=== PATIENT | male | born 1960 | race Caucasian/White ===

== ENCOUNTER 2018-05-08 07:54 | Inpatient (IN) ==
[2018-05-08] MEDS ORDERED: Ondansetron 4 MG/2 ML VIAL IVP ONE (08:06)
[2018-05-08] MEDS ORDERED: Ketorolac 30 MG/ML VIAL IVP ONE (08:06)
[2018-05-08] MEDS ORDERED: Pantoprazole 40 MG VIAL IVP ONE (08:17)
[2018-05-08 08:31] LABS: Basophils % 0.4 %; Eosinophils # 0.1 K/mcL (0.0-0.6); Eosinophils % 1.2 %; Hematocrit 45.4 % (37.5-50.1); Hemoglobin 15.7 g/dL (12.9-16.9); Lymphocytes # 1.2 K/mcL (0.6-4.6); Lymphocytes % 11.1 %; Mean Corpuscular HGB Conc 34.6 g/dL (31.6-35.5); Mean Corpuscular Hemoglobin 33.6 pg (28.0-33.3); Mean Corpuscular Volume 97.2 fL (83.0-100.0); Mean Platelet Volume 8.7 fL (9.4-12.4); Monocytes # 0.5 K/mcL (0.0-1.3); Monocytes % 4.5 %; Neutrophils # 8.9 K/mcL (1.6-8.9); Platelet Count 325 K/mcL (140-400); Red Blood Count 4.67 M/mcL (4.19-5.50); Red Cell Distribution Width 11.9 % (11.5-14.5); Segmented Neutrophils % 81.8 %
--- NOTE | 2018-05-08 08:39 | Emergency Department Note ---
Disposition Clinical Impression: Small bowel obstruction Disposition: Admitted As Inpatient Abdominal Pain HPI - General Chief Complaint: ED Abdominal Pain Stated Complaint: abd pain Time Seen by Provider: 05/08/18 08:02 Source: patient, EMS Mode of arrival: ambulatory Limitations: no limitations Nursing Notes Reviewed: Yes Vital Signs Reviewed: Yes - History of Present Illness HPI Narrative: 57 year old male presents with acute abdominal pain. Pt stated it was constant sharp pain in upper abdomen and periumbilic area since 9 oclock last night (12 hours ago). Associate with nausea no vomiting. No diarrhea. No constipation. Pt stated his last time bowel movement was yesterday. Pt Subjective Complaint: abdominal pain Onset (ago): hour(s) (12) Consistency: constant Location: diffuse Pain Scale: 10 Quality: sharp - Related Data Home Medications Medication Instructions Recorded Confirmed Albuterol Sulfate [Ventolin Hfa] 2 puff IH Q6H PRN 05/08/18 05/08/18 Fenofibrate Nanocrystallized 160 mg PO DAILY 05/08/18 05/08/18 [Triglide] Fluticasone Propionate Nasal 50 mcg NS DAILY PRN 05/08/18 05/08/18 [Flonase] Metformin HCl [Metformin HCl ER] 500 mg PO DAILY 05/08/18 05/08/18 Metoprolol Succinate [Toprol Xl] 25 mg PO DAILY 05/08/18 05/08/18 Oxycodone HCl [Roxybond] 15 mg PO Q6H 05/08/18 05/08/18 Pregabalin [Lyrica] 200 mg PO TID 05/08/18 05/08/18 RX: Fluticasone/Vilanterol [Breo 1 puff IH DAILY 05/08/18 05/08/18 Ellipta 200-25 Mcg INH] RX: Furosemide [Lasix] 40 mg PO DAILY 05/08/18 05/08/18 RX: Losartan Potassium [Cozaar] 100 mg PO DAILY 05/08/18 05/08/18 Testosterone [Androgel] 4 appl TD DAILY 05/08/18 05/08/18 Allergies Allergy/AdvReac Type Severity Reaction Status Date / Time lorazepam [From Ativan] AdvReac Hallucinati Verified 05/08/18 12:06 ng Constitutional: Denies: fever Eyes: Denies: eye pain ENT ED: Denies: ear pain Respiratory: Denies: cough Gastrointestinal: Reports: abdominal pain, nausea Genitourinary: Denies: urgency Musculoskeletal: Denies: back pain Integumentary: Denies: rash Neurological: Denies: headache Psychiatric: Denies: anxiety Endocrine: Denies: fatigue Hematological/Lymphatic: Denies: easy bleeding Allergic/Immunologic: Denies: facial swelling Abdominal Pain PMH - Past Medical History Medical history: Reports: diabetes, hypertension, other Male Surgical History: Reports: other Psychiatric history: Reports: no psych history - Social History Smoking status: Current every day smoker Alcohol use: Reports: none Physical Exam - General Limitations: no limitations General appearance: alert - Head Head exam: atraumatic - Eye Eye exam: Present: normal appearance. Absent: scleral icterus - ENT ENT exam: normal exam - Neck Neck exam: Present: normal inspection - Chest Chest inspection: Present: normal inspection, symmetric chest wall rise - Respiratory Respiratory exam: Present: normal lung sounds bilaterally. Absent: respiratory distress, wheezes - Cardiovascular Cardiovascular exam: Present: regular rate, normal rhythm - Abdominal Exam Abdominal exam: Present: soft, tenderness (diffused tender in upper and periumbilic area) - Extremities Exam Extremities exam: Present: normal inspection - Back Exam Back exam: Present: normal inspection - Neurological Exam Neurological exam: Present: alert, oriented X3 - Psychiatric Psychiatric exam: Present: normal affect - Skin Skin exam: Present: warm, intact Course Vital Signs Temperature 97.6 F 05/08/18 08:02 Pulse Rate 57 05/08/18 08:02 Respiratory Rate 26 05/08/18 08:02 Blood Pressure 184/106 05/08/18 08:02 O2 Sat by Pulse Oximetry 96 05/08/18 08:02 Temperature 97.6 F 05/08/18 08:02 Pulse Rate 61 05/08/18 11:56 Respiratory Rate 18 05/08/18 11:56 Blood Pressure 178/101 05/08/18 11:56 O2 Sat by Pulse Oximetry 97 05/08/18 11:56 Oxygen Delivery Oxygen Delivery Nasal Cannula Abdominal Pain - MDM Narrative Medical decision making narrative: 57 year old male presents with acute abdominal pain for 12 hours. Nausea. No vomiting. Last bowel movement was yesterday. pt reported similar symptoms before. He was referred to specialty and supposed to have some test done. Pt is afebrile. bowel sounds normal, abdomen soft, krystle-umbilica and LUQ tender to palpation. Pt is given one dose of pain medication and nausea medication. Pt reported no pain relief. Adeel Rincon saw the patient and agrees to order abdomen CT. 10:45am spoke with radiology, concerning of small bowel obstruction, possible ca used by internal hernia. a 2cm mass in right kidney. Pt started vomiting stomach content. NG tube ordered 10:50am paged general surgeon. 11:10am Spoke with Dr. Palmer' nurse, dr. Palmer agrees to admit patient in medical floor. He will see the patient in the floor. 11:[address] Davenport, pt is accepted in hospital. - Lab Data Lab results reviewed: Yes I reviewed the patient's lab results. Result diagrams: 05/08/18 08:11 05/08/18 08:11 Lab Results 05/08/18 05/08/18 05/08/18 Range/Units 08:11 08:11 10:46 WBC 10.9 (4.3-11.1) K/mcL RBC 4.67 (4.19-5.50) M/mcL Hgb 15.7 (12.9-16.9) g/dL Hct 45.4 (37.5-50.1) % MCV 97.2 (83.0-100.0) fL MCH 33.6 H (28.0-33.3) pg MCHC 34.6 (31.6-35.5) g/dL RDW 11.9 (11.5-14.5) % Plt Count 325 (140-400) K/mcL MPV 8.7 L (9.4-12.4) fL Immature Gran % 1.0 (0-4) % Seg Neutrophils % 81.8 % Lymphocytes % 11.1 % Monocytes % 4.5 % Eosinophils % 1.2 % Basophils % 0.4 % Neutrophils # 8.9 (1.6-8.9) K/mcL Lymphocytes # 1.2 (0.6-4.6) K/mcL Monocytes # 0.5 (0.0-1.3) K/mcL Eosinophils # 0.1 (0.0-0.6) K/mcL Basophils # 0.0 (0.0-0.2) K/mcL Sodium 137 (136-145) mEq/L Potassium 4.1 (3.5-5.1) mEq/L Chloride 103 (98-107) mEq/L Carbon Dioxide 28 (23-29) mEq/L BUN 14 (6-20) mg/dL Creatinine 0.76 (0.70-1.30) mg/dL Est GFR ( Amer) > 60 (> 60) Est GFR (Non-Af Amer) > 60 (> 60) BUN/Creatinine Ratio 18 (6-26) Glucose 153 H (70-105) mg/dL Calculated Osmolality 288 (280-300) Lactic Acid (0.5-2.2) mmol/L Calcium 9.3 (8.6-10.3) mg/dL Total Bilirubin 0.5 (0.3-1.0) mg/dL AST 15 (13-39) Units/L ALT 13 (7-52) Units/L Alkaline Phosphatase 53 (34-104) Units/L Serum Total Protein 7.5 (6.4-8.9) g/dL Albumin 3.7 (3.5-5.7) g/dL Globulin 3.8 H (2.4-3.5) g/dL Albumin/Globulin Ratio 1.0 L (1.1-2.2) Lipase 10 L (11-82) Units/L Urine Color Yellow (Yellow) Urine Clarity Clear (Clear) Urine pH 8.5 H (5.0-8.0) pH Units Ur Specific [place] 1.012 (1.010-1.025) Urine Protein 30 H (Neg-Trace) mg/dL Urine Glucose (UA) Normal (Normal) mg/dL Urine Ketones Negative (Negative) mg/dL Urine Blood Negative (Negative) Urine Nitrite Negative (Negative) Urine Bilirubin Negative (Negative) Urine Urobilinogen Normal (Normal) mg/dL Ur Leukocyte Esterase Moderate H (Negative) Urine Microscopic RBC 0-3 (0-3) per hpf Urine Microscopic WBC 15-30 H (0-3) per hpf Ur Squamous Epith Cells None Seen (None-Few) per lpf Urine Bacteria Few (None-Few) per hpf Hyaline Casts None Seen (None-Few) per lpf Ur Culture Indicated? YES A (NO) 05/08/18 Range/Units 11:08 WBC (4.3-11.1) K/mcL RBC (4.19-5.50) M/mcL Hgb (12.9-16.9) g/dL Hct (37.5-50.1) % MCV (83.0-100.0) fL MCH (28.0-33.3) pg MCHC (31.6-35.5) g/dL RDW (11.5-14.5) % Plt Count (140-400) K/mcL MPV (9.4-12.4) fL Immature Gran % (0-4) % Seg Neutrophils % % Lymphocytes % % Monocytes % % Eosinophils % % Basophils % % Neutrophils # (1.6-8.9) K/mcL Lymphocytes # (0.6-4.6) K/mcL Monocytes # (0.0-1.3) K/mcL Eosinophils # (0.0-0.6) K/mcL Basophils # (0.0-0.2) K/mcL Sodium (136-145) mEq/L Potassium (3.5-5.1) mEq/L Chloride (98-107) mEq/L Carbon Dioxide (23-29) mEq/L BUN (6-20) mg/dL Creatinine (0.70-1.30) mg/dL Est GFR ( Amer) (> 60) Est GFR (Non-Af Amer) (> 60) BUN/Creatinine Ratio (6-26) Glucose (70-105) mg/dL Calculated Osmolality (280-300) Lactic Acid 1.6 (0.5-2.2) mmol/L Calcium (8.6-10.3) mg/dL Total Bilirubin (0.3-1.0) mg/dL AST (13-39) Units/L ALT (7-52) Units/L Alkaline Phosphatase (34-104) Units/L Serum Total Protein (6.4-8.9) g/dL Albumin (3.5-5.7) g/dL Globulin (2.4-3.5) g/dL Albumin/Globulin Ratio (1.1-2.2) Lipase (11-82) Units/L Urine Color (Yellow) Urine Clarity (Clear) Urine pH (5.0-8.0) pH Units Ur Specific [place] (1.010-1.025) Urine Protein (Neg-Trace) mg/dL Urine Glucose (UA) (Normal) mg/dL Urine Ketones (Negative) mg/dL Urine Blood (Negative) Urine Nitrite (Negative) Urine Bilirubin (Negative) Urine Urobilinogen (Normal) mg/dL Ur Leukocyte Esterase (Negative) Urine Microscopic RBC (0-3) per hpf Urine Microscopic WBC (0-3) per hpf Ur Squamous Epith Cells (None-Few) per lpf Urine Bacteria (None-Few) per hpf Hyaline Casts (None-Few) per lpf Ur Culture Indicated? (NO) - Radiology Data Radiology results reviewed: Yes I reviewed the patient's radiology results. Acute 1-day history of abdominal pain involving the right and left lower quadrant. History of hernia repair. FINDINGS: Lower Chest: There are calcified granulomas in the right lower lobe. Bibasilar atelectasis. Organs: Small volume of ascites around the liver. No focal hepatic lesion. Gallbladder, pancreas, adrenal glands are unremarkable. Spleen is enlarged, 17.1 cm in the craniocaudal dimension. Hypodensity in the spleen, approximately 7 mm in size, is statistically favored to be benign. Differential includes [place] body. Mild right perinephric stranding. Kidneys enhance symmetrically. There is a 1 mm nonobstructing left renal stone. Indistinct hypodensity in the right lower renal pole, approximately 2.1 x 1.7 cm in size. 8 mm right adrenal nodule, probably an adenoma. GI/Bowel: Multiple fluid-filled dilated small bowel in the left midabdomen with relative decompression of the distal colon. There is gas and stool in the proximal colon. Colonic diverticula. No evidence of diverticulitis. There is stranding of the mesentery with edema of the mesentery in the left midabdomen. Questionable tethering point in the left midabdomen raises possibility of an internal hernia. Pelvis: Bladder is decompressed. Ifnat-cd-gpyqbdtc free fluid in the pelvis. Evaluation of the left hemipelvis is limited by beam hardening artifact from left hip arthroplasty. Peritoneum/Retroperitoneum: Abdominal aorta caliber is normal. No retroperitoneal adenopathy. Bones/Soft Tissues: Fat containing anterior abdominal wall hernia with no associated inflammation or bowel herniation. No aggressive lytic or blastic bony lesion. Moderate degenerative disc disease in the lumbar spine with straightening of the lumbar lordosis. CT/CT abd pelvis w iv no oral IMPRESSION: 1. Small bowel obstruction with fluid-filled loops of small bowel in the left midabdomen. There is questionable tethering of the mesentery in the left midabdomen with relative decompression of the distal small bowel. This raises the possibility of an internal hernia versus closed loop obstruction in the left midabdomen. 2. Indistinct 2.1 x 1.7 cm hypodensity in the right lower renal pole. Recommend CT or MR per renal mass protocol on a nonemergent basis for further evaluation. 3. Nonobstructing left nephrolithiasis. 4. Splenomegaly. 5. Jxyvk-kh-vucvnjlx amount of free fluid in the right upper quadrant of the abdomen and in the pelvis. 6. Fat containing anterior abdominal wall hernia. Findings were discussed with Eber Khan at 10:40 am on 05/08/2018. D/ / 05/08/2018 10:51:22 Erlin Bautista MD / [email or web address] Interpreting Provider: Erlin Bautista MD
[2018-05-08] MEDS ORDERED: GI Cocktail 40 ML EACH PO ONE (08:47)
[2018-05-08 08:51] LABS: Alanine Aminotransferase 13 Units/L (7-52); Albumin 3.7 g/dL (3.5-5.7); Alkaline Phosphatase 53 Units/L (34-104); Aspartate Amino Transferase 15 Units/L (13-39); BUN/Creatinine Ratio 18 (6-26); Bilirubin,Total 0.5 mg/dL (0.3-1.0); Blood Urea Nitrogen 14 mg/dL (6-20); Calcium 9.3 mg/dL (8.6-10.3); Carbon Dioxide 28 mEq/L (23-29); Chloride 103 mEq/L (98-107); Globulin 3.8 g/dL (2.4-3.5); Glucose 153 mg/dL (70-105); Lipase 10 Units/L (11-82); Osmolality,Calculated 288 (280-300); Potassium 4.1 mEq/L (3.5-5.1); Sodium 137 mEq/L (136-145); Total Protein 7.5 g/dL (6.4-8.9); eGFR For Non-African Americans > 60 (> 60)
[2018-05-08] MEDS ORDERED: Isovue-370 500 ML INFUS..BTL IV ONE (09:44)
[2018-05-08] MEDS ORDERED: *HR* FentaNYL (PF) 100 MCG/2 ML VIAL IVP ONE ×2 (10:48→11:42)
[2018-05-08] MEDS ORDERED: 0.9 % Sodium Chloride 1,000 ML IVC ONE ×2 (10:49→21:33)
--- NOTE | 2018-05-08 10:52 | Emergency Department Note ---
Disposition Clinical Impression: Small bowel obstruction Disposition: Admitted As Inpatient Referrals: Keith Spann MD [Primary Care Provider] - Forms: ED Satisfaction Letter, Work/School Release General Adult HPI - General Chief complaint: ED Abdominal Pain Stated complaint: abd pain Time Seen by Provider: 05/08/18 08:02 Source: patient, EMS Mode of arrival: ambulatory Limitations: no limitations - History of Present Illness Pain Scale: 10 - Related Data Home Medications Medication Instructions Recorded Confirmed Androgel 12/30/16 Breo Ellipta 200-25 Mcg INH 12/30/16 Celecoxib [Celebrex] 200 mg PO DAILY 12/30/16 12/30/16 Fenofibrate Nanocrystallized 160 mg PO 12/30/16 [Triglide] Flovent Hfa 12/30/16 Furosemide [Lasix] 40 mg PO DAILY 12/30/16 12/30/16 Ipratropium/Albuterol Neb [Duoneb] 12/30/16 Ketoconazole 2% CRM 12/30/16 Losartan Potassium [Cozaar] 100 mg PO DAILY 12/30/16 12/30/16 Metformin HCl [Metformin HCl ER] 500 mg PO 12/30/16 Metoprolol Succinate 25 mg PO 12/30/16 Oxycodone HCl [Oxycodone HCl ER] 15 mg PO 12/30/16 Pregabalin [Lyrica] 100 mg PO 12/30/16 Sildenafil Citrate [Viagra] 12/30/16 12/30/16 SitaGLIPtin [Januvia] 100 mg PO DAILY 12/30/16 12/30/16 Triamcinolone Acet 12/30/16 Previous Rx's Medication Instructions Recorded Mupirocin [Bactroban Oint] 1 appl TP BID 7 Days tube 12/30/16 Sulfamethoxazole/Trimeth DS 1 each PO BID #14 tablet 12/30/16 [Bactrim DS] Benzonatate [Tessalon] 200 mg PO TID PRN #30 capsule 08/22/17 GuaiFENesin ER [Mucinex] 1,200 mg PO BID #20 tbbp.12hr 08/22/17 cephALEXin [Keflex] 500 mg PO QID #40 capsule 08/22/17 methylPREDNISolone [Medrol] 4 mg PO TAPER #21 tablet 08/22/17 Allergies Allergy/AdvReac Type Severity Reaction Status Date / Time lorazepam [From Ativan] Allergy Hallucinati Verified 05/08/18 08:02 ng Past Medical History - Past Medical History Medical history: Reports: diabetes, hypertension, other Psychiatric history: Reports: no psych history - Social History Smoking Status: Current every day smoker Smokeless Tobacco Status: No Alcohol use: Reports: none Physical Exam - General Limitations: no limitations General appearance: alert Course Vital Signs Temperature 97.6 F 05/08/18 08:02 Pulse Rate 57 05/08/18 08:02 Respiratory Rate 26 05/08/18 08:02 Blood Pressure 184/106 05/08/18 08:02 O2 Sat by Pulse Oximetry 96 05/08/18 08:02 Temperature 97.6 F 05/08/18 08:02 Pulse Rate 69 05/08/18 09:51 Respiratory Rate 20 05/08/18 09:51 Blood Pressure 156/93 05/08/18 09:51 O2 Sat by Pulse Oximetry 98 05/08/18 09:51 Oxygen Delivery Oxygen Delivery Nasal Cannula Medical Decision Making - Lab Data Result diagrams: 05/08/18 08:11 05/08/18 08:11 Lab Results 05/08/18 05/08/18 Range/Units 08:11 08:11 WBC 10.9 (4.3-11.1) K/mcL RBC 4.67 (4.19-5.50) M/mcL Hgb 15.7 (12.9-16.9) g/dL Hct 45.4 (37.5-50.1) % MCV 97.2 (83.0-100.0) fL MCH 33.6 H (28.0-33.3) pg MCHC 34.6 (31.6-35.5) g/dL RDW 11.9 (11.5-14.5) % Plt Count 325 (140-400) K/mcL MPV 8.7 L (9.4-12.4) fL Immature Gran % 1.0 (0-4) % Seg Neutrophils % 81.8 % Lymphocytes % 11.1 % Monocytes % 4.5 % Eosinophils % 1.2 % Basophils % 0.4 % Neutrophils # 8.9 (1.6-8.9) K/mcL Lymphocytes # 1.2 (0.6-4.6) K/mcL Monocytes # 0.5 (0.0-1.3) K/mcL Eosinophils # 0.1 (0.0-0.6) K/mcL Basophils # 0.0 (0.0-0.2) K/mcL Sodium 137 (136-145) mEq/L Potassium 4.1 (3.5-5.1) mEq/L Chloride 103 (98-107) mEq/L Carbon Dioxide 28 (23-29) mEq/L BUN 14 (6-20) mg/dL Creatinine 0.76 (0.70-1.30) mg/dL Est GFR ( Amer) > 60 (> 60) Est GFR (Non-Af Amer) > 60 (> 60) BUN/Creatinine Ratio 18 (6-26) Glucose 153 H (70-105) mg/dL Calculated Osmolality 288 (280-300) Calcium 9.3 (8.6-10.3) mg/dL Total Bilirubin 0.5 (0.3-1.0) mg/dL AST 15 (13-39) Units/L ALT 13 (7-52) Units/L Alkaline Phosphatase 53 (34-104) Units/L Serum Total Protein 7.5 (6.4-8.9) g/dL Albumin 3.7 (3.5-5.7) g/dL Globulin 3.8 H (2.4-3.5) g/dL Albumin/Globulin Ratio 1.0 L (1.1-2.2) Lipase 10 L (11-82) Units/L Attestation Statement - Attestation Attestation: 57 year old male presents to the ED with complaints of abdominal pain. Itappears on CT he has a small bowel obstruction and renal mass. We will consult with surgery and then admit For this encounter, I have reviewed the CHILD CARE EDUCATION COORDINATOR or PA documentation, treatment plan, and medical decision making; and I have had face to face time with this patient.
[2018-05-08 10:59] LABS: Bacteria,Urine Few per hpf (None-Few); Bilirubin,Urine Negative (Negative); Blood,Urine Negative (Negative); Clarity,Urine Clear (Clear); Color,Urine Yellow (Yellow); Hyaline Casts,Urine None Seen per lpf (None-Few); Ketones,Urine Negative (Negative); Leukocyte Esterase,Urine Moderate (Negative); Nitrite,Urine Negative (Negative); PH,Urine 8.5 pH Units (5.0-8.0); Protein,Urine 30 mg/dL (Neg-Trace); RBC,Urine 0-3 per hpf (0-3); Specific Gravity,Urine 1.012 (1.010-1.025); Squamous Epithelial Cell,Urine None Seen per lpf (None-Few); Urobilinogen,Urine Normal (Normal); WBC,Urine 15-30 per hpf (0-3)
[2018-05-08] MEDS ORDERED: Ondansetron 4 MG/2 ML VIAL IM ONE (11:00)
[2018-05-08 11:01] LABS: Glucose,Urine (UA) Normal (Normal)
[2018-05-08] MEDS ORDERED: Naloxone 0.4 MG/ML INJ IVP PRN ×2 (12:20→21:33)
[2018-05-08] MEDS ORDERED: Fluticasone Propionate Nasal 50 MCG/SPRAY BOTTLE NS PRN ×2 (12:29→21:33)
[2018-05-08] MEDS ORDERED: 0.9 % Sodium Chloride 1,000 ML IVC SCH ×2 (12:30→21:33)
[2018-05-08] MEDS ORDERED: *HR* OxyCODONE Immed Rel 15 MG TABLET PO SCH (12:30)
[2018-05-08] MEDS ORDERED: Ketorolac 30 MG/ML VIAL IVP PRN (12:34)
--- NOTE | 2018-05-08 12:52 | Internal Med History&Physical ---
Date of Encounter: 05/08/18 Time of Encounter: 11:00 Internal Medicine - H&P: HPI Chief complaint: Abdominal pain Admitted From: Home Plans for Post Hospital Care: Home History of present illness: Patient is a 57-year-old male with past medical history significant for diabetes and hypertension who presents to the ER on 05/08/18 due to abdominal pain. Patient reports a long-standing history of intermittent abdominal pain for last couple years and was supposed to have been seen by GI as an outpatient for workup. Patient reports however for the last 24 hours of sharp periumbilical abdominal pain which is constant without any provoking or relieving factors. Patient reports associated symptoms of nausea. Patient was brought to the ER for further evaluation. In the ER, CT of the abdomen showed small bowel obstruction with fluid-filled loops of small bowel in the left mid abdomen with questionable tethering of the mesentery in the left mid abdomen with relative decompression of the distal small bowel with concerns for internal hernia versus closed loop obstruction. Surgery was consulted from the ER and will be admitted for management for small bowel obstruction. Past Med Surg Social Fam HX - Past Medical History Medical history: diabetes, hypertension, other Additional medical history: unspecified lung problems Psychiatric history: no psych history - Past Surgical History Additional surgical history: abd surgery - Social History Smoking Status: Current every day smoker Smokeless Tobacco Status: No Alcohol use: none - Additional Family History Additional family history: Family history reviewed and noncontributory Internal Medicine - H&P: Meds Albuterol Sulfate [Ventolin Hfa] 2 puff IH Q6H PRN 05/08/18 [History] Fenofibrate Nanocrystallized [Triglide] 160 mg PO DAILY 05/08/18 [History] Fluticasone Propionate Nasal [Flonase] 50 mcg NS DAILY PRN 05/08/18 [History] Fluticasone/Vilanterol [Breo Ellipta 200-25 Mcg INH] 1 puff IH DAILY 05/08/18 [History] Furosemide [Lasix] 40 mg PO DAILY 05/08/18 [History] Losartan Potassium [Cozaar] 100 mg PO DAILY 05/08/18 [History] Metformin HCl [Metformin HCl ER] 500 mg PO DAILY 05/08/18 [History] Metoprolol Succinate [Toprol Xl] 25 mg PO DAILY 05/08/18 [History] Oxycodone HCl [Roxybond] 15 mg PO Q6H 05/08/18 [History] Pregabalin [Lyrica] 200 mg PO TID 05/08/18 [History] Testosterone [Androgel] 4 appl TD DAILY 05/08/18 [History] Allergy/AdvReac Type Severity Reaction Status Date / Time lorazepam [From Ativan] AdvReac Hallucinati Verified 05/08/18 12:06 ng All Systems PM: A 10-system review of systems was performed and is negative for pertinent findings except as documented above in the HPI. - Constitutional Vitals: Temp Pulse Resp BP Pulse Ox 97.6 F 61 18 178/101 97 05/08/18 08:02 05/08/18 11:56 05/08/18 11:56 05/08/18 11:56 05/08/18 11:56 General appearance: Present: A&O X 3, no acute distress Exam: As above - Head Head exam: Present: normocephalic - Eye Eye exam: Present: normal appearance - ENT ENT exam: Present: mucous membranes moist - Respiratory Respiratory exam: Present: CTAB. Absent: accessory muscle use, rales, rhonchi, wheezes - Cardiovascular Cardiovascular exam: Present: RRR, +S1, +S2. Absent: diastolic murmur, gallop, rubs, systolic murmur - GI/Abdominal GI/Abdominal exam: Present: soft, tenderness (Her last tetanus to palpation). Absent: distended, no peritoneal signs - Extremities Exam Extremities exam: Absent: pedal edema - Neurological Exam Neurological exam: Present: oriented X3 - Psychiatric Psychiatric exam: Present: normal mood - Skin Skin exam: Present: normal color Internal Med - H&P Results - Labs CBC & Chem 7: 05/08/18 08:11 05/08/18 08:11 Labs: Short CBC 05/08/18 Range/Units 08:11 WBC 10.9 (4.3-11.1) K/mcL Hgb 15.7 (12.9-16.9) g/dL Hct 45.4 (37.5-50.1) % Plt Count 325 (140-400) K/mcL Neutrophils # 8.9 (1.6-8.9) K/mcL BMP 05/08/18 08:11 Sodium 137 Potassium 4.1 Chloride 103 Carbon Dioxide 28 BUN 14 Creatinine 0.76 Glucose 153 H Calcium 9.3 Liver Function 05/08/18 Range/Units 08:11 Total Bilirubin 0.5 (0.3-1.0) mg/dL AST 15 (13-39) Units/L ALT 13 (7-52) Units/L Alkaline Phosphatase 53 (34-104) Units/L Albumin 3.7 (3.5-5.7) g/dL Urine 05/08/18 Range/Units 10:46 Urine Color Yellow (Yellow) Urine Clarity Clear (Clear) Urine pH 8.5 H (5.0-8.0) pH Units Ur Specific [place] 1.012 (1.010-1.025) Urine Protein 30 H (Neg-Trace) mg/dL Urine Glucose (UA) Normal (Normal) mg/dL - Impressions ITS Impressions Abdomen/Pelvis CT 05/08/18 09:44 IMPRESSION: 1. Small bowel obstruction with fluid-filled loops of small bowel in the left midabdomen. There is questionable tethering of the mesentery in the left midabdomen with relative decompression of the distal small bowel. This raises the possibility of an internal hernia versus closed loop obstruction in the left midabdomen. 2. Indistinct 2.1 x 1.7 cm hypodensity in the right lower renal pole. Recommend CT or MR per renal mass protocol on a nonemergent basis for further evaluation. 3. Nonobstructing left nephrolithiasis. 4. Splenomegaly. 5. Myoio-ck-lcufvmek amount of free fluid in the right upper quadrant of the abdomen and in the pelvis. 6. Fat containing anterior abdominal wall hernia. Findings were discussed with Eber Khan at 10:40 am on 05/08/2018. D/ / 05/08/2018 10:51:22 Erlin Bautista MD / [email or web address] Interpreting Provider: Erlin Bautista MD KUB X-Ray 05/08/18 11:40 IMPRESSION: Intestinal tube terminates in the stomach. Diffuse mild prominence of the intestinal tract is noted with ileus or obstruction possible. No free air is noted. D/ / Alla Armenta MD / Alla Armenta MD Interpreting Provider: Alla Armenta MD - Assessment and plan (1) Small bowel obstruction Current Visit: Yes Status: Acute Assessment and plan: Patient reports however for the last 24 hours of sharp periumbilical abdominal pain which is constant without any provoking or relieving factors. In the ER, CT of the abdomen showed small bowel obstruction with fluid-filled loops of small bowel in the left mid abdomen with questionable tethering of the mesentery in the left mid abdomen with relative decompression of the distal small bowel with concerns for internal hernia versus closed loop obstruction. Will maintain NG tube placed in the ER. General surgery was consulted and appreciate recommendations. (2) HTN (hypertension), benign Current Visit: Yes Status: Acute Assessment and plan: Will continue patient's home blood pressure medications (3) Diabetes Current Visit: Yes Status: Acute Assessment and plan: Will hold patient's metformin while nothing by mouth and monitor blood sugars. Qualifiers: Chronic kidney disease stage: unspecified stage Qualified Code(s): E08.22 - Diabetes mellitus due to underlying condition with diabetic chronic kidney disease; Z79.4 - half-way (current) use of insulin (4) DVT prophylaxis Current Visit: Yes Status: Acute Assessment and plan: Subcutaneous heparin - Time Spent With Patient Total time spent is greater than 50% in coordination of care (as documented) at patient's floor/unit and/or counseling patient:
[2018-05-08] MEDS ORDERED: OXYCODONE Oral CONC 10 MG/0.5 ML ORAL.SYG SL PRN (14:20)
--- NOTE | 2018-05-08 14:52 | General Surgery Consult Note ---
Date of Encounter: 05/08/18 Time of Encounter: 14:44 Assessment and Plan (1) Small bowel obstruction Current Visit: Yes Status: Acute 57M multiple comorbidities, significant weight loss, with small bowel obstruction concerning for an internal hernia; non peritoneal; NPO IVF NG tube pain control discussed with patient concerning operative intervention; patient is agreeable History of Present Illness Consult date: 05/08/18 Reason for consult: abdominal pain History of present illness: 57M h/o obesity, current smoker, HTN, borderline DM with a long standing history (4-6 months) of intermittend abdominal pain that suddenly got worse overnight. The pain is localized to the left periumbilical region, non radiating, with no alleviating or exacerbating factors. the pain is sharp in nature. The patient states that although it has been an ongoing issue, he states that now the pain is constant and progressively getting worse. no reports of systemic symptoms, such as fevers, chills, vomiting (he does report nausea), chest pain, shortness of breath, nor lightheadedness Of note, the patient has lost a tremendous amount of weight. Per his daughter he has lost about 200lbs over the last 3 months. He has not had gastric bypass surgery. No prior colonoscopies. A CT scan was ordered, which was reviewed and interpreted by me, which demonstrated a small bowel obstruction, possible mesenteric whirling, which is concerning for an internal hernia. Surgery was consulted for management recommendations. Past Med Surg Social Fam HX - Past Medical History Medical history: COPD, diabetes, hypertension, other Additional medical history: unspecified lung problems Psychiatric history: no psych history - Past Surgical History Surgical History: other (open hernia repair, prior ex lap for sbo) Additional surgical history: abd surgery- hernia repair - Social History Smoking Status: Current every day smoker Packs per day: 1 pack per day of cigars (5 cigars) Smokeless Tobacco Status: No Alcohol use: none Medications and Allergies Albuterol Sulfate [Ventolin Hfa] 2 puff IH Q6H PRN 05/08/18 [History] Fenofibrate Nanocrystallized [Triglide] 160 mg PO DAILY 05/08/18 [History] Fluticasone Propionate Nasal [Flonase] 50 mcg NS DAILY PRN 05/08/18 [History] Fluticasone/Vilanterol [Breo Ellipta 200-25 Mcg INH] 1 puff IH DAILY 05/08/18 [History] Furosemide [Lasix] 40 mg PO DAILY 05/08/18 [History] Losartan Potassium [Cozaar] 100 mg PO DAILY 05/08/18 [History] Metformin HCl [Metformin HCl ER] 500 mg PO DAILY 05/08/18 [History] Metoprolol Succinate [Toprol Xl] 25 mg PO DAILY 05/08/18 [History] Oxycodone HCl [Roxybond] 15 mg PO Q6H 05/08/18 [History] Pregabalin [Lyrica] 200 mg PO TID 05/08/18 [History] Testosterone [Androgel] 4 appl TD DAILY 05/08/18 [History] Allergy/AdvReac Type Severity Reaction Status Date / Time lorazepam [From Ativan] AdvReac Hallucinati Verified 05/08/18 12:06 ng Review of Systems All systems PM: 12 point ROS negative besides HPI findings General Surgery Exam Initial Vital Signs Temp Pulse Resp BP Pulse Ox 97.6 F 57 26 184/106 96 05/08/18 08:02 05/08/18 08:02 05/08/18 08:02 05/08/18 08:02 05/08/18 08:02 - General physical appearance no distress, moderate pain - Eyes normal ocular movement - ENT normocephalic - Neck no lymphadectomy - Respiratory normal expansion, normal respiratory effort - Cardiovascular Cardiovascular exam: Present: RRR - Abdomen Abdomen general surgery: Present: soft, tender (non peritoneal on exam), surgical scars Hernia: Present: none (no external hernias on exam) - Integumentary Integumentary general surgery: Present: warm and dry, no abnormal pigmentation - Neurologic Present: CN 2-12 grossly intact - Musculoskeletal Present: normal posture - Psychiatric Psychiatric general surgery: Present: A&Ox3 Exam Initial Vital Signs Temp Pulse Resp BP Pulse Ox 97.6 F 57 26 184/106 96 05/08/18 08:02 05/08/18 08:02 05/08/18 08:02 05/08/18 08:02 05/08/18 08:02 Results - Labs 05/08/18 08:11 05/08/18 08:11 Abnormal lab results MCH 33.6 pg (28.0-33.3) H 05/08/18 08:11 MPV 8.7 fL (9.4-12.4) L 05/08/18 08:11 Glucose 153 mg/dL (70-105) H 05/08/18 08:11 Globulin 3.8 g/dL (2.4-3.5) H 05/08/18 08:11 Albumin/Globulin Ratio 1.0 (1.1-2.2) L 05/08/18 08:11 Lipase 10 Units/L (11-82) L 05/08/18 08:11 Urine pH 8.5 pH Units (5.0-8.0) H 05/08/18 10:46 Urine Protein 30 mg/dL (Neg-Trace) H 05/08/18 10:46 Ur Leukocyte Esterase Moderate (Negative) H 05/08/18 10:46 Urine Microscopic WBC 15-30 per hpf (0-3) H 05/08/18 10:46 Ur Culture Indicated? YES (NO) A 05/08/18 10:46 Diabetes panel 05/08/18 Range/Units 08:11 Sodium 137 (136-145) mEq/L Potassium 4.1 (3.5-5.1) mEq/L Chloride 103 (98-107) mEq/L Carbon Dioxide 28 (23-29) mEq/L BUN 14 (6-20) mg/dL Creatinine 0.76 (0.70-1.30) mg/dL Glucose 153 H (70-105) mg/dL Calcium 9.3 (8.6-10.3) mg/dL AST 15 (13-39) Units/L ALT 13 (7-52) Units/L Alkaline Phosphatase 53 (34-104) Units/L Albumin 3.7 (3.5-5.7) g/dL Calcium panel 05/08/18 Range/Units 08:11 Calcium 9.3 (8.6-10.3) mg/dL Albumin 3.7 (3.5-5.7) g/dL Pituitary panel 05/08/18 Range/Units 08:11 Sodium 137 (136-145) mEq/L Potassium 4.1 (3.5-5.1) mEq/L Chloride 103 (98-107) mEq/L Carbon Dioxide 28 (23-29) mEq/L BUN 14 (6-20) mg/dL Creatinine 0.76 (0.70-1.30) mg/dL Glucose 153 H (70-105) mg/dL Calcium 9.3 (8.6-10.3) mg/dL Adrenal panel 05/08/18 Range/Units 08:11 Sodium 137 (136-145) mEq/L Potassium 4.1 (3.5-5.1) mEq/L Chloride 103 (98-107) mEq/L Carbon Dioxide 28 (23-29) mEq/L BUN 14 (6-20) mg/dL Creatinine 0.76 (0.70-1.30) mg/dL Glucose 153 H (70-105) mg/dL Calcium 9.3 (8.6-10.3) mg/dL Total Bilirubin 0.5 (0.3-1.0) mg/dL AST 15 (13-39) Units/L ALT 13 (7-52) Units/L Alkaline Phosphatase 53 (34-104) Units/L Albumin 3.7 (3.5-5.7) g/dL All other labs normal. - Imaging CT scan - abdomen: report reviewed, image reviewed CT scan - pelvis: report reviewed, image reviewed Consult Discharge Plan - Plan Referrals: Keith Spann MD [Primary Care Provider] -
--- NOTE | 2018-05-08 14:56 | Anesthesia Evaluation PreOp ---
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: Other (spinal stenosis) Other Medical History: Hepatic (Hep C), Renal (stones), Diabetes Type II (oral medications only, well controlled), Other (small bowel obstuction, abd wall hernia, obesity) Anesthesia History: No Prior Anesthetic Complications, Past Anesthesia (hernia repair, ex lap) Alcohol Use: none Medications and Allergies Albuterol Sulfate [Ventolin Hfa] 2 puff IH Q6H PRN 05/08/18 [History] Fenofibrate Nanocrystallized [Triglide] 160 mg PO DAILY 05/08/18 [History] Fluticasone Propionate Nasal [Flonase] 50 mcg NS DAILY PRN 05/08/18 [History] Fluticasone/Vilanterol [Breo Ellipta 200-25 Mcg INH] 1 puff IH DAILY 05/08/18 [History] Furosemide [Lasix] 40 mg PO DAILY 05/08/18 [History] Losartan Potassium [Cozaar] 100 mg PO DAILY 05/08/18 [History] Metformin HCl [Metformin HCl ER] 500 mg PO DAILY 05/08/18 [History] Metoprolol Succinate [Toprol Xl] 25 mg PO DAILY 05/08/18 [History] Oxycodone HCl [Roxybond] 15 mg PO Q6H 05/08/18 [History] Pregabalin [Lyrica] 200 mg PO TID 05/08/18 [History] Testosterone [Androgel] 4 appl TD DAILY 05/08/18 [History] Allergy/AdvReac Type Severity Reaction Status Date / Time lorazepam [From Ativan] AdvReac Hallucinati Verified 05/08/18 12:06 ng - Meds/Allergy Pre-op Review Medications Reviewed: Yes Allergies Reviewed: Yes Beta Blockers on Current Med List: Yes (metoprolol) If Beta Blockers taken, Date/Time (Last Dose taken): not administered today Anesthesia Results - Labs 05/08/18 08:11 05/08/18 08:11 - Imaging Additional studies: 05-08-18 CT abd/pelvis with IV (no oral) contrast: IMPRESSION: 1. Small bowel obstruction with fluid-filled loops of small bowel in the left midabdomen. There is questionable tethering of the mesentery in the left midabdomen with relative decompression of the distal small bowel. This raises the possibility of an internal hernia versus closed loop obstruction in the left midabdomen. 2. Indistinct 2.1 x 1.7 cm hypodensity in the right lower renal pole. Recommend CT or MR per renal mass protocol on a nonemergent basis for further evaluation. 3. Nonobstructing left nephrolithiasis. 4. Splenomegaly. 5. [id number] amount of free fluid in the right upper quadrant of the abdomen and in the pelvis. 6. Fat containing anterior abdominal wall hernia. Findings were discussed with Eber Khna at 10:40 am on 05/08/2018. Anesthesia Exam Last Vital Signs Temp 98.1 F 05/08/18 13:15 Pulse 68 05/08/18 13:15 Resp 16 05/08/18 13:15 BP 196/68 05/08/18 13:15 Pulse Ox 98 05/08/18 13:15 - HEENT Pupil (Motor): Pupils equal, EOMI Mallampati: III Teeth: Edentulous (facial hair) Oral Opening: Greater than 3 - KOSHER DIETARY SERVICE MANAGER LOC: Oriented - Cardiac Rhythm: Regular Murmur: None - Pulmonary Breath Sounds: bilateral Clear Respiratory Effort: Symmetrical Anesthesia Assess/Plan ASA Score: 4 (HTN/HLD, smoker, SHANE, COPD requiring 3-4L oxygen all the time, DM II, Hep C, obesity, spinal stenosis) Level of consciousness: Agitated (patient is in pain) Anesthetic Plan: General Monitoring Plan: Standard Monitors Recovery Plan: PACU
[2018-05-08] MEDS ORDERED: *HR* Promethazine 25 MG/ML VIAL IVP PRN ×2 (15:37→21:33)
[2018-05-08] MEDS ORDERED: Piperacillin/Tazobactam 3.375 GM in 0.9 % Sodium Chloride Mini Bag 100 ML IVPB SCH (16:00)
[2018-05-08] MEDS: Pregabalin 50 MG CAPSULE PO SCH ×2 (16:12→22:43)
[2018-05-08] MEDS ORDERED: *HR* Succinylcholine 200 MG/10 ML VIAL IVP ONE (17:07)
[2018-05-08] MEDS ORDERED: *HR* Midazolam HCl 2 MG/2 ML VIAL ONE (17:07)
[2018-05-08] MEDS ORDERED: Lidocaine -MPF 2% 2 ML VIAL ONE (17:07)
[2018-05-08] MEDS ORDERED: *HR* Propofol 200 MG/20 ML VIAL IVP ONE ×3 (17:07→20:35)
[2018-05-08] MEDS ORDERED: *HR* FentaNYL (PF) 100 MCG/2 ML VIAL ONE ×2 (17:07→18:24)
[2018-05-08] MEDS ORDERED: Acetaminophen IV 1,000 MG/100 ML INFUS..BTL ONE (17:59)
[2018-05-08] MEDS ORDERED: *HR* Metoprolol 5 MG/5 ML VIAL IVP ONE ×2 (18:04→20:12)
[2018-05-08] MEDS ORDERED: *HR* Rocuronium Bromide 50 MG/5 ML VIAL ONE ×2 (18:26→19:52)
[2018-05-08] MEDS ORDERED: Dexamethasone 4 MG/ML VIAL ONE (18:32)
[2018-05-08] MEDS ORDERED: Ondansetron 4 MG/2 ML VIAL ONE ×2 (18:32→20:12)
[2018-05-08] MEDS ORDERED: *HR* OxyCODONE Immed Rel 5 MG TABLET PO PRN (19:28)
[2018-05-08] MEDS ORDERED: *HR* HYDROmorphone (PF) 1 MG/ML SYRINGE IVP PRN (19:28)
[2018-05-08] MEDS ORDERED: *HR* Morphine 10 MG/ML VIAL ONE ×2 (19:30→20:05)
[2018-05-08] MEDS ORDERED: Lidocaine -MPF 4% 5 ML AMPUL ONE (20:22)
[2018-05-08] MEDS ORDERED: Ketorolac 30 MG/ML VIAL ONE (20:39)
--- NOTE | 2018-05-08 21:16 | Operative Note ---
Date of procedure: 05/08/18 Pre-op diagnosis: small bowel obstruction 2/2 internal hernia Post-op diagnosis: same Procedure: exploratory laparotomy lysis of adhesions x 60min reduction of internal hernia small bowel resection with stapled anastamosis Implants: none Complications: none Anesthesia: GETA Local Anesthetics: 0.5% Sensorcaine HCL SubQ (cc) Surgeon: Giles Palmer Was there an evaluation assistant present: No Clinical Audiologist Other: Marciajackie Love Estimated blood loss (cc): 25 Specimen: ischemic bowel - jejunum Condition: stable Disposition: PACU Procedure in Detail: patient was brought into the operating room suite. Placed in supine position. Mechanical DVT prophylaxis was placed. Underwent smooth induction of anesthesia. Preoperative antibiotics were given. Rogers catheter placed. Prepped and draped in the usual fashion. A timeout was held identifying correct patient, pathology, procedure, and physician. I created a midline incision. I created an incision to encompass the prior surgical scar and excised it. I dissected through the tissues using electocautery (controlling for hemostasis along the way), until i entered the abdomen. I took down all adhesions along the midline and lateral abdominal wall using blunt dissection, electrocautery, and the ligasure device. It was mainly omentum that was adhered to the anterior abdominal wall. upon entering the bowel, the was dilated bowel up to the ligament of treitz. I took down several intraloops in the jejunum using blunt dissecion and sharp dissection with the metzenbaum scissors. I then continued to run the bowel until I encountered a segment of bowel that was trapped within a small mesenteric defect near the base of the mesentery. There was about a 30cm segment of compromised bowel (ischemic). I placed a maninder distal to the ischemic segment and continued running the bowel. There were multiple segments of interloop adhesions. Again, I was able to appreciate a small space for an internal hernia. I continued to lyse adhesions until they were all taken down. I followed the bowel all the way to the cecum and palpated the large intestine for masses or abnormalities. It was full of soft stool. I then went back and focused my attention the segment of ischemic bowel. I created a mesenteric window both proximal and distal to the ischemic segment. Used the GIOVANNI linear stapler for the bowel to staple across the bowel. I used the ligasure to ligate the mesentery then remove the segment. I then cut off the corner of the stapled end using benites scissors, dilated both proximal and distal segments and inserted the linear stapler. I fired two loads and then closed the opening with at TA stapler. I used two silk sutures at the 'crotch' of the staple line to reduce tension. Satisfied with my repair, I started the closing procedure. I removed my top glove and replaced with a clean one. I then closed the fascia using the looped PDS suture in a running fashion. I then reapproximated the dermal layer using 3-0 vicryl in an interrupted fashion. I then stapled the skin closed. I applied the PATRICIA dressing to the incision. I then used local anesthetic as a nerve block. I then concluded the procedure. The patient tolerated it well and was escorted to PACu in stable condition
[2018-05-08] MEDS ORDERED: *HR* Metoprolol 5 MG/5 ML VIAL IVP PRN (21:33)
[2018-05-08] MEDS ORDERED: *HR* HYDROmorphone 20 MG/20 ML PCA IVC PRN (21:33)
--- NOTE | 2018-05-08 21:35 | Anesthesia Evaluation Post Op ---
Date of Encounter: 05/08/18 Time of Encounter: 21:34 - Discharge PostOp Status: Transfer Patient to floor (PATIENT'S VITAL SIGNS HAVE BEEN REVIEWED. PATIENT IS STABLE POSTOPERATIVELY AND HAS ADEQUATELY RECOVERED FROM ANESTHESIA. PATIENT IS DETERMINED TO HAVE STABLE AIRWAY PATENCY AND RESPIRATORY FUNCTION INCLUDING RESPIRATORY RATE AND OXYGEN SATURATION. PATIENT HAS A STABLE HEART RATE, BLOOD PRESSURE AND ADEQUATE HYDRATION. PATIENTS MENTAL STATUS IS ACCEPTABLE. PATIENTS TEMPERATURE IS APPROPRIATE. PAIN AND NAUSEA ARE ADEQUATELY CONTROLLED.)
[2018-05-08 22:53] LABS: Basophils % 0.2 %; Hematocrit 41.3 % (37.5-50.1); Hemoglobin 14.6 g/dL (12.9-16.9); Immature Granulocytes % 0.3 % (0-4); Lymphocytes # 0.5 K/mcL (0.6-4.6); Lymphocytes % 3.7 %; Mean Corpuscular HGB Conc 35.4 g/dL (31.6-35.5); Mean Corpuscular Hemoglobin 34.4 pg (28.0-33.3); Mean Corpuscular Volume 97.2 fL (83.0-100.0); Mean Platelet Volume 8.8 fL (9.4-12.4); Monocytes # 0.8 K/mcL (0.0-1.3); Monocytes % 6.6 %; Platelet Count 284 K/mcL (140-400); Red Blood Count 4.25 M/mcL (4.19-5.50); Red Cell Distribution Width 11.9 % (11.5-14.5); Segmented Neutrophils % 89.2 %
[2018-05-08 23:09] LABS: BUN/Creatinine Ratio 19 (6-26); Blood Urea Nitrogen 16 mg/dL (6-20); Calcium 8.4 mg/dL (8.6-10.3); Carbon Dioxide 27 mEq/L (23-29); Chloride 106 mEq/L (98-107); Glucose 195 mg/dL (70-105); Magnesium 1.7 mg/dL (1.6-2.6); Osmolality,Calculated 293 (280-300); Phosphorous 3.7 mg/dL (2.7-4.5); Sodium 138 mEq/L (136-145); eGFR For Non-African Americans > 60 (> 60)
[2018-05-08] MEDS: Piperacillin/Tazobactam 3.375 GM in 0.9 % Sodium Chloride Mini Bag 100 ML IVPB SCH (23:51)
[2018-05-09 04:58] LABS: Basophils % 0.2 %; Hematocrit 43.8 % (37.5-50.1); Hemoglobin 14.8 g/dL (12.9-16.9); Immature Granulocytes % 0.2 % (0-4); Lymphocytes # 0.8 K/mcL (0.6-4.6); Lymphocytes % 4.6 %; Mean Corpuscular HGB Conc 33.8 g/dL (31.6-35.5); Mean Corpuscular Hemoglobin 33.8 pg (28.0-33.3); Monocytes % 6.2 %; Neutrophils # 14.7 K/mcL (1.6-8.9); Platelet Count 277 K/mcL (140-400); Red Blood Count 4.38 M/mcL (4.19-5.50); Red Cell Distribution Width 12.1 % (11.5-14.5); Segmented Neutrophils % 88.8 %
[2018-05-09] MEDS: *HR* Heparin 5,000 UNIT/ML VIAL SQ SCH ×2 (06:22→19:18)
[2018-05-09] MEDS ORDERED: D5% in Water 1,000 ML IVC PRN (07:55)
[2018-05-09] MEDS ORDERED: *HR* Dextrose 50 % in Water (Syg) 50 ML SYRINGE IVP PRN (07:55)
[2018-05-09] MEDS ORDERED: Dextrose Gel 15 GM/37.5 ML TUBE PO PRN ×2 (07:55)
[2018-05-09] MEDS ORDERED: Fenofibrate 54 MG TABLET PO SCH (09:00)
[2018-05-09] MEDS ORDERED: Metoprolol XL (24 HR) Succ 25 MG TAB.ER.24H PO SCH (09:00)
[2018-05-09] MEDS ORDERED: TESTOSTERONE APPL TP SCH (09:00)
[2018-05-09] MEDS ORDERED: Furosemide 40 MG TABLET PO SCH (09:00)
[2018-05-09] MEDS: Piperacillin/Tazobactam 3.375 GM in 0.9 % Sodium Chloride Mini Bag 100 ML IVPB SCH ×2 (09:34→16:02)
[2018-05-09] MEDS: Pantoprazole 40 MG VIAL IVP SCH (09:34)
[2018-05-09] MEDS ORDERED: (Fluticasone/Vilanterol [Breo Ellipta 200-25 Mcg Inh]) IH SCH (10:00)
[2018-05-09] MEDS: 0.9 % Sodium Chloride 1,000 ML IVC SCH ×2 (11:41→19:18)
--- NOTE | 2018-05-09 12:06 | Internal Med Progress Note ---
Hospitalist Progress Note - Encounter Date of Encounter: 05/09/18 Time of Encounter: 12:03 - Subjective Interval History: Postop day 1. Lying comfortably on bed. Family at bedside. Complained of abdominal pain but better. Not passing flatus. Complained of nausea but denies vomiting. He also denies fever chills chest pain shortness of breath. Review the lab with trending up white count. Urine culture pending - Exam Vitals: Temp Pulse Resp BP Pulse Ox 98.5 F 81 18 133/69 93 05/09/18 10:59 05/09/18 10:59 05/09/18 10:59 05/09/18 10:59 05/09/18 10:59 Exam: General appearance: Mild distress due to pain, A&O X 3. Family at bedside, morbidly obese Head exam: Atraumatic Eye exam: EOMI, PERRLA ENT exam: Moist oral mucosa Neck nontender, supple Respiratory exam: Clear to auscultation bilaterally Cardiovascular exam: Regular rate and rhythm, no systolic murmur Abdominal exam: Diffuse tenderness but especially along the incision, slight, no bowel sounds Extremities exam: No calf tenderness Skin-no rash, warm, dry, intact Neurological exam: CN II-XII intact, no focal deficits. No facial droop. Normal speech. - Assessment and Plan (1) Small bowel obstruction Current Visit: Yes Status: Acute Assessment and Plan: Status post small bowel resection, reduction of internal hernia, adhesinolysis on 1123 2017. Postop day 1. Keep patient nothing by mouth, IV fluid, pain management continue antibiotic, strict I&O's in incentive spirometry. General surgeon on board. Continue DVT and GI prophylaxis. Tending of white count even on antibiotic-could be reactionary secondary to a stress as he had surgery. Continue to monitor. CT of the abdomen showed small bowel obstruction with fluid-filled loops of small bowel in the left mid abdomen with questionable tethering of the mesentery in the left mid abdomen with relative decompression of the distal small bowel with concerns for internal hernia versus closed loop obstruction. (2) Diabetes Current Visit: Yes Status: Acute Assessment and Plan: Hold OHA. Accu-Chek, sliding scale insulin. (3) HTN (hypertension), benign Current Visit: Yes Status: Acute Assessment and Plan: Well controlled. Close monitoring. Continue antihypertensive medicine. (4) DVT prophylaxis Current Visit: Yes Status: Acute Assessment and Plan: Subcutaneous heparin - Time Spent with Patient Total time spent is greater than 50% in coordination of care (as documented) at patient's floor/unit and/or counseling patient: 25 - 35 minutes (Discuss plan of care with patient, family, nursing staff) Plan of Care Discussed with: data communications software consultant Internal Medicine: Result - Labs CBC & Chem 7: 05/09/18 04:34 05/08/18 22:41 Labs: Short CBC 05/08/18 05/09/18 Range/Units 22:41 04:34 WBC 12.4 H 16.6 H (4.3-11.1) K/mcL Hgb 14.6 14.8 (12.9-16.9) g/dL Hct 41.3 43.8 (37.5-50.1) % Plt Count 284 277 (140-400) K/mcL Neutrophils # 11.0 H 14.7 H (1.6-8.9) K/mcL BMP 05/08/18 22:41 Sodium 138 Potassium 4.0 Chloride 106 Carbon Dioxide 27 BUN 16 Creatinine 0.84 Glucose 195 H Calcium 8.4 L - Impressions Impressions KUB X-Ray 05/08/18 11:40 IMPRESSION: Intestinal tube terminates in the stomach. Diffuse mild prominence of the intestinal tract is noted with ileus or obstruction possible. No free air is noted. D/ / Alla Armenta MD / Alla Armenta MD Interpreting Provider: Alla Armenta MD Consult Discharge Plan - Plan Referrals: Keith Spann MD [Primary Care Provider] - (2) Diabetes Qualifiers: Chronic kidney disease stage: unspecified stage Qualified Code(s): E08.22 - Diabetes mellitus due to underlying condition with diabetic chronic kidney disease; Z79.4 - care home (current) use of insulin
[2018-05-09] MEDS: Insulin LISPRO 300 UNITS/3 ML VIAL SQ SCH ×2 (12:40→19:45)
--- NOTE | 2018-05-09 13:56 | General Surgery Progress Note ---
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: will add basal due to persistent pain pulm toileting NPO, IVF; will consider TPN if no bowel function in the next 48hrs OOBTC cont with PATRICIA dressing chemical dvt prophylaxis cont with abx f/u labs, replace lytes Subjective Patient reports: feels better, still having pain, pain is less, no flatus, afebrile Objective Vital Signs - Last 8 Hours Temp Pulse Resp BP Pulse Ox 05/09/18 10:59 98.5 F 81 18 133/69 93 05/09/18 07:35 98.8 F 82 16 121/66 92 05/09/18 06:32 98.4 F 83 16 118/63 91 Intake and Output 05/08/18 05/09/18 05/09/18 23:59 07:59 15:59 Intake Total 100 / 100 100 / 100 1000 / 1000 Output Total 1065 / 1065 450 / 450 Balance -965 / -965 -350 / -350 1000 / 1000 Intake: IV Fluids 100 / 100 100 / 100 1000 / 1000 0.9 % Sodium Chloride 1,000 ML 1000 / 1000 @ 125 mls/hr IVC .Q8H ESTRELLA Rx#: [id number] Zosyn 3.375 GM In 0.9 % Sodium 100 / 100 100 / 100 Chloride (Mini-Bag +) 100 ML @ 25 mls/hr IVPB Q8H ESTRELLA Rx#: [id number] Oral 0 / 0 0 / 0 Output: Urine 300 / 300 Gastric Tube Lavage Amount 600 / 600 Right Nare 600 / 600 Estimated Blood Loss 25 / 25 Urine Amount (Catheter) 140 / 140 Catheter 450 / 450 Other: Weight 157 kg Blood Glucose* 164 Patient Weight 05/09/18 23:59 Weight 157 kg - General physical appearance no distress - Respiratory normal expansion, normal respiratory effort - Cardiovascular Cardiovascular exam: Present: RRR - Abdomen Abdomen: Present: soft, tender (appropriately tender) - Incision Incision: Present: clean and dry, intact - Neurologic CN 2-12 grossly intact - Musculoskeletal normal posture - Psychiatric oriented to time, oriented to person, oriented to place - Labs 05/09/18 04:34 05/08/18 22:41 Diabetes panel 05/08/18 Range/Units 22:41 Sodium 138 (136-145) mEq/L Potassium 4.0 (3.5-5.1) mEq/L Chloride 106 (98-107) mEq/L Carbon Dioxide 27 (23-29) mEq/L BUN 16 (6-20) mg/dL Creatinine 0.84 (0.70-1.30) mg/dL Glucose 195 H (70-105) mg/dL Calcium 8.4 L (8.6-10.3) mg/dL Calcium panel 05/08/18 Range/Units 22:41 Calcium 8.4 L (8.6-10.3) mg/dL Phosphorus 3.7 (2.7-4.5) mg/dL Pituitary panel 05/08/18 Range/Units 22:41 Sodium 138 (136-145) mEq/L Potassium 4.0 (3.5-5.1) mEq/L Chloride 106 (98-107) mEq/L Carbon Dioxide 27 (23-29) mEq/L BUN 16 (6-20) mg/dL Creatinine 0.84 (0.70-1.30) mg/dL Glucose 195 H (70-105) mg/dL Calcium 8.4 L (8.6-10.3) mg/dL Adrenal panel 05/08/18 Range/Units 22:41 Sodium 138 (136-145) mEq/L Potassium 4.0 (3.5-5.1) mEq/L Chloride 106 (98-107) mEq/L Carbon Dioxide 27 (23-29) mEq/L BUN 16 (6-20) mg/dL Creatinine 0.84 (0.70-1.30) mg/dL Glucose 195 H (70-105) mg/dL Calcium 8.4 L (8.6-10.3) mg/dL Consult Discharge Plan - Plan Referrals: Keith Spann MD [Primary Care Provider] -
[2018-05-09 15:04] LABS: BUN/Creatinine Ratio 19 (6-26); Blood Urea Nitrogen 15 mg/dL (6-20); Calcium 7.8 mg/dL (8.6-10.3); Carbon Dioxide 28 mEq/L (23-29); Chloride 106 mEq/L (98-107); Glucose 131 mg/dL (70-105); Osmolality,Calculated 291 (280-300); Sodium 139 mEq/L (136-145); eGFR For Non-African Americans > 60 (> 60)
[2018-05-09] MEDS: *HR* HYDROmorphone 20 MG/20 ML PCA IVC PRN (19:20)
[2018-05-10] MEDS: Piperacillin/Tazobactam 3.375 GM in 0.9 % Sodium Chloride Mini Bag 100 ML IVPB SCH ×4 (00:21→23:30)
[2018-05-10] MEDS: Insulin LISPRO 300 UNITS/3 ML VIAL SQ SCH ×5 (00:35→23:32)
[2018-05-10] MEDS: 0.9 % Sodium Chloride 1,000 ML IVC SCH ×3 (03:32→20:14)
[2018-05-10] MEDS: *HR* Heparin 5,000 UNIT/ML VIAL SQ SCH ×2 (05:23→18:27)
[2018-05-10 08:48] LABS: Basophils % 0.2 %; Eosinophils # 0.1 K/mcL (0.0-0.6); Eosinophils % 0.7 %; Hematocrit 38.1 % (37.5-50.1); Immature Granulocytes % 0.5 % (0-4); Lymphocytes # 1.6 K/mcL (0.6-4.6); Lymphocytes % 10.9 %; Mean Corpuscular HGB Conc 34.4 g/dL (31.6-35.5); Mean Corpuscular Hemoglobin 34.1 pg (28.0-33.3); Mean Corpuscular Volume 99.2 fL (83.0-100.0); Mean Platelet Volume 8.5 fL (9.4-12.4); Monocytes % 6.6 %; Neutrophils # 11.6 K/mcL (1.6-8.9); Platelet Count 218 K/mcL (140-400); Red Blood Count 3.84 M/mcL (4.19-5.50); Red Cell Distribution Width 12.4 % (11.5-14.5); Segmented Neutrophils % 81.1 %
[2018-05-10] MEDS: Pantoprazole 40 MG VIAL IVP SCH (08:48)
[2018-05-10 08:51] LABS: Hemoglobin 13.1 g/dL (12.9-16.9)
[2018-05-10 09:08] LABS: BUN/Creatinine Ratio 18 (6-26); Blood Urea Nitrogen 12 mg/dL (6-20); Calcium 8.1 mg/dL (8.6-10.3); Carbon Dioxide 27 mEq/L (23-29); Chloride 106 mEq/L (98-107); Glucose 99 mg/dL (70-105); Magnesium 1.8 mg/dL (1.6-2.6); Osmolality,Calculated 286 (280-300); Potassium 3.7 mEq/L (3.5-5.1); Sodium 138 mEq/L (136-145); eGFR For Non-African Americans > 60 (> 60)
[2018-05-10] MEDS: *HR* HYDROmorphone 20 MG/20 ML PCA IVC PRN (09:39)
--- NOTE | 2018-05-10 10:50 | General Surgery Progress Note ---
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 improved pulm toileting NPO, IVF; will consider TPN if no bowel function in the next 24hrs OOBTC cont with PATRICIA dressing chemical dvt prophylaxis cont with abx f/u labs, replace lytes Subjective Patient reports: no new complaints, feels better, still having pain, pain is less, no flatus, no bowel movement, afebrile Objective Vital Signs - Last 8 Hours Temp Pulse Resp BP Pulse Ox 05/10/18 10:06 98.5 F 78 18 127/71 93 05/10/18 06:44 98.8 F 83 18 146/74 92 05/10/18 03:57 99.5 F 77 16 132/69 94 Intake and Output 05/09/18 05/10/18 05/10/18 23:59 07:59 15:59 Intake Total 1100 / 1100 1100 / 1100 Output Total 500 / 500 1850 / 1850 700 / 700 Balance 600 / 600 -750 / -750 -700 / -700 Intake: IV Fluids 1100 / 1100 1100 / 1100 0.9 % Sodium Chloride 1,000 ML 1000 / 1000 1000 / 1000 @ 125 mls/hr IVC .Q8H ESTRELLA Rx#: [id number] Zosyn 3.375 GM In 0.9 % Sodium 100 / 100 100 / 100 Chloride (Mini-Bag +) 100 ML @ 25 mls/hr IVPB Q8H ESTRELLA Rx#: [id number] Oral 0 / 0 0 / 0 Output: Catheter 500 / 500 1350 / 1350 650 / 650 Gastric Drainage 500 / 500 50 / 50 Other: Meal NPO BREAKFAST Weight 159 kg Blood Glucose* 114 95 Patient Weight 05/10/18 23:59 Weight 159 kg - General physical appearance no distress - Respiratory normal expansion, normal respiratory effort - Cardiovascular Cardiovascular exam: Present: RRR - Abdomen Abdomen: Present: soft, tender (appropriately tender) - Incision Incision: Present: clean and dry, intact - Neurologic CN 2-12 grossly intact - Psychiatric oriented to time, oriented to person, oriented to place - Labs 05/10/18 08:28 05/10/18 08:28 Diabetes panel 05/09/18 05/10/18 Range/Units 14:22 08:28 Sodium 139 138 (136-145) mEq/L Potassium 4.0 3.7 (3.5-5.1) mEq/L Chloride 106 106 (98-107) mEq/L Carbon Dioxide 28 27 (23-29) mEq/L BUN 15 12 (6-20) mg/dL Creatinine 0.79 0.66 L (0.70-1.30) mg/dL Glucose 131 H 99 (70-105) mg/dL Calcium 7.8 L 8.1 L (8.6-10.3) mg/dL Calcium panel 05/09/18 05/10/18 Range/Units 14:22 08:28 Calcium 7.8 L 8.1 L (8.6-10.3) mg/dL Pituitary panel 05/09/18 05/10/18 Range/Units 14:22 08:28 Sodium 139 138 (136-145) mEq/L Potassium 4.0 3.7 (3.5-5.1) mEq/L Chloride 106 106 (98-107) mEq/L Carbon Dioxide 28 27 (23-29) mEq/L BUN 15 12 (6-20) mg/dL Creatinine 0.79 0.66 L (0.70-1.30) mg/dL Glucose 131 H 99 (70-105) mg/dL Calcium 7.8 L 8.1 L (8.6-10.3) mg/dL Adrenal panel 05/09/18 05/10/18 Range/Units 14:22 08:28 Sodium 139 138 (136-145) mEq/L Potassium 4.0 3.7 (3.5-5.1) mEq/L Chloride 106 106 (98-107) mEq/L Carbon Dioxide 28 27 (23-29) mEq/L BUN 15 12 (6-20) mg/dL Creatinine 0.79 0.66 L (0.70-1.30) mg/dL Glucose 131 H 99 (70-105) mg/dL Calcium 7.8 L 8.1 L (8.6-10.3) mg/dL Consult Discharge Plan - Plan Referrals: Keith Spann MD [Primary Care Provider] -
--- NOTE | 2018-05-10 17:05 | Internal Med Progress Note ---
Hospitalist Progress Note - Encounter Date of Encounter: 05/10/18 Time of Encounter: 17:02 - Subjective Interval History: Postop day 2. Lying comfortably on bed. Family at bedside. Complained of abdominal pain but better. Not passing flatus yet. Denies nausea vomiting He also denies fever chills chest pain shortness of breath. Urine culture with E scherichia coli sensitive to Zosyn. - Exam Vitals: Temp Pulse Resp BP Pulse Ox 98.6 F 88 16 166/90 91 05/10/18 14:29 05/10/18 14:29 05/10/18 14:29 05/10/18 14:29 05/10/18 14:29 Exam: General appearance: Mild distress due to pain, A&O X 3. Family at bedside, morbidly obese Head exam: Atraumatic Eye exam: EOMI, PERRLA ENT exam: Moist oral mucosa Neck nontender, supple Respiratory exam: Clear to auscultation bilaterally Cardiovascular exam: Regular rate and rhythm, no systolic murmur Abdominal exam: Diffuse tenderness but especially along the incision, slight, no bowel sounds Extremities exam: No calf tenderness Skin-no rash, warm, dry, intact Neurological exam: CN II-XII intact, no focal deficits. No facial droop. Normal speech. - Assessment and Plan (1) Small bowel obstruction Current Visit: Yes Status: Acute Assessment and Plan: Status post small bowel resection, reduction of internal hernia, adhesinolysis on 1123 2017. Postop day 2. Keep patient nothing by mouth, IV fluid, pain management continue antibiotic, strict I&O's , incentive spirometry. General surgeon on board. Continue DVT and GI prophylaxis. CT of the abdomen showed small bowel obstruction with fluid-filled loops of small bowel in the left mid abdomen with questionable tethering of the mesentery in the left mid abdomen with relative decompression of the distal small bowel with concerns for internal hernia versus closed loop obstruction. (2) UTI (urinary tract infection), bacterial Current Visit: Yes Status: Acute Assessment and Plan: Urine culture with Escherichia coli sensitive to Zosyn. Will continue Zosyn for now but will de-escalate eventually once patient improves clinically. Trending down white count but is still elevated (3) Diabetes Current Visit: Yes Status: Acute Assessment and Plan: Hold OHA. Accu-Chek, sliding scale insulin. Watch for hypoglycemia as patient is nothing by mouth (4) HTN (hypertension), benign Current Visit: Yes Status: Acute Assessment and Plan: Close monitoring. Continue antihypertensive medicine. (5) DVT prophylaxis Current Visit: Yes Status: Acute Assessment and Plan: Subcutaneous heparin - Time Spent with Patient Total time spent is greater than 50% in coordination of care (as documented) at patient's floor/unit and/or counseling patient: 25 - 35 minutes Plan of Care Discussed with: patient (Discuss plan of care with family, nursing staff and platform consultant) Internal Medicine: Result - Labs CBC & Chem 7: 05/10/18 08:28 05/10/18 08:28 Labs: Short CBC 05/10/18 Range/Units 08:28 WBC 14.3 H (4.3-11.1) K/mcL Hgb 13.1 D (12.9-16.9) g/dL Hct 38.1 (37.5-50.1) % Plt Count 218 (140-400) K/mcL Neutrophils # 11.6 H (1.6-8.9) K/mcL BMP 05/10/18 08:28 Sodium 138 Potassium 3.7 Chloride 106 Carbon Dioxide 27 BUN 12 Creatinine 0.66 L Glucose 99 Calcium 8.1 L - Impressions Impressions Abdomen/Pelvis CT 05/08/18 09:44 IMPRESSION: 1. Small bowel obstruction with fluid-filled loops of small bowel in the left midabdomen. There is questionable tethering of the mesentery in the left midabdomen with relative decompression of the distal small bowel. This raises the possibility of an internal hernia versus closed loop obstruction in the left midabdomen. 2. Indistinct 2.1 x 1.7 cm hypodensity in the right lower renal pole. Recommend CT or MR per renal mass protocol on a nonemergent basis for further evaluation. 3. Nonobstructing left nephrolithiasis. 4. Splenomegaly. 5. [id number] amount of free fluid in the right upper quadrant of the abdomen and in the pelvis. 6. Fat containing anterior abdominal wall hernia. Findings were discussed with Eber Khan at 10:40 am on 05/08/2018. D/ / 05/08/2018 10:51:22 Erlin Bautista MD / [email or web address] Interpreting Provider: Erlin Bautista MD Consult Discharge Plan - Plan Referrals: Keith Spann MD [Primary Care Provider] - _ (3) Diabetes Qualifiers: Chronic kidney disease stage: unspecified stage Qualified Code(s): E08.22 - Diabetes mellitus due to underlying condition with diabetic chronic kidney disease; Z79.4 - superintendent terminal (current) use of insulin
[2018-05-10] MEDS: Budesonide/Formoterol 160/4.5 1 PUFF INH IH SCH (20:38)
[2018-05-11] MEDS: *HR* HYDROmorphone 20 MG/20 ML PCA IVC PRN ×2 (00:22→18:21)
[2018-05-11] MEDS: 0.9 % Sodium Chloride 1,000 ML IVC SCH ×3 (03:58→20:20)
[2018-05-11] MEDS: *HR* Heparin 5,000 UNIT/ML VIAL SQ SCH ×2 (05:05→18:27)
[2018-05-11] MEDS: Insulin LISPRO 300 UNITS/3 ML VIAL SQ SCH ×3 (05:58→18:20)
[2018-05-11 06:50] LABS: Basophils % 0.2 %; Eosinophils # 0.2 K/mcL (0.0-0.6); Eosinophils % 1.4 %; Hemoglobin 13.4 g/dL (12.9-16.9); Immature Granulocytes % 0.5 % (0-4); Lymphocytes # 1.3 K/mcL (0.6-4.6); Lymphocytes % 7.9 %; Mean Corpuscular HGB Conc 35.3 g/dL (31.6-35.5); Mean Corpuscular Hemoglobin 34.3 pg (28.0-33.3); Mean Corpuscular Volume 97.2 fL (83.0-100.0); Mean Platelet Volume 8.7 fL (9.4-12.4); Monocytes # 0.9 K/mcL (0.0-1.3); Monocytes % 5.6 %; Neutrophils # 14.1 K/mcL (1.6-8.9); Platelet Count 310 K/mcL (140-400); Red Blood Count 3.91 M/mcL (4.19-5.50); Red Cell Distribution Width 12.2 % (11.5-14.5); Segmented Neutrophils % 84.4 %
[2018-05-11 06:59] LABS: BUN/Creatinine Ratio 17 (6-26); Blood Urea Nitrogen 11 mg/dL (6-20); Calcium 8.3 mg/dL (8.6-10.3); Carbon Dioxide 25 mEq/L (23-29); Chloride 102 mEq/L (98-107); Glucose 95 mg/dL (70-105); Osmolality,Calculated 281 (280-300); Potassium 3.5 mEq/L (3.5-5.1); Sodium 136 mEq/L (136-145); eGFR For Non-African Americans > 60 (> 60)
[2018-05-11] MEDS: Budesonide/Formoterol 160/4.5 1 PUFF INH IH SCH ×2 (07:30→20:24)
--- NOTE | 2018-05-11 08:47 | General Surgery Progress Note ---
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 NPO, IVF; will consider TPN on 05/12 if no bowel function today decrease IV to 100 OOBTC cont with PATRICIA dressing chemical dvt prophylaxis cont with abx f/u labs, replace lytes Subjective Patient reports: no new complaints, feels better, still having pain, pain is less, voiding w/o difficulty, no flatus (does have bowel sounds), afebrile Objective Vital Signs - Last 8 Hours Temp Pulse Resp BP Pulse Ox 05/11/18 06:41 98.3 F 94 18 173/91 91 05/11/18 04:08 98.5 F 81 18 123/72 92 Intake and Output 05/10/18 05/11/18 05/11/18 23:59 07:59 15:59 Intake Total 1100 / 1100 1100 / 1100 Output Total 375 / 375 350 / 350 Balance 725 / 725 750 / 750 Intake: IV Fluids 1100 / 1100 1100 / 1100 0.9 % Sodium Chloride 1,000 ML 1000 / 1000 1000 / 1000 @ 125 mls/hr IVC .Q8H ESTRELLA Rx#: [id number] Zosyn 3.375 GM In 0.9 % Sodium 100 / 100 100 / 100 Chloride (Mini-Bag +) 100 ML @ 25 mls/hr IVPB Q8H ESTRELLA Rx#: [id number] Oral 0 / 0 Output: Urine 375 / 375 0 / 0 Gastric Drainage 350 / 350 Other: Weight 156.9 kg Blood Glucose* 98 99 Patient Weight 05/11/18 23:59 Weight 156.9 kg - General physical appearance no distress - Respiratory normal expansion, normal respiratory effort - Cardiovascular Cardiovascular exam: Present: RRR - Abdomen Abdomen: Present: soft, tender (appropriately tender) - Neurologic CN 2-12 grossly intact - Musculoskeletal normal posture - Labs 05/11/18 06:04 05/11/18 06:04 Diabetes panel 05/10/18 05/11/18 Range/Units 08:28 06:04 Sodium 138 136 (136-145) mEq/L Potassium 3.7 3.5 (3.5-5.1) mEq/L Chloride 106 102 (98-107) mEq/L Carbon Dioxide 27 25 (23-29) mEq/L BUN 12 11 (6-20) mg/dL Creatinine 0.66 L 0.63 L (0.70-1.30) mg/dL Glucose 99 95 (70-105) mg/dL Calcium 8.1 L 8.3 L (8.6-10.3) mg/dL Calcium panel 05/10/18 05/11/18 Range/Units 08:28 06:04 Calcium 8.1 L 8.3 L (8.6-10.3) mg/dL Pituitary panel 05/10/18 05/11/18 Range/Units 08:28 06:04 Sodium 138 136 (136-145) mEq/L Potassium 3.7 3.5 (3.5-5.1) mEq/L Chloride 106 102 (98-107) mEq/L Carbon Dioxide 27 25 (23-29) mEq/L BUN 12 11 (6-20) mg/dL Creatinine 0.66 L 0.63 L (0.70-1.30) mg/dL Glucose 99 95 (70-105) mg/dL Calcium 8.1 L 8.3 L (8.6-10.3) mg/dL Adrenal panel 05/10/18 05/11/18 Range/Units 08:28 06:04 Sodium 138 136 (136-145) mEq/L Potassium 3.7 3.5 (3.5-5.1) mEq/L Chloride 106 102 (98-107) mEq/L Carbon Dioxide 27 25 (23-29) mEq/L BUN 12 11 (6-20) mg/dL Creatinine 0.66 L 0.63 L (0.70-1.30) mg/dL Glucose 99 95 (70-105) mg/dL Calcium 8.1 L 8.3 L (8.6-10.3) mg/dL Consult Discharge Plan - Plan Referrals: Keith Spann MD [Primary Care Provider] -
[2018-05-11] MEDS: Pantoprazole 40 MG VIAL IVP SCH (08:49)
[2018-05-11] MEDS: Piperacillin/Tazobactam 3.375 GM in 0.9 % Sodium Chloride Mini Bag 100 ML IVPB SCH ×2 (08:49→16:10)
[2018-05-11] MEDS: Ipratropium/Albuterol Neb 3 ML IH SCH ×4 (10:58→23:51)
--- NOTE | 2018-05-11 15:32 | Internal Med Progress Note ---
Hospitalist Progress Note - Encounter Date of Encounter: 05/11/18 Time of Encounter: 15:30 - Subjective Interval History: Postop day 3. Lying comfortably on bed. Still complained of abdominal pain but better. Not passing flatus yet. Denies fever chills nausea vomiting chest pain shortness of breath. Urine culture with Escherichia coli sensitive to Zosyn. - Exam Vitals: Temp Pulse Resp BP Pulse Ox 98.1 F 76 22 130/78 93 05/11/18 10:13 05/11/18 10:13 05/11/18 10:58 05/11/18 10:13 05/11/18 10:58 Exam: General appearance: Mild distress due to pain, A&O X 3. Family at bedside, morbidly obese Head exam: Atraumatic Eye exam: EOMI, PERRLA ENT exam: Moist oral mucosa Neck nontender, supple Respiratory exam: Slight diminished breath sound at the base bilaterally-could be due to body habitus as well Cardiovascular exam: Regular rate and rhythm, no systolic murmur Abdominal exam: Diffuse tenderness but especially along the incision, slight, no bowel sounds Extremities exam: No calf tenderness Skin-no rash, warm, dry, intact Neurological exam: CN II-XII intact, no focal deficits. No facial droop. Normal speech. - Assessment and Plan (1) Small bowel obstruction Current Visit: Yes Status: Acute Assessment and Plan: Status post small bowel resection, reduction of internal hernia, adhesinolysis on 1123 2017. Keep patient nothing by mouth, IV fluid, pain management continue antibiotic, strict I&O's , incentive spirometry. General surgeon on board. Continue DVT and GI prophylaxis. Slight raise in white count but no fever-could be due to atelectasis. Nasal swab for MRSA done if is positive will add vancomycin otherwise continue to monitor. CT of the abdomen showed small bowel obstruction with fluid-filled loops of sma ll bowel in the left mid abdomen with questionable tethering of the mesentery in the left mid abdomen with relative decompression of the distal small bowel with concerns for internal hernia versus closed loop obstruction. (2) UTI (urinary tract infection), bacterial Current Visit: Yes Status: Acute Assessment and Plan: Urine culture with Escherichia coli sensitive to Zosyn. Will continue Zosyn for now but will de-escalate eventually once patient improves clinically. Sterile high white count (3) Diabetes Current Visit: Yes Status: Acute Assessment and Plan: Hold OHA. Accu-Chek, sliding scale insulin. Watch for hypoglycemia as patient is nothing by mouth (4) HTN (hypertension), benign Current Visit: Yes Status: Acute Assessment and Plan: Close monitoring. Continue antihypertensive medicine. (5) DVT prophylaxis Current Visit: Yes Status: Acute Assessment and Plan: Subcutaneous heparin - Time Spent with Patient Total time spent is greater than 50% in coordination of care (as documented) at patient's floor/unit and/or counseling patient: 25 - 35 minutes Plan of Care Discussed with: patient Internal Medicine: Result - Labs CBC & Chem 7: 05/11/18 06:04 05/11/18 06:04 Labs: Short CBC 05/11/18 Range/Units 06:04 WBC 16.8 H (4.3-11.1) K/mcL Hgb 13.4 (12.9-16.9) g/dL Hct 38.0 (37.5-50.1) % Plt Count 310 (140-400) K/mcL Neutrophils # 14.1 H (1.6-8.9) K/mcL BMP 05/11/18 06:04 Sodium 136 Potassium 3.5 Chloride 102 Carbon Dioxide 25 BUN 11 Creatinine 0.63 L Glucose 95 Calcium 8.3 L Consult Discharge Plan - Plan Referrals: Keith Spann MD [Primary Care Provider] - (3) Diabetes Qualifiers: Chronic kidney disease stage: unspecified stage Qualified Code(s): E08.22 - Diabetes mellitus due to underlying condition with diabetic chronic kidney disease; Z79.4 - alf (current) use of insulin
[2018-05-11] MEDS: *HR* Metoprolol 5 MG/5 ML VIAL IVP SCH (18:27)
[2018-05-12] MEDS: Insulin LISPRO 300 UNITS/3 ML VIAL SQ SCH ×2 (00:42→05:44)
[2018-05-12] MEDS: *HR* Metoprolol 5 MG/5 ML VIAL IVP SCH ×4 (00:53→18:36)
[2018-05-12] MEDS: Piperacillin/Tazobactam 3.375 GM in 0.9 % Sodium Chloride Mini Bag 100 ML IVPB SCH ×3 (00:53→16:07)
[2018-05-12] MEDS: Ipratropium/Albuterol Neb 3 ML IH SCH ×5 (04:14→20:28)
[2018-05-12] MEDS: 0.9 % Sodium Chloride 1,000 ML IVC SCH ×2 (04:44→13:38)
[2018-05-12] MEDS: *HR* Heparin 5,000 UNIT/ML VIAL SQ SCH ×2 (05:50→18:36)
[2018-05-12] MEDS: Budesonide/Formoterol 160/4.5 1 PUFF INH IH SCH ×2 (07:35→20:28)
[2018-05-12] MEDS: Pantoprazole 40 MG VIAL IVP SCH (08:16)
--- NOTE | 2018-05-12 09:04 | General Surgery Progress Note ---
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 toileting NPO; start TPN today KUB to assess NG tube placement decrease IV to 100 OOBTC Take down dressing today chemical dvt prophylaxis cont with abx f/u labs, replace lytes Subjective Patient reports: no new complaints, feels better, still having pain, pain is less, no flatus, afebrile Objective Vital Signs - Last 8 Hours Temp Pulse Resp BP Pulse Ox 05/12/18 07:37 18 94 05/12/18 04:14 18 93 05/12/18 03:30 99.3 F 77 16 116/61 95 Intake and Output 05/11/18 05/12/18 05/12/18 23:59 07:59 15:59 Intake Total 1160 / 1160 1100 / 1100 Output Total 600 / 600 0 / 0 Balance 560 / 560 1100 / 1100 Intake: IV Fluids 1100 / 1100 1100 / 1100 0.9 % Sodium Chloride 1,000 ML 1000 / 1000 1000 / 1000 @ 125 mls/hr IVC .Q8H ESTRELLA Rx#: [id number] Zosyn 3.375 GM In 0.9 % Sodium 100 / 100 100 / 100 Chloride (Mini-Bag +) 100 ML @ 25 mls/hr IVPB Q8H ESTRELLA Rx#: [id number] Oral 60 / 60 0 / 0 Output: Urine 600 / 600 0 / 0 Other: Meal Dinner NPO Percent of Meal Consumed 0% # Bowel Movements 0 0 Weight 157.1 kg Blood Glucose* 98 122 Patient Weight 05/12/18 23:59 Weight 157.1 kg - General physical appearance no distress - Respiratory normal expansion, normal respiratory effort - Cardiovascular Cardiovascular exam: Present: RRR - Abdomen Abdomen: Present: soft, tender (appropriately tender; non peritoneal) - Incision Incision: Present: clean and dry, intact - Neurologic CN 2-12 grossly intact - Psychiatric oriented to time, oriented to person, oriented to place - Labs 05/11/18 06:04 05/11/18 06:04 Consult Discharge Plan - Plan Referrals: Keith Spann MD [Primary Care Provider] -
[2018-05-12] MEDS ORDERED: Lidocaine -MPF 1% 5 ML AMPUL INFILT ONE (12:36)
[2018-05-12] MEDS: *HR* HYDROmorphone 20 MG/20 ML PCA IVC PRN (12:44)
[2018-05-12 13:20] LABS: Basophils % 0.2 %; Eosinophils # 0.2 K/mcL (0.0-0.6); Eosinophils % 1.9 %; Hematocrit 35.3 % (37.5-50.1); Hemoglobin 12.1 g/dL (12.9-16.9); Immature Granulocytes % 0.5 % (0-4); Lymphocytes # 1.1 K/mcL (0.6-4.6); Mean Corpuscular HGB Conc 34.3 g/dL (31.6-35.5); Mean Corpuscular Hemoglobin 34.2 pg (28.0-33.3); Mean Corpuscular Volume 99.7 fL (83.0-100.0); Mean Platelet Volume 8.9 fL (9.4-12.4); Monocytes # 0.7 K/mcL (0.0-1.3); Monocytes % 6.1 %; Platelet Count 250 K/mcL (140-400); Red Blood Count 3.54 M/mcL (4.19-5.50); Red Cell Distribution Width 12.3 % (11.5-14.5); Segmented Neutrophils % 81.3 %
[2018-05-12] MEDS ORDERED: D10% in Water 500 ML IVC PRN (13:27)
[2018-05-12 14:51] LABS: BUN/Creatinine Ratio 17 (6-26); Blood Urea Nitrogen 8 mg/dL (6-20); Carbon Dioxide 29 mEq/L (23-29); Chloride 105 mEq/L (98-107); Glucose 112 mg/dL (70-105); Osmolality,Calculated 287 (280-300); Potassium 3.8 mEq/L (3.5-5.1); Sodium 139 mEq/L (136-145); eGFR For Non-African Americans > 60 (> 60)
[2018-05-12] MEDS ORDERED: Clinimix E 5%-15% SOLUTION 2,000 ML with MVI, adult with vitamin K 10 ML IVC SCH (17:00)
--- NOTE | 2018-05-12 17:54 | Internal Med Progress Note ---
Hospitalist Progress Note - Encounter Date of Encounter: 05/12/18 Time of Encounter: 17:48 - Subjective Interval History: Postop day 4. Sitting on chair with the help of physiotherapist. complained of abdominal pain but better. Not passing flatus yet. Denies fever chills nausea vomiting chest pain shortness of breath. Review the lab with normal white count. Urine culture with Escherichia coli sensitive to Zosyn. - Exam Vitals: Temp Pulse Resp BP Pulse Ox 98.7 F 78 15 133/81 93 05/12/18 14:59 05/12/18 14:59 05/12/18 15:48 05/12/18 14:59 05/12/18 15:48 Exam: General appearance: Mild distress due to pain, A&O X 3. no Family at bedside, morbidly obese Head exam: Atraumatic Eye exam: EOMI, PERRLA ENT exam: Moist oral mucosa Neck nontender, supple Respiratory exam: Slight diminished breath sound at the base bilaterally-could be due to body habitus as well Cardiovascular exam: Regular rate and rhythm, no systolic murmur Abdominal exam: Diffuse tenderness but especially along the incision, slight, no bowel sounds Extremities exam: No calf tenderness Skin- warm, dry, intact Neurological exam: CN II-XII intact, no focal deficits. No facial droop. Normal speech. - Assessment and Plan (1) Small bowel obstruction Current Visit: Yes Status: Acute Assessment and Plan: Status post small bowel resection, reduction of internal hernia, adhesinolysis on 2017. Keep patient nothing by mouth, IV fluid total 100 mL per hour, pain management continue antibiotic Zosyn, strict I&O's , incentive spirometry. General surgeon on board and is started on TPN on 05/12. Continue DVT and GI prophylaxis. PT OT on board and recommended for inpatient rehabilitation upon discharge. Normal white count. Nasal swab for MRSA negative. CT of the abdomen showed small bowel obstruction with fluid-filled loops of small bowel in the left mid abdomen with questionable tethering of the mesentery in the left mid abdomen with relative decompression of the distal small bowel with concerns for internal hernia versus closed loop obstruction. Plan for discharge as per surgery advice (2) UTI (urinary tract infection), bacterial Current Visit: Yes Status: Acute Assessment and Plan: Urine culture with Escherichia coli sensitive to Zosyn. Will continue Zosyn for now but will de-escalate eventually once patient improves clinically. (3) Diabetes Current Visit: Yes Status: Acute Assessment and Plan: Hold OHA. Accu-Chek, sliding scale insulin. Watch for hypoglycemia . Continue TPN (4) HTN (hypertension), benign Current Visit: Yes Status: Acute Assessment and Plan: Close monitoring. Continue antihypertensive medicine. (5) DVT prophylaxis Current Visit: Yes Status: Acute Assessment and Plan: Subcutaneous heparin - Time Spent with Patient Total time spent is greater than 50% in coordination of care (as documented) at patient's floor/unit and/or counseling patient: 25 - 35 minutes Plan of Care Discussed with: patient (Discuss plan of care with nursing his staff and case management and mining consultant) Internal Medicine: Result - Labs CBC & Chem 7: 05/12/18 07:54 05/12/18 13:28 Labs: Short CBC 05/12/18 Range/Units 07:54 WBC 11.1 (4.3-11.1) K/mcL Hgb 12.1 L (12.9-16.9) g/dL Hct 35.3 L (37.5-50.1) % Plt Count 250 (140-400) K/mcL Neutrophils # 9.0 H (1.6-8.9) K/mcL BMP 05/12/18 13:28 Sodium 139 Potassium 3.8 Chloride 105 Carbon Dioxide 29 BUN 8 Creatinine 0.48 L Glucose 112 H Calcium 8.0 L - Impressions Impressions Chest X-Ray 05/12/18 09:05 IMPRESSION: Nasogastric tube terminates in the distal thoracic esophagus. Recommend advancement. Cardiomegaly with vascular congestion and left basilar atelectasis. D/ / William Best MD / William Best MD Interpreting Provider: William Best MD X-Ray 05/12/18 15:19 IMPRESSION: Gastric drain terminates in the gastric body. D/ / Deepak Jewell MD / Deepak Jewell MD Interpreting Provider: Deepak Jewell MD Consult Discharge Plan - Plan Referrals: Keith Spann MD [Primary Care Provider] - _ (3) Diabetes Qualifiers: Diabetes mellitus type: type 2 Diabetes mellitus longterm insulin use: without longterm use Chronic kidney disease stage: unspecified stage Qualified Code(s): E11.22 - Type 2 diabetes mellitus with diabetic chronic kidney disease
[2018-05-13] MEDS: Ipratropium/Albuterol Neb 3 ML IH SCH ×7 (00:06→23:37)
[2018-05-13] MEDS: Insulin LISPRO 300 UNITS/3 ML VIAL SQ SCH ×6 (00:14→20:15)
[2018-05-13] MEDS: 0.9 % Sodium Chloride 1,000 ML IVC SCH ×5 (00:16→18:14)
[2018-05-13] MEDS: *HR* Metoprolol 5 MG/5 ML VIAL IVP SCH ×4 (00:17→18:05)
[2018-05-13] MEDS: Piperacillin/Tazobactam 3.375 GM in 0.9 % Sodium Chloride Mini Bag 100 ML IVPB SCH ×3 (00:18→16:32)
[2018-05-13] MEDS: *HR* HYDROmorphone 20 MG/20 ML PCA IVC PRN (03:46)
[2018-05-13 04:36] LABS: BUN/Creatinine Ratio 14 (6-26); Blood Urea Nitrogen 7 mg/dL (6-20); Calcium 8.3 mg/dL (8.6-10.3); Carbon Dioxide 30 mEq/L (23-29); Chloride 104 mEq/L (98-107); Glucose 146 mg/dL (70-105); Magnesium 1.8 mg/dL (1.6-2.6); Osmolality,Calculated 289 (280-300); Phosphorous 2.4 mg/dL (2.7-4.5); Potassium 3.3 mEq/L (3.5-5.1); Sodium 139 mEq/L (136-145); Triglycerides 139 mg/dL (< 150); eGFR For Non-African Americans > 60 (> 60)
[2018-05-13] MEDS: *HR* Heparin 5,000 UNIT/ML VIAL SQ SCH ×2 (05:40→18:04)
[2018-05-13] MEDS: Budesonide/Formoterol 160/4.5 1 PUFF INH IH SCH ×2 (07:44→20:30)
[2018-05-13] MEDS: Pantoprazole 40 MG VIAL IVP SCH (08:08)
[2018-05-13] MEDS ORDERED: OXYCODONE Oral CONC 10 MG/0.5 ML ORAL.SYG SL PRN (09:06)
--- NOTE | 2018-05-13 09:10 | General Surgery Progress Note ---
<CelestinoAmelia Dewey - Last Filed: 05/13/18 13:30> Date of Encounter: 05/13/18 Time of Encounter: 09:00 - Assessment and Plan (1) Small bowel obstruction Current Visit: Yes Status: Acute Date of procedure: 05/08/18 Pre-op diagnosis: small bowel obstruction 2/2 internal hernia Post-op diagnosis: same Procedure: exploratory laparotomy lysis of adhesions x 60min reduction of internal hernia small bowel resection with stapled anastamosis Closure of the mesenteric defect with a running 2-0 PDS suture POD #5 as above. Pt is requiring extensive encouragement to participate in his own care. PT/Ot have been ordered. He is getting OOB but has not ambulated halls. He does attempt to dictate care often. I did review extensively with him the need for participation in care, ambulation, IS, and the benefits/risks of these. Pt states he will attempt to participate. LArge amount of NBG output and although pt was ordered small amount of ice chips only, bedside RN reports he was caught several times drinking fluids. Plan: NG to wilson bag 1/2 small cup ice chips Q8H Stop [employer] [employer] [employer] Add SL oxycodone (pt's home dose) scheduled and for breakthrough pain Add scheduled ofirmerv and alternate Toradol pt advised he MUST ambulate the halls today Replace potassium Continue GI and DVT prophylaxis Continue PT/OT Total IVF per primary team. 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 use: without residential use Diabetes mellitus complication status: with unspecified complications Qualified Code(s): E11.8 - Type 2 diabetes mellitus with unspecified complications (4) HTN (hypertension), benign Current Visit: Yes Status: Acute per primary team (5) DVT prophylaxis Current Visit: Yes Status: Acute He is without EPCDs upon my assessment.Pt states they have been on that he "just took a break." He is encouraged to use EPCDs when in bed and in chair Subjective Patient reports: no new complaints, feels better, still having pain, pain is less, voiding w/o difficulty, flatus, no bowel movement, afebrile Objective Vital Signs - Last 8 Hours Temp Pulse Resp BP Pulse Ox 05/13/18 08:50 96 05/13/18 08:00 98.8 F 69 18 124/84 96 05/13/18 04:53 98.0 F 70 18 134/54 93 05/13/18 04:18 18 95 Intake and Output 05/12/18 05/13/18 05/13/18 23:59 07:59 15:59 Intake Total 600 / 600 400 / 400 1663 / 1663 Output Total 1450 / 1450 375 / 375 0 / 0 Balance -850 / -850 25 / 25 1663 / 1663 Intake: IV Fluids 600 / 600 350 / 350 1663 / 1663 0.9 % Sodium Chloride 1,000 ML 500 / 500 630 / 630 @ 100 mls/hr IVC .Q10H [facility] Rx#: [id number] Clinimix E 5%-15% SOLUTION 2, 1033 / 1033 000 ML @ 50 mls/hr IVC .Q24H [facility] with M.v.i. Adult 10 ml Rx# :[id number] Intralipid 20% 250 ML @ 21 mls/ 250 / 250 hr IVPB DAILY@1700 [facility] Rx#: [id number] Zosyn 3.375 GM In 0.9 % Sodium 100 / 100 100 / 100 Chloride (Mini-Bag +) 100 ML @ 25 mls/hr IVPB Q8H [facility] Rx#: [id number] Oral 0 / 0 50 / 50 Output: Urine 450 / 450 375 / 375 0 / 0 Gastric Drainage 1000 / 1000 Other: Weight 157 kg Blood Glucose* 131 132 Patient Weight 05/13/18 23:59 Weight 157 kg - General physical appearance no distress, moderate pain - Eyes normal ocular movement - ENT normal nares (NG secured), atraumatic, normocephalic - Neck Neck exam: trachea midline - Respiratory other (decreased breath sounds) - Cardiovascular Cardiovascular exam: Present: distant heart sounds - Abdomen Abdomen: Present: bowel sounds present, soft, tender, wound - Incision Incision: Present: clean and dry, intact - Integumentary no abnormal pigmentation - Neurologic normal coordination, normal sensation - Musculoskeletal normal posture, other (Reluctant to participate with PT/OT) - Psychiatric oriented to time, oriented to person, oriented to place, speech is normal, memory intact - Labs 05/13/18 09:30 05/13/18 04:01 Diabetes panel 05/12/18 05/13/18 Range/Units 13:28 04:01 Sodium 139 139 (136-145) mEq/L Potassium 3.8 3.3 L (3.5-5.1) mEq/L Chloride 105 104 (98-107) mEq/L Carbon Dioxide 29 30 H (23-29) mEq/L BUN 8 7 (6-20) mg/dL Creatinine 0.48 L 0.50 L (0.70-1.30) mg/dL Glucose 112 H 146 H (70-105) mg/dL Calcium 8.0 L 8.3 L (8.6-10.3) mg/dL Triglycerides 139 (< 150) mg/dL Calcium panel 05/12/18 05/13/18 Range/Units 13:28 04:01 Calcium 8.0 L 8.3 L (8.6-10.3) mg/dL Phosphorus 2.4 L (2.7-4.5) mg/dL Pituitary panel 05/12/18 05/13/18 Range/Units 13:28 04:01 Sodium 139 139 (136-145) mEq/L Potassium 3.8 3.3 L (3.5-5.1) mEq/L Chloride 105 104 (98-107) mEq/L Carbon Dioxide 29 30 H (23-29) mEq/L BUN 8 7 (6-20) mg/dL Creatinine 0.48 L 0.50 L (0.70-1.30) mg/dL Glucose 112 H 146 H (70-105) mg/dL Calcium 8.0 L 8.3 L (8.6-10.3) mg/dL Adrenal panel 05/12/18 05/13/18 Range/Units 13:28 04:01 Sodium 139 139 (136-145) mEq/L Potassium 3.8 3.3 L (3.5-5.1) mEq/L Chloride 105 104 (98-107) mEq/L Carbon Dioxide 29 30 H (23-29) mEq/L BUN 8 7 (6-20) mg/dL Creatinine 0.48 L 0.50 L (0.70-1.30) mg/dL Glucose 112 H 146 H (70-105) mg/dL Calcium 8.0 L 8.3 L (8.6-10.3) mg/dL Consult Discharge Plan - Plan Referrals: Keith Spann MD [Primary Care Provider] - <Giles Palmer - Last Filed: 05/13/18 20:25> Date of Encounter: 05/13/18 - Assessment and Plan (1) Small bowel obstruction Current Visit: Yes Status: Acute Objective Vital Signs - Last 8 Hours Temp Pulse Resp BP Pulse Ox 05/13/18 19:07 98.3 F 61 16 145/72 90 05/13/18 17:00 98.2 F 62 18 123/75 100 05/13/18 16:02 17 100 05/13/18 13:01 98.0 F 76 18 154/85 100 Intake and Output 05/13/18 05/13/18 05/13/18 07:59 15:59 23:59 Intake Total 400 / 400 3063 / 3063 1030 / 1030 Output Total 375 / 375 1725 / 1725 25 / 25 Balance 25 / 25 1338 / 1338 1005 / 1005 Intake: IV Fluids 350 / 350 3063 / 3063 1030 / 1030 0.9 % Sodium Chloride 1,000 ML 1280 / 1280 350 / 350 @ 50 mls/hr IVC .Q20H [facility] Rx#: [id number] Clinimix E 5%-15% SOLUTION 2, 1183 / 1183 320 / 320 000 ML @ 50 mls/hr IVC .Q24H [facility] with M.v.i. Adult 10 ml Rx# :[id number] Ofirmev 1,000 mg/100 ml 1,000 100 / 100 100 / 100 mg In 100 ml @ 400 mls/hr IVPB Q6HR [facility] Rx#:[id number] Intralipid 20% 250 ML @ 21 mls/ 250 / 250 hr IVPB DAILY@1700 [facility] Rx#: [id number] Zosyn 3.375 GM In 0.9 % Sodium 100 / 100 100 / 100 Chloride (Mini-Bag +) 100 ML @ 25 mls/hr IVPB Q8H [facility] Rx#: [id number] Potassium Chloride 10 mEq/100mL 400 / 400 10 meq In 100 ml @ 100 mls/hr IVPB Q1H [facility] Rx#:[id number] Potassium Phosphate 44 MEQ In 0 260 / 260 .9 % Sodium Chloride 250 ML @ 40 mls/hr IVPB ONCE ONE Rx#: [id number] Oral 50 / 50 0 / 0 0 / 0 Output: Urine 375 / 375 400 / 400 0 / 0 Gastric Drainage 1325 / 1325 25 / Other: Meal npo Dinner NPO Percent of Meal Consumed 0% 0% # Bowel Movements 0 Weight 157 kg Blood Glucose* 132 123 Patient Weight 05/13/18 23:59 Weight 157 kg - Labs 05/13/18 09:30 05/13/18 04:01 Diabetes panel 05/13/18 Range/Units 04:01 Sodium 139 (136-145) mEq/L Potassium 3.3 L (3.5-5.1) mEq/L Chloride 104 (98-107) mEq/L Carbon Dioxide 30 H (23-29) mEq/L BUN 7 (6-20) mg/dL Creatinine 0.50 L (0.70-1.30) mg/dL Glucose 146 H (70-105) mg/dL Calcium 8.3 L (8.6-10.3) mg/dL Triglycerides 139 (< 150) mg/dL Calcium panel 05/13/18 Range/Units 04:01 Calcium 8.3 L (8.6-10.3) mg/dL Phosphorus 2.4 L (2.7-4.5) mg/dL Pituitary panel 05/13/18 Range/Units 04:01 Sodium 139 (136-145) mEq/L Potassium 3.3 L (3.5-5.1) mEq/L Chloride 104 (98-107) mEq/L Carbon Dioxide 30 H (23-29) mEq/L BUN 7 (6-20) mg/dL Creatinine 0.50 L (0.70-1.30) mg/dL Glucose 146 H (70-105) mg/dL Calcium 8.3 L (8.6-10.3) mg/dL Adrenal panel 05/13/18 Range/Units 04:01 Sodium 139 (136-145) mEq/L Potassium 3.3 L (3.5-5.1) mEq/L Chloride 104 (98-107) mEq/L Carbon Dioxide 30 H (23-29) mEq/L BUN 7 (6-20) mg/dL Creatinine 0.50 L (0.70-1.30) mg/dL Glucose 146 H (70-105) mg/dL Calcium 8.3 L (8.6-10.3) mg/dL - Attending Attestation patient seen and examined. I have reviewed all labs, imaging, and notes. I agree with the above assessment and plan and wish to add the following... still with high NG tube output; informed that patient is actively drinking water from faucet despite being NPO; inaccurate NG output, but there is no bowel function; keep NG to suction overnight clamp in AM cont to wait return of bowel function replace lytes activity as tolerated: must ambulate today
[2018-05-13 09:51] LABS: Basophils % 0.2 %; Eosinophils # 0.2 K/mcL (0.0-0.6); Eosinophils % 2.8 %; Hematocrit 33.3 % (37.5-50.1); Hemoglobin 11.1 g/dL (12.9-16.9); Immature Granulocytes % 0.6 % (0-4); Lymphocytes # 0.9 K/mcL (0.6-4.6); Lymphocytes % 10.1 %; Mean Corpuscular HGB Conc 33.3 g/dL (31.6-35.5); Mean Corpuscular Hemoglobin 33.6 pg (28.0-33.3); Mean Corpuscular Volume 100.9 fL (83.0-100.0); Mean Platelet Volume 8.8 fL (9.4-12.4); Monocytes # 0.6 K/mcL (0.0-1.3); Monocytes % 7.4 %; Neutrophils # 6.8 K/mcL (1.6-8.9); Platelet Count 194 K/mcL (140-400); Red Cell Distribution Width 12.5 % (11.5-14.5); Segmented Neutrophils % 78.9 %
--- NOTE | 2018-05-13 10:00 | Internal Med Progress Note ---
Hospitalist Progress Note - Encounter Date of Encounter: 05/13/18 Time of Encounter: 09:58 - Subjective Interval History: Seen and evaluated at the bedside with family He is still on dilaudid infusion, on TPN, antibiotics, no BM as yet, not passing flatus, pain is controlled He is complaining of fatigue from PT he also has a complicated UTI from E.coli, pansensitive, today is day 6 of Zosyn VSS, Hypokalemia on labs, will replace - Exam Vitals: Temp Pulse Resp BP Pulse Ox 98.8 F 69 18 124/84 96 05/13/18 08:00 05/13/18 08:00 05/13/18 08:00 05/13/18 08:00 05/13/18 08:50 Exam: General appearance: Not in any distress, morbidly obese Head exam: Atraumatic Eye exam: EOMI, PERRLA ENT exam: Moist oral mucosa Neck:normal inspection Respiratory exam: Slight diminished breath sound at the base bilaterally-could be due to body habitus as well Cardiovascular exam: S1, S2 only, RRR, No m/g/r Abdomen: Very mild and vague tenderness but especially along the incision, slight, no bowel sounds Extremities exam: No calf tenderness, no edema Skin- warm, dry, intact Neurological exam: AAOX3 CN II-XII intact, no focal deficits. No facial droop. Normal speech. - Assessment and Plan (1) Small bowel obstruction Current Visit: Yes Status: Acute Assessment and Plan: Status post small bowel resection, reduction of internal hernia, adhesinolysis on 2017. POD 5, Remains NPO, BS is absent Continue IV fluid total 100 mL per hour, pain management continue antibiotic Zosyn, strict I&O's , incentive spirometry. Continue TPN, has hypophosphatemia, will resume Continue DVT and GI prophylaxis. PT OT on board and recommended for inpatient rehabilitation upon discharge-per SW, patient is refusing at this time Continue PT, OOB to chair, ambulate prn Other management/wound care per surgery (2) Diabetes Current Visit: Yes Status: Chronic Assessment and Plan: Continue FS Q4-Q6 Sliding scale insulin Goal FS 140-180, currently acceptable (3) HTN (hypertension), benign Current Visit: Yes Status: Chronic Assessment and Plan: Close monitoring. Continue antihypertensive medicine. (4) DVT prophylaxis Current Visit: Yes Status: Acute Assessment and Plan: Subcutaneous heparin (5) UTI (urinary tract infection), bacterial Current Visit: Yes Status: Acute Assessment and Plan: Urine culture with Escherichia coli sensitive to Zosyn. Will continue Zosyn for now but will de-escalate eventually once patient improves clinically. DVT Prophylaxis: SQ heparin - Time Spent with Patient Total time spent is greater than 50% in coordination of care (as documented) at patient's floor/unit and/or counseling patient: Internal Medicine: Result - Labs CBC & Chem 7: 05/13/18 09:30 05/13/18 04:01 Labs: Short CBC 05/12/18 05/13/18 Range/Units 07:54 09:30 WBC 11.1 8.6 (4.3-11.1) K/mcL Hgb 12.1 L 11.1 L (12.9-16.9) g/dL Hct 35.3 L 33.3 L (37.5-50.1) % Plt Count 250 194 (140-400) K/mcL Neutrophils # 9.0 H 6.8 (1.6-8.9) K/mcL BMP 05/12/18 05/13/18 13:28 04:01 Sodium 139 139 Potassium 3.8 3.3 L Chloride 105 104 Carbon Dioxide 29 30 H BUN 8 7 Creatinine 0.48 L 0.50 L Glucose 112 H 146 H Calcium 8.0 L 8.3 L - Impressions Impressions Chest X-Ray 05/12/18 09:05 IMPRESSION: Nasogastric tube terminates in the distal thoracic esophagus. Recommend advancement. Cardiomegaly with vascular congestion and left basilar atelectasis. D/ / William Best MD / William Best MD Interpreting Provider: William Best MD X-Ray 05/12/18 15:19 IMPRESSION: Gastric drain terminates in the gastric body. D/ / Deepak Jewell MD / Deepak Jewell MD Interpreting Provider: Deepak Jewell MD X-Ray 05/13/18 08:26 IMPRESSION: The nasogastric tube side port is seen at the level of the GE junction, with the catheter tip in the proximal gastric body. Consider advancement. 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
[2018-05-13] MEDS: Ketorolac 15 MG/ML VIAL IVP SCH ×3 (10:03→18:07)
[2018-05-13] MEDS: OXYCODONE Oral CONC 10 MG/0.5 ML ORAL.SYG SL SCH ×2 (10:04→16:27)
[2018-05-13] MEDS ORDERED: Potassium Phosphate 44 MEQ in 0.9 % Sodium Chloride 250 ML IVPB ONE (10:07)
[2018-05-13] MEDS: Acetaminophen IV 1,000 MG/100 ML INFUS..BTL IVPB SCH ×2 (12:00→18:01)
[2018-05-13] MEDS ORDERED: Clinimix E 5%-15% SOLUTION 2,000 ML with MVI, adult with vitamin K 10 ML IVC SCH (17:00)
[2018-05-13] MEDS: Metoclopramide 10 MG/2 ML VIAL IVP SCH (18:06)
[2018-05-14] MEDS: OXYCODONE Oral CONC 10 MG/0.5 ML ORAL.SYG SL SCH ×3 (00:11→16:21)
[2018-05-14] MEDS: Acetaminophen IV 1,000 MG/100 ML INFUS..BTL IVPB SCH ×4 (00:13→18:09)
[2018-05-14] MEDS: Ketorolac 15 MG/ML VIAL IVP SCH ×4 (00:13→18:02)
[2018-05-14] MEDS: *HR* Metoprolol 5 MG/5 ML VIAL IVP SCH ×2 (00:13→06:11)
[2018-05-14] MEDS: Metoclopramide 10 MG/2 ML VIAL IVP SCH ×4 (00:13→18:02)
[2018-05-14] MEDS: Piperacillin/Tazobactam 3.375 GM in 0.9 % Sodium Chloride Mini Bag 100 ML IVPB SCH (00:49)
[2018-05-14] MEDS: Insulin LISPRO 300 UNITS/3 ML VIAL SQ SCH ×6 (00:49→21:28)
[2018-05-14] MEDS: Ipratropium/Albuterol Neb 3 ML IH SCH ×6 (03:51→23:16)
[2018-05-14 04:53] LABS: Basophils % 0.4 %; Eosinophils # 0.3 K/mcL (0.0-0.6); Hematocrit 36.3 % (37.5-50.1); Immature Granulocytes % 1.6 % (0-4); Lymphocytes # 1.3 K/mcL (0.6-4.6); Lymphocytes % 13.8 %; Mean Corpuscular Volume 97.3 fL (83.0-100.0); Mean Platelet Volume 9.2 fL (9.4-12.4); Monocytes # 0.6 K/mcL (0.0-1.3); Neutrophils # 6.9 K/mcL (1.6-8.9); Nucleated Red Blood Cells 0.5 /100 WBC (0); Platelet Count 213 K/mcL (140-400); Red Blood Count 3.73 M/mcL (4.19-5.50); Segmented Neutrophils % 75.2 %
[2018-05-14 05:18] LABS: Hemoglobin 12.7 g/dL (12.9-16.9)
[2018-05-14 06:19] LABS: BUN/Creatinine Ratio 17 (6-26); Blood Urea Nitrogen 9 mg/dL (6-20); Calcium 8.4 mg/dL (8.6-10.3); Carbon Dioxide 29 mEq/L (23-29); Chloride 106 mEq/L (98-107); Glucose 155 mg/dL (70-105); Magnesium 1.9 mg/dL (1.6-2.6); Osmolality,Calculated 296 (280-300); Phosphorous 3.4 mg/dL (2.7-4.5); Potassium 3.3 mEq/L (3.5-5.1); Sodium 142 mEq/L (136-145); eGFR For Non-African Americans > 60 (> 60)
[2018-05-14] MEDS: *HR* Heparin 5,000 UNIT/ML VIAL SQ SCH ×2 (06:23→19:03)
[2018-05-14] MEDS: Budesonide/Formoterol 160/4.5 1 PUFF INH IH SCH ×2 (07:59→20:27)
[2018-05-14] MEDS ORDERED: *HR* Labetalol 20 MG/4 ML SYRINGE IVP ONE (08:42)
[2018-05-14] MEDS ORDERED: *HR* Labetalol 20 MG/4 ML SYRINGE IVP PRN (08:42)
[2018-05-14] MEDS ORDERED: Potassium Chloride 40 MEQ, Lidocaine 1% 2 ML in D5% in Water 500 ML IVPB ONE (08:43)
[2018-05-14] MEDS: Pantoprazole 40 MG VIAL IVP SCH (09:47)
[2018-05-14] MEDS: cefTRIAXone 1,000 MG in Water for inj. (sterile) 20 ML 10 ML IVP SCH (09:47)
--- NOTE | 2018-05-14 10:34 | Internal Med Progress Note ---
Hospitalist Progress Note - Encounter Date of Encounter: 05/14/18 Time of Encounter: 10:34 - Subjective Interval History: Seen and evaluated at the bedside with family No new complains Yet to have BM Hemodynamically stable, surgery following - Exam Vitals: Temp Pulse Resp BP Pulse Ox 98.1 F 64 18 177/84 97 05/14/18 06:21 05/14/18 06:21 05/14/18 06:21 05/14/18 06:21 05/14/18 06:21 Exam: General appearance: Not in any distress, morbidly obese Head exam: Atraumatic Eye exam: EOMI, PERRLA ENT exam: Moist oral mucosa Neck:normal inspection Respiratory exam: Slight diminished breath sound at the base bilaterally-could be due to body habitus as well Cardiovascular exam: S1, S2 only, RRR, No m/g/r Abdomen: Very mild and vague tenderness , no rebound, no guarding, slight, no bowel sounds Extremities exam: No calf tenderness, no edema Skin- warm, dry, intact Neurological exam: AAOX3 CN II-XII intact, no focal deficits. No facial droop. Normal speech. - Assessment and Plan (1) Small bowel obstruction Current Visit: Yes Status: Acute Assessment and Plan: Status post small bowel resection, reduction of internal hernia, adhesinolysis on 2017. POD 6 Remains NPO, BS is absent Continue IV fluid total 100 mL per hour, pain management continue antibiotic Zosyn, strict I&O's , incentive spirometry. Continue TPN, had hypophosphatemia,replaced , resolved Continue DVT and GI prophylaxis. PT OT on board and recommended for inpatient rehabilitation upon discharge-per SW, patient is refusing at this time Continue PT, OOB to chair, ambulate prn Other management/wound care per surgery (2) Diabetes Current Visit: Yes Status: Chronic Assessment and Plan: Continue FS Q4-Q6 Sliding scale insulin Goal FS 140-180, currently acceptable (3) HTN (hypertension), benign Current Visit: Yes Status: Chronic Assessment and Plan: Uncontrolled Add labetalol IV q8hr prn continue to monitor (4) DVT prophylaxis Current Visit: Yes Status: Acute Assessment and Plan: Subcutaneous heparin (5) UTI (urinary tract infection), bacterial Current Visit: Yes Status: Acute Assessment and Plan: Urine culture with Escherichia coli sensitive to Zosyn. Changed to Ceftriaxone-a/b day 12/26 for complicated UTI DVT Prophylaxis: SQ heparin - Time Spent with Patient Total time spent is greater than 50% in coordination of care (as documented) at patient's floor/unit and/or counseling patient: Plan of Care Discussed with: patient Internal Medicine: Result - Labs CBC & Chem 7: 05/14/18 04:37 05/14/18 05:42 Labs: Short CBC 05/14/18 Range/Units 04:37 WBC 9.2 (4.3-11.1) K/mcL Hgb 12.7 L D (12.9-16.9) g/dL Hct 36.3 L (37.5-50.1) % Plt Count 213 (140-400) K/mcL Neutrophils # 6.9 (1.6-8.9) K/mcL BMP 05/14/18 05:42 Sodium 142 Potassium 3.3 L Chloride 106 Carbon Dioxide 29 BUN 9 Creatinine 0.54 L Glucose 155 H Calcium 8.4 L - Impressions Impressions KUB X-Ray 05/13/18 21:08 IMPRESSION: Nasogastric tube has been repositioned with tip in the midthoracic esophagus. Repositioning recommended. 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
--- NOTE | 2018-05-14 16:26 | General Surgery Progress Note ---
Addendum entered and electronically signed by Giles Palmer MD 05/14/18 19:46: Addendum: patient with bowel function; removed NG tube; started on CLD; can advance as tolerated on 05/15 Original Note: <Amelia Tirado - Last Filed: 05/14/18 16:23> Date of Encounter: 05/14/18 Time of Encounter: 16:23 - Assessment and Plan (1) Small bowel obstruction Current Visit: Yes Status: Acute Date of procedure: 05/08/18 Pre-op diagnosis: small bowel obstruction 2/2 internal hernia Post-op diagnosis: same Procedure: exploratory laparotomy lysis of adhesions x 60min reduction of internal hernia small bowel resection with stapled anastamosis Closure of the mesenteric defect with a running 2-0 PDS suture POD #6 as above. Pt continues to require extensive encouragement to participate in his own care. PT/Ot have been ordered. He is getting OOB but has not ambulated halls. He does attempt to dictate care often. I did review extensively with him the need for participation in care, ambulation, IS, and the benefits/risks of these. Further reviewed that getting out of bed to chair and ambulate in the halls would be positive for his bowel health. Pt states he will attempt to participate. Large amount of NBG output and although pt was ordered small amount of ice chips only, bedside RN reports he was caught several times drinking fluids. Plan: Stat KUB, adjust NG as indicated Not ready to advance. Prolonged postoperative ileus 1/2 small cup ice chips Q8H continue Reglan continue supportive care and discomfort management pt advised he MUST ambulate the halls today Continue GI and DVT prophylaxis Continue PT/OT Total IVF per primary team. Continue TPN until adequate po (2) Chronic pain Current Visit: Yes Status: Acute PEr review with pharmacist, last RX of oxcodone was for 90 tabs, 30 days 15 mg Q8H (3) Diabetes Current Visit: Yes Status: Chronic Per primary team (4) HTN (hypertension), benign Current Visit: Yes Status: Chronic per primary team (5) DVT prophylaxis Current Visit: Yes Status: Acute He is without EPCDs upon my assessment.Pt states they have been on that he "just took a break." He is encouraged to use EPCDs when in bed and in chair Subjective Patient reports: no new complaints, still having pain, pain is less, voiding w/o difficulty, flatus ("small fluffers"), afebrile, other (Feels full and bloated) Objective Vital Signs - Last 8 Hours Temp Pulse Resp BP Pulse Ox 05/14/18 14:57 98.7 F 68 18 183/74 96 05/14/18 11:41 18 98 05/14/18 10:44 97.9 F 64 18 164/79 99 Intake and Output 05/14/18 05/14/18 05/14/18 07:59 15:59 23:59 Intake Total 550 / 550 110 / 110 Output Total 525 / 525 975 / 975 Balance -865 / -865 Intake: IV Fluids 550 / 550 110 / 110 Rocephin 1,000 MG In Water for inj. (sterile) 10 ML @ 600 mls/ hr IVP DAILY [facility] Rx#:[id number] Ofirmev 1,000 mg/100 ml 1,000 200 / 200 100 / 100 mg In 100 ml @ 400 mls/hr IVPB Q6HR [facility] Rx#:[id number] Intralipid 20% 250 ML @ 21 mls/ 250 / 250 hr IVPB DAILY@1700 [facility] Rx#: [id number] Zosyn 3.375 GM In 0.9 % Sodium 100 / 100 Chloride (Mini-Bag +) 100 ML @ 25 mls/hr IVPB Q8H [facility] Rx#: [id number] Oral 0 / 0 0 / 0 Output: Urine 0 / 0 850 / 850 Gastric Drainage 525 / 525 125 / 125 Other: # Voids 1 # Bowel Movements 0 Weight 158.9 kg Blood Glucose* 132 118 Patient Weight 05/14/18 23:59 Weight 158.9 kg - General physical appearance well nourished, no distress - Eyes normal ocular movement - ENT normal nares (NG secured, but appears to have been pulled out part way) - Neck Neck exam: trachea midline - Respiratory normal expansion, normal respiratory effort - Cardiovascular Cardiovascular exam: Present: RRR - Abdomen Abdomen: Present: soft, tympanic, distended, tender. Absent: bowel sounds present Hernia: none - Incision Incision: Present: clean and dry, intact - Integumentary no rash - Neurologic normal sensation - Musculoskeletal normal posture - Psychiatric oriented to time, oriented to person, oriented to place, speech is normal, memory intact - Labs 05/14/18 04:37 05/14/18 05:42 Diabetes panel 05/14/18 Range/Units 05:42 Sodium 142 (136-145) mEq/L Potassium 3.3 L (3.5-5.1) mEq/L Chloride 106 (98-107) mEq/L Carbon Dioxide 29 (23-29) mEq/L BUN 9 (6-20) mg/dL Creatinine 0.54 L (0.70-1.30) mg/dL Glucose 155 H (70-105) mg/dL Calcium 8.4 L (8.6-10.3) mg/dL Calcium panel 05/14/18 Range/Units 05:42 Calcium 8.4 L (8.6-10.3) mg/dL Phosphorus 3.4 (2.7-4.5) mg/dL Pituitary panel 05/14/18 Range/Units 05:42 Sodium 142 (136-145) mEq/L Potassium 3.3 L (3.5-5.1) mEq/L Chloride 106 (98-107) mEq/L Carbon Dioxide 29 (23-29) mEq/L BUN 9 (6-20) mg/dL Creatinine 0.54 L (0.70-1.30) mg/dL Glucose 155 H (70-105) mg/dL Calcium 8.4 L (8.6-10.3) mg/dL Adrenal panel 05/14/18 Range/Units 05:42 Sodium 142 (136-145) mEq/L Potassium 3.3 L (3.5-5.1) mEq/L Chloride 106 (98-107) mEq/L Carbon Dioxide 29 (23-29) mEq/L BUN 9 (6-20) mg/dL Creatinine 0.54 L (0.70-1.30) mg/dL Glucose 155 H (70-105) mg/dL Calcium 8.4 L (8.6-10.3) mg/dL Consult Discharge Plan - Plan Referrals: Keith Spann MD [Primary Care Provider] - <Giles Palmer - Last Filed: 05/14/18 17:30> Date of Encounter: 05/14/18 - Assessment and Plan (1) Small bowel obstruction Current Visit: Yes Status: Acute Objective Vital Signs - Last 8 Hours Temp Pulse Resp BP Pulse Ox 05/14/18 16:43 18 96 05/14/18 14:57 98.7 F 68 18 183/74 96 05/14/18 11:41 18 98 05/14/18 10:44 97.9 F 64 18 164/79 99 Intake and Output 05/14/18 05/14/18 05/14/18 07:59 15:59 23:59 Intake Total 550 / 550 110 / 110 Output Total 525 / 525 975 / 975 Balance -865 / -865 Intake: IV Fluids 550 / 550 110 / 110 Rocephin 1,000 MG In Water for inj. (sterile) 10 ML @ 600 mls/ hr IVP DAILY [facility] Rx#:[id number] Ofirmev 1,000 mg/100 ml 1,000 200 / 200 100 / 100 mg In 100 ml @ 400 mls/hr IVPB Q6HR [facility] Rx#:[id number] Intralipid 20% 250 ML @ 21 mls/ 250 / 250 hr IVPB DAILY@1700 [facility] Rx#: [id number] Zosyn 3.375 GM In 0.9 % Sodium 100 / 100 Chloride (Mini-Bag +) 100 ML @ 25 mls/hr IVPB Q8H [facility] Rx#: [id number] Oral 0 / 0 0 / 0 Output: Urine 0 / 0 850 / 850 Gastric Drainage 525 / 525 125 / 125 Other: # Voids 1 # Bowel Movements 0 Weight 158.9 kg Blood Glucose* 132 118 132 Patient Weight 05/14/18 23:59 Weight 158.9 kg - Labs 05/14/18 04:37 05/14/18 05:42 Diabetes panel 05/14/18 Range/Units 05:42 Sodium 142 (136-145) mEq/L Potassium 3.3 L (3.5-5.1) mEq/L Chloride 106 (98-107) mEq/L Carbon Dioxide 29 (23-29) mEq/L BUN 9 (6-20) mg/dL Creatinine 0.54 L (0.70-1.30) mg/dL Glucose 155 H (70-105) mg/dL Calcium 8.4 L (8.6-10.3) mg/dL Calcium panel 05/14/18 Range/Units 05:42 Calcium 8.4 L (8.6-10.3) mg/dL Phosphorus 3.4 (2.7-4.5) mg/dL Pituitary panel 05/14/18 Range/Units 05:42 Sodium 142 (136-145) mEq/L Potassium 3.3 L (3.5-5.1) mEq/L Chloride 106 (98-107) mEq/L Carbon Dioxide 29 (23-29) mEq/L BUN 9 (6-20) mg/dL Creatinine 0.54 L (0.70-1.30) mg/dL Glucose 155 H (70-105) mg/dL Calcium 8.4 L (8.6-10.3) mg/dL Adrenal panel 05/14/18 Range/Units 05:42 Sodium 142 (136-145) mEq/L Potassium 3.3 L (3.5-5.1) mEq/L Chloride 106 (98-107) mEq/L Carbon Dioxide 29 (23-29) mEq/L BUN 9 (6-20) mg/dL Creatinine 0.54 L (0.70-1.30) mg/dL Glucose 155 H (70-105) mg/dL Calcium 8.4 L (8.6-10.3) mg/dL - Attending Attestation patient seen and examined. I have reviewed all labs, imaging, and notes. I agree with the above assessment and plan and wish to add the following... patient reports multiple episodes of flatus; clamp NG tube x 4hrs; if less than 301, then okay for d/c NG tube and start CLD if clears started, then can advance diet as tolerated OOBTC, PT/OT will cont to follow
[2018-05-14] MEDS ORDERED: Clinimix E 5%-15% SOLUTION 2,000 ML with MVI, adult with vitamin K 10 ML IVC SCH (17:00)
[2018-05-15] MEDS: OXYCODONE Oral CONC 10 MG/0.5 ML ORAL.SYG SL SCH ×2 (00:20→08:17)
[2018-05-15] MEDS: Ketorolac 15 MG/ML VIAL IVP SCH ×2 (00:21→06:06)
[2018-05-15] MEDS: Insulin LISPRO 300 UNITS/3 ML VIAL SQ SCH ×3 (00:21→08:10)
[2018-05-15] MEDS: Acetaminophen IV 1,000 MG/100 ML INFUS..BTL IVPB SCH ×2 (00:21→06:07)
[2018-05-15] MEDS: Metoclopramide 10 MG/2 ML VIAL IVP SCH ×4 (00:22→17:21)
[2018-05-15 04:03] LABS: Basophils % 0.4 %; Eosinophils # 0.2 K/mcL (0.0-0.6); Eosinophils % 2.9 %; Hematocrit 31.9 % (37.5-50.1); Immature Granulocytes % 0.7 % (0-4); Lymphocytes # 1.5 K/mcL (0.6-4.6); Lymphocytes % 20.1 %; Mean Corpuscular HGB Conc 34.5 g/dL (31.6-35.5); Mean Corpuscular Hemoglobin 33.8 pg (28.0-33.3); Mean Corpuscular Volume 98.2 fL (83.0-100.0); Mean Platelet Volume 9.1 fL (9.4-12.4); Monocytes # 0.5 K/mcL (0.0-1.3); Monocytes % 6.6 %; Neutrophils # 5.3 K/mcL (1.6-8.9); Platelet Count 180 K/mcL (140-400); Red Blood Count 3.25 M/mcL (4.19-5.50); Red Cell Distribution Width 12.2 % (11.5-14.5); Segmented Neutrophils % 69.3 %
[2018-05-15 04:16] LABS: BUN/Creatinine Ratio 16 (6-26); Blood Urea Nitrogen 8 mg/dL (6-20); Calcium 8.2 mg/dL (8.6-10.3); Carbon Dioxide 30 mEq/L (23-29); Chloride 106 mEq/L (98-107); Glucose 139 mg/dL (70-105); Magnesium 1.7 mg/dL (1.6-2.6); Osmolality,Calculated 295 (280-300); Phosphorous 3.8 mg/dL (2.7-4.5); Potassium 3.2 mEq/L (3.5-5.1); Sodium 142 mEq/L (136-145); eGFR For Non-African Americans > 60 (> 60)
[2018-05-15] MEDS: Ipratropium/Albuterol Neb 3 ML IH SCH ×6 (04:23→23:36)
[2018-05-15] MEDS: 0.9 % Sodium Chloride 1,000 ML IVC SCH (06:03)
[2018-05-15] MEDS: *HR* Heparin 5,000 UNIT/ML VIAL SQ SCH ×2 (06:05→17:21)
[2018-05-15] MEDS: Budesonide/Formoterol 160/4.5 1 PUFF INH IH SCH ×2 (07:50→20:16)
[2018-05-15] MEDS: cefTRIAXone 1,000 MG in Water for inj. (sterile) 20 ML 10 ML IVP SCH (08:17)
[2018-05-15] MEDS: Pantoprazole 40 MG VIAL IVP SCH (08:17)
[2018-05-15] MEDS ORDERED: Acetaminophen 325 MG TABLET PO PRN (08:24)
--- NOTE | 2018-05-15 08:56 | Internal Med Progress Note ---
Hospitalist Progress Note - Encounter Date of Encounter: 05/15/18 Time of Encounter: 09:00 - Subjective Interval History: Seen and evaluated at the bedside Now tolerating po No new complains He is noted to have new pitting pedal edema on exam-Discontinue IVF, IV acetaminophen, resume home meds Other management per surgery - Exam Vitals: Temp Pulse Resp BP Pulse Ox 98.4 F 70 18 166/83 94 05/15/18 07:19 05/15/18 07:19 05/15/18 07:51 05/15/18 07:19 05/15/18 07:51 Exam: General appearance: Not in any distress, morbidly obese Head exam: Atraumatic Eye exam: EOMI, PERRLA ENT exam: Moist oral mucosa Neck:normal inspection Respiratory exam: CTAB Cardiovascular exam: S1, S2 only, RRR, No m/g/r Abdomen: No tenderness , no rebound, no guarding, slight, no bowel sounds Extremities exam: pitting pedal edema Skin- warm, dry, intact Neurological exam: AAOX3 CN II-XII intact, no focal deficits. No facial droop. Normal speech. - Assessment and Plan (1) Small bowel obstruction Current Visit: Yes Status: Acute Assessment and Plan: Status post small bowel resection, reduction of internal hernia, adhesinolysis on 2017. POD 7 Tolerating po, advance per surgery Continue antibiotics Ambulate Continue TPN, d/c IVF Continue to monitor (2) Diabetes Current Visit: Yes Status: Chronic Assessment and Plan: Continue FS ACHS Sliding scale insulin Goal FS 140-180, currently acceptable (3) HTN (hypertension), benign Current Visit: Yes Status: Chronic Assessment and Plan: Resume home losartan, lasix, metoprolol Continue to monior (4) DVT prophylaxis Current Visit: Yes Status: Acute Assessment and Plan: Subcutaneous heparin (5) UTI (urinary tract infection), bacterial Current Visit: Yes Status: Acute Assessment and Plan: Urine culture with Escherichia coli sensitive to Zosyn., cephalosporins Changed to Ceftriaxone-a/b day Received Zosyn for 5 days, Ceftriaxone, day 2 Total 12/26 for complicated UTI DVT Prophylaxis: SQ heparin - Time Spent with Patient Total time spent is greater than 50% in coordination of care (as documented) at patient's floor/unit and/or counseling patient: Plan of Care Discussed with: patient Internal Medicine: Result - Labs CBC & Chem 7: 05/15/18 03:30 05/15/18 03:30 Labs: Short CBC 05/15/18 Range/Units 03:30 WBC 7.6 (4.3-11.1) K/mcL Hgb 11.0 L D (12.9-16.9) g/dL Hct 31.9 L (37.5-50.1) % Plt Count 180 (140-400) K/mcL Neutrophils # 5.3 (1.6-8.9) K/mcL BMP 05/15/18 03:30 Sodium 142 Potassium 3.2 L Chloride 106 Carbon Dioxide 30 H BUN 8 Creatinine 0.51 L Glucose 139 H Calcium 8.2 L - Impressions Impressions Chest X-Ray 05/14/18 16:19 IMPRESSION: Tip of the nasogastric tube projects high in the oropharynx. D/ / Vikas Mccormick / Vikas Mccormick Interpreting Provider: Vikas Mccormick X-Ray 05/14/18 17:10 IMPRESSION: Please of as nasogastric tube 5-10 cm. D/ / Vikas Mccormick / Vikas Mccormick Interpreting Provider: Vikas Mccormick Consult Discharge Plan - Plan Referrals: Keith Spann MD [Primary Care Provider] - __ (2) Diabetes Qualifiers: Diabetes mellitus type: type 2 Diabetes mellitus residential insulin use: without oysterman use Diabetes mellitus complication status: with unspecified complications Qualified Code(s): E11.8 - Type 2 diabetes mellitus with unspecified complications
[2018-05-15] MEDS: Furosemide 40 MG TABLET PO SCH (09:35)
[2018-05-15] MEDS: Pregabalin 50 MG CAPSULE PO SCH ×3 (09:35→20:30)
[2018-05-15] MEDS: Fenofibrate 54 MG TABLET PO SCH (09:35)
--- NOTE | 2018-05-15 11:34 | General Surgery Progress Note ---
<Amelia Tirado - Last Filed: 05/15/18 11:30> Date of Encounter: 05/15/18 Time of Encounter: 11:30 - Assessment and Plan (1) Small bowel obstruction Current Visit: Yes Status: Acute Date of procedure: 05/08/18 Pre-op diagnosis: small bowel obstruction 2/2 internal hernia Post-op diagnosis: same Procedure: exploratory laparotomy lysis of adhesions x 60min reduction of internal hernia small bowel resection with stapled anastamosis Closure of the mesenteric defect with a running 2-0 PDS suture POD #7 as above. Improving NG removed 05/14, FLD, ADAT, having bowel function Plan: continue supportive care and discomfort management continue full liquid diet, may advance diet as tolerated continue Colace twice daily add MiraLAX PRN if no bowel movement the day previous continue PT and OT discharge planning per primary team. Noted primary team changed patient's postoperative pain medication. Optimize and continuation per primary team. Weaving TPN to off (2) Chronic pain Current Visit: Yes Status: Acute Per primary team Qualifiers: Chronic pain type: other chronic pain Qualified Code(s): G89.29 - Other chronic pain (3) Diabetes Current Visit: Yes Status: Chronic Per primary team Qualifiers: Diabetes mellitus type: type 2 Diabetes mellitus senior care insulin use: without senior care use Diabetes mellitus complication status: with unspecified complications Qualified Code(s): E11.8 - Type 2 diabetes mellitus with unspe cified complications (4) HTN (hypertension), benign Current Visit: Yes Status: Chronic per primary team (5) DVT prophylaxis Current Visit: Yes Status: Acute per primary team Subjective Patient reports: no new complaints, feels better, still having pain, pain is less, tolerating liquids well, voiding w/o difficulty, flatus, bowel movement, afebrile Objective Vital Signs - Last 8 Hours Temp Pulse Resp BP Pulse Ox 05/15/18 11:26 18 96 05/15/18 07:51 18 94 05/15/18 07:19 98.4 F 70 166/83 97 05/15/18 04:24 16 95 05/15/18 04:22 97.9 F 64 20 150/79 98 Intake and Output 05/14/18 05/15/18 05/15/18 23:59 07:59 15:59 Intake Total 900 / 900 650 / 650 370 / 370 Output Total 300 / 300 0 / 0 275 / 275 Balance 600 / 600 650 / 650 95 / 95 Intake: IV Fluids 900 / 900 650 / 650 10 / 10 0.9 % Sodium Chloride 1,000 ML 800 / 800 200 / 200 @ 50 mls/hr IVC .Q20H [facility] Rx#: [id number] Rocephin 1,000 MG In Water for 10 10 inj. (sterile) 10 ML @ 600 mls/ hr IVP DAILY [facility] Rx#:[id number] Ofirmev 1,000 mg/100 ml 1,000 100 / 100 200 / 200 mg In 100 ml @ 400 mls/hr IVPB Q6HR [facility] Rx#:[id number] Intralipid 20% 250 ML @ 21 mls/ 250 / 250 hr IVPB DAILY@1700 [facility] Rx#: [id number] Oral 0 / 0 0 / 0 360 / 360 Output: Urine 300 / 300 0 / 0 275 / 275 Other: Weight 160 kg Blood Glucose* 139 128 Patient Weight 05/15/18 23:59 Weight 160 kg - General physical appearance no distress - Eyes normal ocular movement - ENT normal nares - Neck Neck exam: trachea midline - Respiratory normal expansion, normal respiratory effort, clear to auscultation - Cardiovascular Cardiovascular exam: Present: distant heart sounds - Abdomen Abdomen: Present: bowel sounds present, soft, tender (expected postoperative) Hernia: none - Incision Incision: Present: clean and dry, intact - Integumentary no growths - Neurologic normal sensation - Musculoskeletal normal posture - Psychiatric oriented to time, oriented to person, oriented to place, speech is normal, memory intact - Labs 05/15/18 03:30 05/15/18 03:30 Diabetes panel 05/15/18 Range/Units 03:30 Sodium 142 (136-145) mEq/L Potassium 3.2 L (3.5-5.1) mEq/L Chloride 106 (98-107) mEq/L Carbon Dioxide 30 H (23-29) mEq/L BUN 8 (6-20) mg/dL Creatinine 0.51 L (0.70-1.30) mg/dL Glucose 139 H (70-105) mg/dL Calcium 8.2 L (8.6-10.3) mg/dL Calcium panel 05/15/18 Range/Units 03:30 Calcium 8.2 L (8.6-10.3) mg/dL Phosphorus 3.8 (2.7-4.5) mg/dL Pituitary panel 05/15/18 Range/Units 03:30 Sodium 142 (136-145) mEq/L Potassium 3.2 L (3.5-5.1) mEq/L Chloride 106 (98-107) mEq/L Carbon Dioxide 30 H (23-29) mEq/L BUN 8 (6-20) mg/dL Creatinine 0.51 L (0.70-1.30) mg/dL Glucose 139 H (70-105) mg/dL Calcium 8.2 L (8.6-10.3) mg/dL Adrenal panel 05/15/18 Range/Units 03:30 Sodium 142 (136-145) mEq/L Potassium 3.2 L (3.5-5.1) mEq/L Chloride 106 (98-107) mEq/L Carbon Dioxide 30 H (23-29) mEq/L BUN 8 (6-20) mg/dL Creatinine 0.51 L (0.70-1.30) mg/dL Glucose 139 H (70-105) mg/dL Calcium 8.2 L (8.6-10.3) mg/dL Consult Discharge Plan - Plan Instructions: Bowel Resection (DC) Additional Instructions: General Surgical Discharge Instructions 1. No pushing, pulling, or lifting greater than 15 lbs for 2-4 weeks (depending upon procedure). 2. You may shower beginning today, but no tub baths, soaking, or swimming for 2 weeks. 3. You may resume driving when you are off narcotics and are safe to react in a car. 4. Continue your home pain medications 5. Take stool softeners (Colace) or a water based laxative (Miralax) while taking narcotics. You may hold for loose stools. 6. Report any fevers greater than 100.5F, increase abdominal discomfort, drainage that looks like pus, increased redness or pain at the surgical site, or any vomiting. 7. Report any pain in the calves, shortness of breath, or rapid heartbeat. 8. Follow-up in the office as directed. 9. If you were prescribed antibiotics, do not stop them without talking to your provider. Referrals: Keith Spann MD [Primary Care Provider] - Giles Palmer MD [Non-Partnered Physician] - 05/26/18 4:15 pm <Israel Cisneros - Last Filed: 05/16/18 16:16> Date of Encounter: 05/15/18 - Assessment and Plan (1) Small bowel obstruction Current Visit: Yes Status: Acute Objective Vital Signs - Last 8 Hours Temp Pulse Resp BP Pulse Ox 05/16/18 15:47 18 93 05/16/18 13:58 90 95 05/16/18 13:57 98.2 F 126/74 05/16/18 13:55 94 05/16/18 11:25 18 93 05/16/18 09:59 98.4 F 71 19 143/71 93 Intake and Output 05/16/18 05/16/18 05/16/18 07:59 15:59 23:59 Intake Total 0 / 0 1074 / 1074 Output Total 450 / 450 2525 / 2525 Balance -450 / -450 -1451 / -1451 Intake: IV Fluids 114 / 114 Rocephin 1,000 MG In Water for inj. (sterile) 10 ML @ 600 mls/ hr IVP DAILY [facility] Rx#:[id number] Magnesium Sulfate 2 GM In 0.9 % 104 / 104 Sodium Chloride 100 ML @ 104 mls/hr IVPB ONCE ONE Rx#: [id number] Oral 0 / 0 960 / 960 Output: Urine 450 / 450 2525 / 2525 Other: Meal Lunch Percent of Meal Consumed 100% # Bowel Movements 0 Weight 161.3 kg Blood Glucose* 123 141 128 Patient Weight 05/16/18 23:59 Weight 161.3 kg - Labs 05/15/18 03:30 05/16/18 05:15 Diabetes panel 05/16/18 Range/Units 05:15 Sodium 139 (136-145) mEq/L Potassium 3.5 (3.5-5.1) mEq/L Chloride 102 (98-107) mEq/L Carbon Dioxide 32 H (23-29) mEq/L BUN 10 (6-20) mg/dL Creatinine 0.53 L (0.70-1.30) mg/dL Glucose 109 H (70-105) mg/dL Calcium 8.2 L (8.6-10.3) mg/dL Calcium panel 05/16/18 Range/Units 05:15 Calcium 8.2 L (8.6-10.3) mg/dL Phosphorus 3.6 (2.7-4.5) mg/dL Pituitary panel 05/16/18 Range/Units 05:15 Sodium 139 (136-145) mEq/L Potassium 3.5 (3.5-5.1) mEq/L Chloride 102 (98-107) mEq/L Carbon Dioxide 32 H (23-29) mEq/L BUN 10 (6-20) mg/dL Creatinine 0.53 L (0.70-1.30) mg/dL Glucose 109 H (70-105) mg/dL Calcium 8.2 L (8.6-10.3) mg/dL Adrenal panel 05/16/18 Range/Units 05:15 Sodium 139 (136-145) mEq/L Potassium 3.5 (3.5-5.1) mEq/L Chloride 102 (98-107) mEq/L Carbon Dioxide 32 H (23-29) mEq/L BUN 10 (6-20) mg/dL Creatinine 0.53 L (0.70-1.30) mg/dL Glucose 109 H (70-105) mg/dL Calcium 8.2 L (8.6-10.3) mg/dL - Attending Attestation I have personally performed a face to face evaluation on this patient. I have reviewed and agree with the care plan. History and Exam by me shows: I reviewed the above assessment and evaluation and agree with the above plan.
[2018-05-15] MEDS ORDERED: Clinimix E 5%-15% SOLUTION 2,000 ML with MVI, adult with vitamin K 10 ML IVC SCH ×2 (11:40→17:00)
[2018-05-15] MEDS: *HR* OxyCODONE Immed Rel 15 MG TABLET PO PRN ×2 (12:17→18:57)
[2018-05-16] MEDS: *HR* OxyCODONE Immed Rel 15 MG TABLET PO PRN ×4 (00:17→18:15)
[2018-05-16] MEDS: Metoclopramide 10 MG/2 ML VIAL IVP SCH ×5 (00:17→23:30)
[2018-05-16] MEDS: Ipratropium/Albuterol Neb 3 ML IH SCH ×5 (04:09→19:43)
[2018-05-16] MEDS: *HR* Heparin 5,000 UNIT/ML VIAL SQ SCH ×2 (05:05→18:15)
[2018-05-16 05:49] LABS: BUN/Creatinine Ratio 19 (6-26); Blood Urea Nitrogen 10 mg/dL (6-20); Calcium 8.2 mg/dL (8.6-10.3); Carbon Dioxide 32 mEq/L (23-29); Chloride 102 mEq/L (98-107); Glucose 109 mg/dL (70-105); Magnesium 1.5 mg/dL (1.6-2.6); Osmolality,Calculated 288 (280-300); Phosphorous 3.6 mg/dL (2.7-4.5); Potassium 3.5 mEq/L (3.5-5.1); Sodium 139 mEq/L (136-145); eGFR For Non-African Americans > 60 (> 60)
[2018-05-16] MEDS: Budesonide/Formoterol 160/4.5 1 PUFF INH IH SCH ×2 (07:42→19:39)
[2018-05-16] MEDS: Fenofibrate 54 MG TABLET PO SCH (09:35)
[2018-05-16] MEDS: Pregabalin 50 MG CAPSULE PO SCH ×3 (09:35→20:13)
[2018-05-16] MEDS: Pantoprazole 40 MG VIAL IVP SCH (09:36)
[2018-05-16] MEDS: cefTRIAXone 1,000 MG in Water for inj. (sterile) 20 ML 10 ML IVP SCH (09:36)
[2018-05-16] MEDS: Furosemide 40 MG TABLET PO SCH (09:36)
--- NOTE | 2018-05-16 10:01 | General Surgery Progress Note ---
Date of Encounter: 05/16/18 Time of Encounter: 10:01 - Assessment and Plan (1) Small bowel obstruction Current Visit: Yes Status: Acute s/p SBR POD6. Doing well. Will advance diet to soft. Patient ok to be discharged home from surgery standpoint once he tolerates lunch. We will make certain our office contacts him to setup a follow up appointment in two weeks. Will sign off. Thank you. Subjective Patient reports: no new complaints, other (positive flatus. No nausea or vomiting. Tolerating diet.) Objective Vital Signs - Last 8 Hours Temp Pulse Resp BP Pulse Ox 05/16/18 09:59 98.4 F 71 19 143/71 93 05/16/18 07:44 18 94 05/16/18 06:25 99.1 F 71 18 126/72 93 05/16/18 04:11 18 96 05/16/18 02:45 98.5 F 60 16 127/72 95 Intake and Output 05/15/18 05/16/18 05/16/18 23:59 07:59 15:59 Intake Total 3010 / 3010 0 / 0 480 / 480 Output Total 300 / 300 450 / 450 875 / 875 Balance 2710 / 2710 -450 / -450 -395 / -395 Intake: IV Fluids 3010 / 3010 Clinimix E 5%-15% SOLUTION 2009 000 ML @ 83.3 mls/hr IVC .Q24H [facility] with M.v.i. Adult 10 ml Rx# :[id number] Oral 0 / 0 0 / 0 480 / 480 Output: Urine 300 / 300 450 / 450 875 / 875 Other: Meal Breakfast Percent of Meal Consumed 100% Stool Size Moderate Stool Consistency formed Stool Color Brown # Voids 1 # Bowel Movements 1 0 Weight 161.3 kg Blood Glucose* 114 123 Patient Weight 05/16/18 23:59 Weight 161.3 kg - General physical appearance well developed, well nourished, no distress - Abdomen Abdomen: Present: bowel sounds present, soft, non tender (incision CDI. No erythema. No drainage) - Labs 05/15/18 03:30 05/16/18 05:15 Diabetes panel 05/16/18 Range/Units 05:15 Sodium 139 (136-145) mEq/L Potassium 3.5 (3.5-5.1) mEq/L Chloride 102 (98-107) mEq/L Carbon Dioxide 32 H (23-29) mEq/L BUN 10 (6-20) mg/dL Creatinine 0.53 L (0.70-1.30) mg/dL Glucose 109 H (70-105) mg/dL Calcium 8.2 L (8.6-10.3) mg/dL Calcium panel 05/16/18 Range/Units 05:15 Calcium 8.2 L (8.6-10.3) mg/dL Phosphorus 3.6 (2.7-4.5) mg/dL Pituitary panel 05/16/18 Range/Units 05:15 Sodium 139 (136-145) mEq/L Potassium 3.5 (3.5-5.1) mEq/L Chloride 102 (98-107) mEq/L Carbon Dioxide 32 H (23-29) mEq/L BUN 10 (6-20) mg/dL Creatinine 0.53 L (0.70-1.30) mg/dL Glucose 109 H (70-105) mg/dL Calcium 8.2 L (8.6-10.3) mg/dL Adrenal panel 05/16/18 Range/Units 05:15 Sodium 139 (136-145) mEq/L Potassium 3.5 (3.5-5.1) mEq/L Chloride 102 (98-107) mEq/L Carbon Dioxide 32 H (23-29) mEq/L BUN 10 (6-20) mg/dL Creatinine 0.53 L (0.70-1.30) mg/dL Glucose 109 H (70-105) mg/dL Calcium 8.2 L (8.6-10.3) mg/dL Consult Discharge Plan - Plan Instructions: Bowel Resection (DC) Additional Instructions: General Surgical Discharge Instructions 1. No pushing, pulling, or lifting greater than 15 lbs for 2-4 weeks (depending upon procedure). 2. You may shower beginning today, but no tub baths, soaking, or swimming for 2 weeks. 3. You may resume driving when you are off narcotics and are safe to react in a car. 4. Continue your home pain medications 5. Take stool softeners (Colace) or a water based laxative (Miralax) while taking narcotics. You may hold for loose stools. 6. Report any fevers greater than 100.5F, increase abdominal discomfort, drainage that looks like pus, increased redness or pain at the surgical site, or any vomiting. 7. Report any pain in the calves, shortness of breath, or rapid heartbeat. 8. Follow-up in the office as directed. 9. If you were prescribed antibiotics, do not stop them without talking to your provider. Referrals: Keith Spann MD [Primary Care Provider] - Giles Palmer MD [Non-Partnered Physician] - 05/26/18 4:15 pm
--- NOTE | 2018-05-16 10:49 | Internal Med Progress Note ---
Hospitalist Progress Note - Encounter Date of Encounter: 05/16/18 Time of Encounter: 10:49 - Subjective Interval History: Seen and evaluated at the bedside Now tolerating po No new complains Will switch meds to po, requalify for home O2, patient has been O2 dependent - Exam Vitals: Temp Pulse Resp BP Pulse Ox 98.4 F 71 19 143/71 93 05/16/18 09:59 05/16/18 09:59 05/16/18 09:59 05/16/18 09:59 05/16/18 09:59 Exam: General appearance: Not in any distress, morbidly obese Head exam: Atraumatic Eye exam: EOMI, PERRLA ENT exam: Moist oral mucosa Neck:normal inspection Respiratory exam: CTAB Cardiovascular exam: S1, S2 only, RRR, No m/g/r Abdomen: No tenderness , scar, clean, no rebound, no guarding, slight, no bowel sounds Extremities exam: trace bilateral pitting pedal edema Skin- warm, dry, intact Neurological exam: AAOX3 CN II-XII intact, no focal deficits. No facial droop. Normal speech. - Assessment and Plan (1) Small bowel obstruction Current Visit: Yes Status: Acute Assessment and Plan: Status post small bowel resection, reduction of internal hernia, adhesinolysis on 2017. POD 8 Tolerating po, advance per surgery Continue antibiotics Ambulate, TPN discontinued Change antibiotics to po Continue to monitor (2) Diabetes Current Visit: Yes Status: Chronic Assessment and Plan: Continue FS ACHS Sliding scale insulin Goal FS 140-180, currently acceptable (3) HTN (hypertension), benign Current Visit: Yes Status: Chronic Assessment and Plan: Continue losartan, lasix, metoprolol Continue to monior (4) DVT prophylaxis Current Visit: Yes Status: Acute Assessment and Plan: Subcutaneous heparin (5) UTI (urinary tract infection), bacterial Current Visit: Yes Status: Acute Assessment and Plan: Urine culture with Escherichia coli sensitive to Zosyn., cephalosporins Continue antibiotics-Day 01/26 Switch to po from a.m (6) Hypoxia Current Visit: Yes Status: Acute Assessment and Plan: not on home O2 Qualify for O2, 6 mins walk test - Time Spent with Patient Total time spent is greater than 50% in coordination of care (as documented) at patient's floor/unit and/or counseling patient: Internal Medicine: Result - Labs CBC & Chem 7: 05/15/18 03:30 05/16/18 05:15 Labs: BMP 05/16/18 05:15 Sodium 139 Potassium 3.5 Chloride 102 Carbon Dioxide 32 H BUN 10 Creatinine 0.53 L Glucose 109 H Calcium 8.2 L Consult Discharge Plan - Plan Instructions: Bowel Resection (DC) Additional Instructions: General Surgical Discharge Instructions 1. No pushing, pulling, or lifting greater than 15 lbs for 2-4 weeks (depending upon procedure). 2. You may shower beginning today, but no tub baths, soaking, or swimming for 2 weeks. 3. You may resume driving when you are off narcotics and are safe to react in a car. 4. Continue your home pain medications 5. Take stool softeners (Colace) or a water based laxative (Miralax) while taking narcotics. You may hold for loose stools. 6. Report any fevers greater than 100.5F, increase abdominal discomfort, drainage that looks like pus, increased redness or pain at the surgical site, or any vomiting. 7. Report any pain in the calves, shortness of breath, or rapid heartbeat. 8. Follow-up in the office as directed. 9. If you were prescribed antibiotics, do not stop them without talking to your provider. Referrals: Keith Spann MD [Primary Care Provider] - Giles Palmer MD [Non-Partnered Physician] - 05/26/18 4:15 pm (2) Diabetes Qualifiers: Diabetes mellitus type: type 2 Diabetes mellitus nursing home insulin use: without intermediate manager use Diabetes mellitus complication status: with unspecified complications Qualified Code(s): E11.8 - Type 2 diabetes mellitus with unspecified complications
[2018-05-16] MEDS ORDERED: Clinimix E 5%-15% SOLUTION 2,000 ML with MVI, adult with vitamin K 10 ML IVC SCH (17:00)
[2018-05-17] MEDS: *HR* OxyCODONE Immed Rel 15 MG TABLET PO PRN ×3 (00:22→12:34)
[2018-05-17] MEDS: Ipratropium/Albuterol Neb 3 ML IH SCH ×4 (00:28→11:02)
[2018-05-17 03:38] LABS: BUN/Creatinine Ratio 19 (6-26); Blood Urea Nitrogen 12 mg/dL (6-20); Carbon Dioxide 32 mEq/L (23-29); Chloride 101 mEq/L (98-107); Glucose 131 mg/dL (70-105); Magnesium 1.7 mg/dL (1.6-2.6); Osmolality,Calculated 288 (280-300); Phosphorous 3.1 mg/dL (2.7-4.5); Potassium 3.6 mEq/L (3.5-5.1); Sodium 138 mEq/L (136-145); eGFR For Non-African Americans > 60 (> 60)
[2018-05-17] MEDS: *HR* Heparin 5,000 UNIT/ML VIAL SQ SCH (05:11)
[2018-05-17] MEDS: Metoclopramide 10 MG/2 ML VIAL IVP SCH ×2 (05:11→12:35)
[2018-05-17] MEDS: Budesonide/Formoterol 160/4.5 1 PUFF INH IH SCH (07:37)
[2018-05-17] MEDS: Pregabalin 50 MG CAPSULE PO SCH (08:50)
[2018-05-17] MEDS: Pantoprazole 40 MG VIAL IVP SCH (08:50)
[2018-05-17] MEDS: Fenofibrate 54 MG TABLET PO SCH (08:50)
[2018-05-17] MEDS: Furosemide 40 MG TABLET PO SCH (08:50)
[2018-05-17] MEDS ORDERED: Cefdinir 300 MG CAPSULE PO SCH (09:00)
--- NOTE | 2018-05-17 09:44 | Event Note ---
Date of Encounter: 05/17/18 Time of Encounter: 09:43 Follow up with general surgery in two weeks with me, Dr. Palmer, in my clinic. NO heavy lifting until seen by me in my clinic.
--- NOTE | 2018-05-17 11:17 | Physician Discharge Referral ---
Home Health/Hosp Referral Info Transfer to: Home Health Attending Provider: Paulina Ojeda Diagnosis (1) Small bowel obstruction Priority: Primary Status: Resolved (2) Diabetes Priority: Secondary Status: Chronic (3) HTN (hypertension), benign Priority: Secondary Status: Chronic (4) DVT prophylaxis Priority: Primary Status: Resolved (5) UTI (urinary tract infection), bacterial Priority: Primary Status: Acute (6) Hypoxia Priority: Primary Status: Acute - Respiratory Orders Oxygen / L per min Smoking Cessation: Smoking cessation has been advised. For more information, call the [place] Tobacco Quit Line at 5-072-BWQG-NOW. - Diet/Nutrition Diet/Nutrition Orders: Cardiac - Activity Activity Orders: Up ad douglas - Services Needed Following services are medically necessary services: Nursing, Home Health Aide, Physical Therapy, Occupational Therapy - Transfer Medications Prescriptions: Cefdinir [Omnicef] 300 mg PO BID #14 capsule Home Medications: Albuterol Sulfate [Ventolin Hfa] 2 puff IH Q6H PRN 05/08/18 [History] Fenofibrate Nanocrystallized [Triglide] 160 mg PO DAILY 05/08/18 [History] Fluticasone Propionate Nasal [Flonase] 50 mcg NS DAILY PRN 05/08/18 [History] Fluticasone/Vilanterol [Breo Ellipta 200-25 Mcg INH] 1 puff IH DAILY 05/08/18 [History] Furosemide [Lasix] 40 mg PO DAILY 05/08/18 [History] Losartan Potassium [Cozaar] 100 mg PO DAILY 05/08/18 [History] Metformin HCl [Metformin HCl ER] 500 mg PO DAILY 05/08/18 [History] Metoprolol Succinate [Toprol Xl] 25 mg PO DAILY 05/08/18 [History] Oxycodone HCl [Roxybond] 15 mg PO Q6H 05/08/18 [History] Pregabalin [Lyrica] 200 mg PO TID 05/08/18 [History] Testosterone [Androgel] 4 appl TD DAILY 05/08/18 [History] Cefdinir [Omnicef] 300 mg PO BID #14 capsule 05/17/18 [Rx] Allergies/Adverse Reactions: Allergy/AdvReac Type Severity Reaction Status Date / Time lorazepam [From Ativan] AdvReac Hallucinati Verified 05/08/18 12:06 ng Certification: Further, I certify that my clinical findings support that this patient is homebound (i.e. absences from home require considerable and taxing effort and are for medical reasons or protestant services or infrequently or short duration when for other reasons) because: Homebound Reason: Patient requires assistance of a person or device to safely leave home Attestation: My signature below is to certify that this patient is under my care and that I, or nurse practitioner, or a physician's household personal assistant working with me, has a [id number] encounter with this patient.
[2018-05-17 11:27] VITALS: BP 137/73
--- NOTE | 2018-05-17 11:41 | Discharge Summary ---
- NOTES TO OUTPATIENT PROVIDER Notes to Outpatient Provider: Patient was admitted for management of SBO and UTI, s/p small bowel resection, reduction of internal hernia, adhesinolysis on 2017. POD 9 , tolerating orally, home medications have been resumed. he has required O2 throughout his hospital stay and qualified for home O2 at discharge. His home meds are the same, he is prescribed oral antibiotics for 7 more days to complete a 14 day course of treatment for complicated UTI. Follow up with PCP, Surgery. Date of Encounter: 05/17/18 Time of Encounter: 11:40 - Discharge Diagnosis (1) Small bowel obstruction Priority: Primary Status: Resolved (2) Diabetes Priority: Secondary Status: Chronic Qualifiers: Diabetes mellitus type: type 2 Diabetes mellitus intermediate designer insulin use: without residential use Diabetes mellitus complication status: with unspecified complications Qualified Code(s): E11.8 - Type 2 diabetes mellitus with unspecified complications (3) HTN (hypertension), benign Priority: Secondary Status: Chronic (4) DVT prophylaxis Priority: Primary Status: Resolved (5) UTI (urinary tract infection), bacterial Priority: Primary Status: Acute (6) Hypoxia Priority: Primary Status: Acute Hospital course: Mr. Dill is a 57 year old male with PMH of SHANE, DM, HTN, Morbid Obesity, Chronic pain syndrome. Patient was admitted for management of SBO and UTI, s/p small bowel resection, reduction of internal hernia, adhesinolysis on 2017. POD 9 , tolerating orally, ambualtory, without n/v/d/abdominal pain/abdominal distension. Home medications have been resumed. he has required O2 throughout his hospital stay and qualified for home O2 at discharge His home meds are the same, he is prescribed oral antibiotics for 7 more days to complete a 14 day course of treatment for complicated UTI Follow up with PCP, Surgery. Discharge discussed with: patient, family, nurse, social work, case management, home energy consultant supervisor - Time Spent with Patient Total time spent providing and/or coordinating discharge services: Less than 30 minutes - Discharge Medications Prescriptions: Cefdinir [Omnicef] 300 mg PO BID #14 capsule Home Medications: Albuterol Sulfate [Ventolin Hfa] 2 puff IH Q6H PRN 05/08/18 [History] Fenofibrate Nanocrystallized [Triglide] 160 mg PO DAILY 05/08/18 [History] Fluticasone Propionate Nasal [Flonase] 50 mcg NS DAILY PRN 05/08/18 [History] Fluticasone/Vilanterol [Breo Ellipta 200-25 Mcg INH] 1 puff IH DAILY 05/08/18 [History] Furosemide [Lasix] 40 mg PO DAILY 05/08/18 [History] Losartan Potassium [Cozaar] 100 mg PO DAILY 05/08/18 [History] Metformin HCl [Metformin HCl ER] 500 mg PO DAILY 05/08/18 [History] Metoprolol Succinate [Toprol Xl] 25 mg PO DAILY 05/08/18 [History] Oxycodone HCl [Roxybond] 15 mg PO Q6H 05/08/18 [History] Pregabalin [Lyrica] 200 mg PO TID 05/08/18 [History] Testosterone [Androgel] 4 appl TD DAILY 05/08/18 [History] Cefdinir [Omnicef] 300 mg PO BID #14 capsule 05/17/18 [Rx] Allergies/Adverse Reactions: Allergy/AdvReac Type Severity Reaction Status Date / Time lorazepam [From Ativan] AdvReac Hallucinati Verified 05/08/18 12:06 ng Date of admission: 05/08/18 11:48 Primary care physician: Keith Spann MD Consults: 05/08/18 11:36 Consult to Surgery [CONS] Stat Consulting Provider: [facility] Reason for Consult: small bowel obstruction Call Completed: Yes 05/11/18 09:45 Consult to Occupational Therapy [CONS] Stat Comment: Evaluate, develop and implement POC Reason for Consult: Mobilization d/c planning Does patient have active BEDREST order?: No Is patient medically & hemodynamically stable?: Yes Patient assessed for mobility or mobilized this visit?: No Consult to Physical Therapy [CONS] Stat Comment: Evaluate, develop and implement POC Reason for Consult: Mobilization d/c planning Does patient have active BEDREST order?: No Is patient medically & hemodynamically stable?: Yes Patient assessed for mobility or mobilized this visit?: No Consult to Respiratory Therapy [CONS] Stat Reason for Consult: Aggressive pulm toileting Accupap Accapella Time Notified: 09:47 Call Completed: Yes 05/11/18 09:54 Consult to Division Chief [CONS] Routine Reason for SW Consult: possible placement/ d.c. planning 05/12/18 09:05 PICC Consult [Consult to Invasive Line Access Team] [CONS] Routine Reason for Consult: TPN Line Type: PICC 05/12/18 09:10 Consult to Nutrition [CONS] Routine Comment: TPN Consulting Provider: NUTRITION Reason for Dietary Consult: MST Score 05/12/18 09:55 Consult to Nutrition [CONS] Stat Comment: Total fluid rate (MIV and TPN) 100 ml/hr Consulting Provider: NUTRITION Reason for Dietary Consult: TPN Start and Manage 05/12/18 12:37 Consult to Invasive Line Access Team [CONS] Routine Reason for Consult: Picc Line Insertion Line Type: PICC Discharging clinician: Kayden Ojeda Anticipated date of discharge: 05/17/18 - Constitutional Vitals: Temp Pulse Resp BP Pulse Ox 98.1 F 69 17 137/73 90 05/17/18 11:22 05/17/18 11:22 05/17/18 11:22 05/17/18 11:22 05/17/18 11:22 General appearance: Present: A&O X 3, morbidly obese, pleasant, no acute distress Exam: General appearance: Not in any distress, morbidly obese Head exam: Atraumatic Eye exam: EOMI, PERRLA ENT exam: Moist oral mucosa Neck:normal inspection Respiratory exam: CTAB Cardiovascular exam: S1, S2 only, RRR, No m/g/r Abdomen: No tenderness , scar, clean, no rebound, no guarding, slight, no bowel sounds Extremities exam:no pedal edema Skin- warm, dry, intact Neurological exam: AAOX3 CN II-XII intact, no focal deficits. No facial droop. Normal speech. - Patient Status Disposition: Home Health Service Condition: Good Functional capacity at discharge: uses cane/walker Overall status at discharge: patient is progressing back to baseline - Discharge Instructions Instructions: Bowel Resection (DC) Follow Up With: Giles Palmer MD [Non-Partnered Physician] - 05/26/18 4:15 pm Additional Instructions: General Surgical Discharge Instructions 1. No pushing, pulling, or lifting greater than 15 lbs for 2-4 weeks (depending upon procedure). 2. You may shower beginning today, but no tub baths, soaking, or swimming for 2 weeks. 3. You may resume driving when you are off narcotics and are safe to react in a car. 4. Continue your home pain medications 5. Take stool softeners (Colace) or a water based laxative (Miralax) while taking narcotics. You may hold for loose stools. 6. Report any fevers greater than 100.5F, increase abdominal discomfort, drainage that looks like pus, increased redness or pain at the surgical site, or any vomiting. 7. Report any pain in the calves, shortness of breath, or rapid heartbeat. 8. Follow-up in the office as directed. 9. If you were prescribed antibiotics, do not stop them without talking to your provider. - Diet and Activity Activity: resume usual activities as tolerated, wear oxygen at all times Diet: low fat, low cholesterol, low salt diet
== END 2018-05-17 15:15 | disposition home health service (06) | DRG 330 ==
LOC: EMEROOARM 07:54 → 3ANU 11:48
PROVIDERS: ADMIT Hospitalist; ATTEND Hospitalist

== ENCOUNTER 2019-12-01 15:29 | Inpatient (IN) ==
[2019-12-01 15:59] LABS: Hematocrit 39.1 % (37.5-50.1); Hemoglobin 13.7 g/dL (12.9-16.9); Mean Corpuscular Hemoglobin 34.7 pg (28.0-33.3); Mean Platelet Volume 9.2 fL (9.4-12.4); Platelet Count 175 K/mcL (140-400); Red Blood Count 3.95 M/mcL (4.19-5.50); Red Cell Distribution Width 11.9 % (11.5-14.5); White Blood Count 10.2 K/mcL (4.3-11.1)
[2019-12-01 16:17] LABS: BUN/Creatinine Ratio 18 (6-26); Blood Urea Nitrogen 15 mg/dL (8-23); Calcium 9.7 mg/dL (8.6-10.3); Carbon Dioxide 35 mEq/L (23-29); Chloride 100 mEq/L (98-107); Glucose 190 mg/dL (70-105); Osmolality,Calculated 294 (280-300); Potassium 4.4 mEq/L (3.5-5.1); Sodium 139 mEq/L (136-145); eGFR For African Americans > 60 (> 60); eGFR For Non-African Americans > 60 (> 60)
[2019-12-01 16:47] LABS: Bilirubin,Urine Negative (Negative); Blood,Urine Negative (Negative); Clarity,Urine Clear (Clear); Color,Urine Yellow (Yellow); Glucose,Urine (UA) 300 mg/dL (Normal); Ketones,Urine Negative (Negative); Leukocyte Esterase,Urine Negative (Negative); Nitrite,Urine Negative (Negative); PH,Urine 5.5 pH Units (5.0-8.0); Protein,Urine Trace mg/dL (Neg-Trace); Specific Gravity,Urine 1.021 (1.010-1.025)
[2019-12-01] MEDS ORDERED: *HR* HYDROmorphone (PF) 1 MG/ML SYRINGE IVP STA (17:33)
[2019-12-01] MEDS ORDERED: 0.9 % Sodium Chloride 1,000 ML IVC ONE (17:33)
[2019-12-01] MEDS ORDERED: Ondansetron 4 MG/2 ML VIAL IVP ONE (17:33)
[2019-12-01] MEDS ORDERED: *HR* Labetalol 20 MG/4 ML SYRINGE IVP ONE (17:37)
[2019-12-01] MEDS ORDERED: Naloxone 0.4 MG/ML INJ IVP PRN (19:41)
[2019-12-01] MEDS ORDERED: Ondansetron 4 MG/2 ML VIAL IVP PRN (19:41)
[2019-12-01] MEDS ORDERED: Ringers Solution, Lactated 1,000 ML IVC SCH (19:45)
[2019-12-01] MEDS ORDERED: *HR* Dextrose 50 % in Water (Vial) 50 ML VIAL IVP PRN (19:46)
[2019-12-01] MEDS ORDERED: D5% in Water 1,000 ML IVC PRN (19:46)
[2019-12-01] MEDS ORDERED: Dextrose Gel 15 GM/37.5 ML TUBE PO PRN ×2 (19:46)
[2019-12-02] MEDS ORDERED: Insulin LISPRO 300 UNITS/3 ML VIAL SQ SCH
[2019-12-02] MEDS ORDERED: Ondansetron 4 MG/2 ML VIAL IVP ONE ×2 (01:36→04:38)
[2019-12-02] MEDS ORDERED: *HR* FentaNYL (PF) 100 MCG/2 ML VIAL ONE (01:43)
[2019-12-02] MEDS ORDERED: Lidocaine HCL 4 ML Topical Solution (Laryng-O-Jet Kit Sterile Pak) TP ONE (01:43)
[2019-12-02] MEDS ORDERED: *HR* Rocuronium Bromide 50 MG/5 ML VIAL ONE (01:43)
[2019-12-02] MEDS ORDERED: Lidocaine -MPF 2% 2 ML VIAL ONE (01:43)
[2019-12-02] MEDS ORDERED: *HR* Propofol 200 MG/20 ML VIAL IVP ONE (01:43)
[2019-12-02] MEDS ORDERED: Ondansetron 4 MG/2 ML VIAL ONE (01:43)
[2019-12-02] MEDS ORDERED: Dexamethasone 4 MG/ML VIAL ONE (01:43)
[2019-12-02] MEDS ORDERED: *HR* Succinylcholine 200 MG/10 ML VIAL IVP ONE (01:43)
[2019-12-02] MEDS ORDERED: *HR* PHENYLEPHRINE 1,000 MCG/10 ML SYRINGE IVP ONE (03:15)
[2019-12-02] MEDS: *HR* FentaNYL (PF) 100 MCG/2 ML VIAL IVP PRN ×2 (03:43→03:55)
[2019-12-02] MEDS ORDERED: D5% in Water 1,000 ML IVC PRN (04:38)
[2019-12-02] MEDS ORDERED: *HR* Dextrose 50 % in Water (Vial) 50 ML VIAL IVP PRN (04:38)
[2019-12-02] MEDS ORDERED: Ondansetron 4 MG/2 ML VIAL IVP PRN (04:38)
[2019-12-02] MEDS ORDERED: Naloxone 0.4 MG/ML INJ IVP PRN (04:38)
[2019-12-02] MEDS ORDERED: Dextrose Gel 15 GM/37.5 ML TUBE PO PRN ×2 (04:38)
[2019-12-02] MEDS ORDERED: *HR* FentaNYL (PF) 100 MCG/2 ML VIAL IVP PRN (04:38)
[2019-12-02] MEDS ORDERED: Ringers Solution, Lactated 1,000 ML IVC SCH (04:38)
[2019-12-02] MEDS: Insulin LISPRO 300 UNITS/3 ML VIAL SQ SCH ×3 (05:08→17:42)
[2019-12-02 06:07] LABS: Basophils % 0.2 %; Eosinophils % 0.5 %; Hematocrit 36.9 % (37.5-50.1); Hemoglobin 12.8 g/dL (12.9-16.9); Immature Granulocytes % 0.1 % (0-4); Lymphocytes # 0.8 K/mcL (0.6-4.6); Lymphocytes % 9.7 %; Mean Corpuscular HGB Conc 34.7 g/dL (31.6-35.5); Mean Corpuscular Hemoglobin 35.1 pg (28.0-33.3); Mean Corpuscular Volume 101.1 fL (83.0-100.0); Mean Platelet Volume 9.8 fL (9.4-12.4); Monocytes # 0.7 K/mcL (0.0-1.3); Monocytes % 7.7 %; Neutrophils # 7.1 K/mcL (1.6-8.9); Platelet Count 164 K/mcL (140-400); Red Blood Count 3.65 M/mcL (4.19-5.50); Red Cell Distribution Width 11.9 % (11.5-14.5); Segmented Neutrophils % 81.8 %; White Blood Count 8.6 K/mcL (4.3-11.1)
[2019-12-02 06:09] LABS: INR 1.2; Prothrombin Time 13.2 Seconds (9.4-12.1)
[2019-12-02 06:12] LABS: Activated Partial Thrombo Time 23.2 Seconds (26.0-36.0)
[2019-12-02 06:32] LABS: Alanine Aminotransferase 39 Units/L (7-52); Albumin 3.5 g/dL (3.5-5.7); Albumin/Globulin Ratio 1.3 (1.1-2.2); Alkaline Phosphatase 41 Units/L (34-104); Aspartate Amino Transferase 38 Units/L (13-39); BUN/Creatinine Ratio 16 (6-26); Bilirubin,Total 0.8 mg/dL (0.3-1.0); Blood Urea Nitrogen 12 mg/dL (8-23); Calcium 8.9 mg/dL (8.6-10.3); Carbon Dioxide 35 mEq/L (23-29); Chloride 100 mEq/L (98-107); Globulin 2.7 g/dL (2.4-3.5); Glucose 162 mg/dL (70-105); Osmolality,Calculated 293 (280-300); Potassium 4.1 mEq/L (3.5-5.1); Sodium 140 mEq/L (136-145); Total Protein 6.2 g/dL (6.4-8.9); eGFR For African Americans > 60 (> 60); eGFR For Non-African Americans > 60 (> 60)
[2019-12-02] MEDS ORDERED: Acetaminophen IV 1,000 MG/100 ML INFUS..BTL IVPB ONE (10:50)
[2019-12-02] MEDS ORDERED: Acetaminophen IV 1,000 MG/100 ML INFUS..BTL IVPB SCH (12:00)
[2019-12-02] MEDS ORDERED: Pregabalin 50 MG CAPSULE PO SCH (15:00)
[2019-12-02] MEDS: *HR* Enoxaparin 40 MG/0.4 ML SYRINGE SQ SCH (15:39)
[2019-12-02] MEDS: Acetaminophen IV 1,000 MG/100 ML INFUS..BTL IVPB SCH (17:51)
[2019-12-03] MEDS: Acetaminophen IV 1,000 MG/100 ML INFUS..BTL IVPB SCH ×4 (00:09→16:49)
[2019-12-03] MEDS: Insulin LISPRO 300 UNITS/3 ML VIAL SQ SCH ×4 (00:09→17:38)
[2019-12-03] MEDS: *HR* Enoxaparin 40 MG/0.4 ML SYRINGE SQ SCH (05:56)
[2019-12-03] MEDS ORDERED: *HR* HYDROcodone/Acet 5/325 mg TABLET PO PRN (08:10)
[2019-12-04] MEDS ORDERED: Melatonin 3 MG TABLET PO ONE ×2 (00:08→22:59)
[2019-12-04] MEDS: Insulin LISPRO 300 UNITS/3 ML VIAL SQ SCH ×4 (00:22→17:17)
[2019-12-04] MEDS: Acetaminophen IV 1,000 MG/100 ML INFUS..BTL IVPB SCH ×4 (00:23→17:16)
[2019-12-04 03:46] LABS: Hematocrit 34.2 % (37.5-50.1); Hemoglobin 11.9 g/dL (12.9-16.9); Mean Corpuscular HGB Conc 34.8 g/dL (31.6-35.5); Mean Corpuscular Hemoglobin 34.1 pg (28.0-33.3); Mean Platelet Volume 9.2 fL (9.4-12.4); Platelet Count 153 K/mcL (140-400); Red Blood Count 3.49 M/mcL (4.19-5.50); Red Cell Distribution Width 11.8 % (11.5-14.5); White Blood Count 8.8 K/mcL (4.3-11.1)
[2019-12-04 04:07] LABS: BUN/Creatinine Ratio 18 (6-26); Blood Urea Nitrogen 12 mg/dL (8-23); Carbon Dioxide 37 mEq/L (23-29); Chloride 98 mEq/L (98-107); Glucose 122 mg/dL (70-105); Osmolality,Calculated 291 (280-300); Potassium 3.4 mEq/L (3.5-5.1); Sodium 140 mEq/L (136-145); eGFR For African Americans > 60 (> 60); eGFR For Non-African Americans > 60 (> 60)
[2019-12-04] MEDS: *HR* Enoxaparin 40 MG/0.4 ML SYRINGE SQ SCH (06:06)
[2019-12-04] MEDS: Metoprolol XL (24 HR) Succ 25 MG TAB.ER.24H PO SCH (09:58)
[2019-12-04] MEDS: *HR* HYDROcodone/Acet 5/325 mg TABLET PO PRN (10:04)
[2019-12-05] MEDS: Acetaminophen IV 1,000 MG/100 ML INFUS..BTL IVPB SCH ×2 (00:29→06:21)
[2019-12-05] MEDS: Insulin LISPRO 300 UNITS/3 ML VIAL SQ SCH ×2 (00:30→06:12)
[2019-12-05] MEDS: *HR* Enoxaparin 40 MG/0.4 ML SYRINGE SQ SCH (06:21)
[2019-12-05] MEDS: Metoprolol XL (24 HR) Succ 25 MG TAB.ER.24H PO SCH (07:45)
[2019-12-05] MEDS: *HR* HYDROcodone/Acet 5/325 mg TABLET PO PRN (11:38)
[2019-12-05 11:44] VITALS: BP 148/77
== END 2019-12-05 12:51 | disposition home health service (06) | DRG 354 ==
LOC: EMEROOARM 15:29 → 3ANU 15:29
PROVIDERS: ADMIT Pharmacist; ATTEND Pharmacist

== ENCOUNTER 2021-11-17 19:07 | Inpatient (IN) ==
[2021-11-17] MEDS ORDERED: Furosemide 40 MG/4 ML VIAL IVP ONE (19:25)
[2021-11-17] MEDS ORDERED: Ipratropium/Albuterol Neb 3 ML IH ONE (19:25)
[2021-11-17 19:36] LABS: Basophils # 0.1 K/mcL (0.0-0.2); Basophils % 0.3 %; Eosinophils % 0.1 %; Hematocrit 36.5 % (37.5-50.1); Hemoglobin 12.5 g/dL (12.9-16.9); Immature Granulocytes % 1.3 % (0-4); Lymphocytes % 4.8 %; Mean Corpuscular HGB Conc 34.2 g/dL (31.6-35.5); Mean Corpuscular Hemoglobin 33.3 pg (28.0-33.3); Mean Corpuscular Volume 97.3 fL (83.0-100.0); Mean Platelet Volume 9.6 fL (9.4-12.4); Monocytes # 1.6 K/mcL (0.0-1.3); Monocytes % 7.5 %; Neutrophils # 18.4 K/mcL (1.6-8.9); Platelet Count 230 K/mcL (140-400); Red Blood Count 3.75 M/mcL (4.19-5.50); Red Cell Distribution Width 13.8 % (11.5-14.5); White Blood Count 21.4 K/mcL (4.3-11.1)
[2021-11-17 19:43] LABS: VBG HCO3 25 mEq/L (21-27); VBG PCO2 65 mmHg (41-51); VBG PH 7.19 pH Units (7.32-7.42); VBG PO2 61 mmHg (25-50)
[2021-11-17] MEDS ORDERED: Piperacillin/Tazobactam 3.375 GM in 0.9 % Sodium Chloride Mini Bag 100 ML IVPB ONE (19:43)
[2021-11-17 19:56] LABS: Amorphous Sediment,Urine Few per hpf (None-Few); Bacteria,Urine Few per hpf (None-Few); Bilirubin,Urine Negative (Negative); Blood,Urine Moderate (Negative); Clarity,Urine Turbid (Clear); Color,Urine Yellow (Yellow); Glucose,Urine (UA) 50 mg/dL (Normal); Hyaline Casts,Urine Few per lpf (None Seen); Ketones,Urine Negative (Negative); Leukocyte Esterase,Urine Negative (Negative); Mucus,Urine Few per lpf (None-Few); Nitrite,Urine Negative (Negative); PH,Urine 5.5 pH Units (5.0-8.0); Protein,Urine 100 mg/dL (Neg-Trace); RBC,Urine 0-3 per hpf (0-3); Renal Epithelial Cells,Urine Few per hpf (None-Few); Specific Gravity,Urine 1.024 (1.010-1.025); Squamous Epithelial Cell,Urine Few per hpf (None-Few); Transitional Epi Cells,Urine Few per hpf (None-Few)
[2021-11-17] MEDS ORDERED: Vancomycin 2,000 MG/520 ML IV.SOLN IVPB ONE (20:00)
[2021-11-17 20:01] LABS: Alanine Aminotransferase 22 Units/L (7-52); Albumin 3.6 g/dL (3.5-5.7); Albumin/Globulin Ratio 0.9 (1.1-2.2); Alkaline Phosphatase 74 Units/L (34-104); Aspartate Amino Transferase 73 Units/L (13-39); BUN/Creatinine Ratio 9 (6-26); Bilirubin,Direct 0.5 mg/dL (0.0-0.2); Bilirubin,Indirect 0.8 mg/dL (0.0-1.0); Bilirubin,Total 1.3 mg/dL (0.3-1.0); Blood Urea Nitrogen 56 mg/dL (8-23); Calcium 7.7 mg/dL (8.6-10.3); Carbon Dioxide 24 mEq/L (23-29); Chloride 93 mEq/L (98-107); Ethanol < 10 mg/dL (Less than 10); Glucose 240 mg/dL (70-105); Osmolality,Calculated 297 (280-300); Sodium 132 mEq/L (136-145); Total Protein 7.6 g/dL (6.4-8.9); Troponin I 0.18 ng/mL (< 0.04); eGFR For African Americans 11 (> 60); eGFR For Non-African Americans 9 (> 60)
[2021-11-17 20:01] LABS: Amphetamine Screen,Urine Negative ng/mL (Cutoff=1000); Barbiturate Screen,Urine Negative ng/mL (Cutoff=200); Benzodiazepines Screen,Urine Positive ng/mL (Cutoff=200); Cannabinoid Screen,Urine Negative ng/mL (Cutoff = 50); Cocaine Screen,Urine Negative ng/mL (Cutoff= 300); Opiate Screen,Urine Positive ng/mL (Cutoff=300); Phencyclidine Screen,Urine Negative ng/mL (Cutoff=25)
[2021-11-17] MEDS ORDERED: 0.9 % Sodium Chloride 500 ML IVC ONE (21:28)
[2021-11-17 23:06] LABS: ABG Base Excess -4 mEq/L (-2 to 3); ABG HCO3 25 mEq/L (21-27); ABG Oxygen Saturation 96 % (95-98); ABG PCO2 62 mmHg (35-45); ABG PH 7.21 pH Units (7.32-7.45); ABG PO2 99 mmHg (85-104); ABG TCO2 27 mEq/L (20-26)
[2021-11-18] MEDS ORDERED: 0.9 % Sodium Chloride 500 ML IVC ONE (00:34)
[2021-11-18] MEDS ORDERED: diazePAM 10 MG/2 ML SYRINGE IV STA (00:35)
[2021-11-18] MEDS ORDERED: Melatonin 3 MG TABLET PO PRN (02:44)
[2021-11-18] MEDS ORDERED: Naloxone 0.4 MG/ML INJ IVP PRN (02:44)
[2021-11-18] MEDS ORDERED: Ondansetron ODT 4 MG TAB.RAPDIS SL PRN (02:44)
[2021-11-18 03:25] LABS: Creatine Kinase 5466 Units/L (30-223)
[2021-11-18 03:34] LABS: Adenovirus Not Detected (Not Detect); Coronavirus 229E Not Detected (Not Detect); Coronavirus HKU1 Not Detected (Not Detect); Coronavirus NL63 Not Detected (Not Detect); Coronavirus OC43 Not Detected (Not Detect); Human Metapneumovirus Not Detected (Not Detect); Human Rhinovirus/Enterovirus Not Detected (Not Detect); SARS-CoV-2 Not Detected (Not Detect)
[2021-11-18 03:35] LABS: Bordetella Pertussis Not Detected (Not Detect); Chlamydophila pneumoniae Not Detected (Not Detect); Influenza A Subtype 2009 H1 Not Detected (Not Detect); Influenza B Not Detected (Not Detect); Mycoplasma pneumoniae Not Detected (Not Detect); Parainfluenza Virus 1 Not Detected (Not Detect); Parainfluenza Virus 2 Not Detected (Not Detect); Parainfluenza Virus 3 Not Detected (Not Detect); Parainfluenza Virus 4 Not Detected (Not Detect); Respiratory Syncytial Virus Not Detected (Not Detect)
[2021-11-18] MEDS ORDERED: 0.9 % Sodium Chloride 250 ML IVC ONE (04:32)
[2021-11-18] MEDS ORDERED: 0.9 % Sodium Chloride 1,000 ML ONE ×2 (04:52→15:38)
[2021-11-18 04:57] LABS: ABG Base Excess -4 mEq/L (-2 to 3); ABG HCO3 24 mEq/L (21-27); ABG Oxygen Saturation 92 % (95-98); ABG PCO2 55 mmHg (35-45); ABG PH 7.25 pH Units (7.32-7.45); ABG PO2 76 mmHg (85-104); ABG TCO2 26 mEq/L (20-26); Blood Gas VT 600 cc
[2021-11-18] MEDS ORDERED: 0.9 % Sodium Chloride 1,000 ML IVC SCH (05:00)
[2021-11-18] MEDS ORDERED: *HR* Heparin 5,000 UNIT/ML VIAL IVP PRN ×7 (05:09→18:27)
[2021-11-18] MEDS ORDERED: *HR* Heparin 5,000 UNIT/ML VIAL IVP ONE (05:09)
[2021-11-18] MEDS ORDERED: Heparin 25,000UNIT/250ML 1/2NS 25,000 UNIT/250 ML IV.SOLN IVC SCH ×2 (05:15→18:30)
[2021-11-18] MEDS: Piperacillin/Tazobactam 3.375 GM in 0.9 % Sodium Chloride Mini Bag 100 ML IVPB SCH ×2 (05:20→19:51)
[2021-11-18 05:23] LABS: Basophils # 0.1 K/mcL (0.0-0.2); Basophils % 0.2 %; Hematocrit 34.8 % (37.5-50.1); Hemoglobin 11.7 g/dL (12.9-16.9); Immature Granulocytes % 0.8 % (0-4); Lymphocytes # 1.1 K/mcL (0.6-4.6); Lymphocytes % 5.5 %; Mean Corpuscular HGB Conc 33.6 g/dL (31.6-35.5); Mean Corpuscular Hemoglobin 33.3 pg (28.0-33.3); Mean Corpuscular Volume 99.1 fL (83.0-100.0); Mean Platelet Volume 9.6 fL (9.4-12.4); Monocytes # 1.7 K/mcL (0.0-1.3); Monocytes % 8.3 %; Neutrophils # 17.3 K/mcL (1.6-8.9); Platelet Count 198 K/mcL (140-400); Red Blood Count 3.51 M/mcL (4.19-5.50); Red Cell Distribution Width 13.9 % (11.5-14.5); Segmented Neutrophils % 85.2 %; White Blood Count 20.3 K/mcL (4.3-11.1)
[2021-11-18 05:31] LABS: INR 1.4; Prothrombin Time 16.1 Seconds (9.4-12.1)
[2021-11-18 05:46] LABS: Albumin 3.5 g/dL (3.5-5.7); Albumin/Globulin Ratio 0.9 (1.1-2.2); Bilirubin,Total 1.4 mg/dL (0.3-1.0); Calcium 7.5 mg/dL (8.6-10.3); Globulin 3.8 g/dL (2.4-3.5); Heparin anti-factor XA UFH < 0.04 IU/mL (0.30-0.70); Magnesium 1.7 mg/dL (1.6-2.6); Phosphorous 9.1 mg/dL (2.7-4.5); Potassium 5.2 mEq/L (3.5-5.1); Total Protein 7.3 g/dL (6.4-8.9)
[2021-11-18 05:48] LABS: Troponin I 0.26 ng/mL (< 0.04)
[2021-11-18 05:50] LABS: D-Dimer 2007 ng/mLFEU (0-500)
[2021-11-18 05:58] LABS: Thyroid Stimulating Hormone 0.304 mcIU/mL (0.340-5.600)
[2021-11-18] MEDS ORDERED: Perflutren Lipid Microsphere 1.3 ML in 0.9 % Sodium Chloride 8.7 ML IVP PRN ×2 (06:34→15:16)
[2021-11-18] MEDS ORDERED: Calcium Gluconate 1gm/50mL 1 GM/50 ML BAG IVPB PRN (07:37)
[2021-11-18] MEDS ORDERED: Furosemide 40 MG/4 ML VIAL IVP ONE (07:38)
[2021-11-18] MEDS: 0.9 % Sodium Chloride 1,000 ML IVC SCH ×3 (08:17→12:26)
[2021-11-18] MEDS ORDERED: Pantoprazole 40 MG VIAL IVP SCH (09:00)
[2021-11-18 09:20] LABS: Calcium 7.2 mg/dL (8.6-10.3); Potassium 5.4 mEq/L (3.5-5.1)
[2021-11-18] MEDS ORDERED: Norepinephrine 4 MG/254 ML IV.SOLN IVC ONE (09:55)
[2021-11-18 09:56] LABS: Complement C3 168 mg/dL (87-200)
[2021-11-18] MEDS ORDERED: Dexmedetomidine HCl 400 MCG/100 ML MLS IVC ONE (09:59)
[2021-11-18 10:01] LABS: Sodium, Urine 22.6 mEq/L
[2021-11-18] MEDS ORDERED: Artificial Tears SOLN 15 ML BOTTLE BOTH EYES PRN (10:04)
[2021-11-18] MEDS: FentaNYL (PF) 1,000 MCG/100 ML IV.SOLN IVC SCH ×2 (10:17→15:25)
[2021-11-18] MEDS: Dexmedetomidine HCl 400 MCG/100 ML MLS IVC SCH ×2 (10:20→15:07)
[2021-11-18] MEDS ORDERED: Albumin 25% 25gram/100mL 25 GM/100 ML IV.SOLN IVPB PRN (10:29)
[2021-11-18] MEDS ORDERED: 0.9 % Sodium Chloride 250 ML IVC PRN (10:29)
[2021-11-18] MEDS ORDERED: *HR* Heparin 10,000 UNIT/10 ML VIAL IV PRN (10:29)
[2021-11-18] MEDS ORDERED: 0.9 % Sodium Chloride 2,000 ML PRIME SCH (10:30)
[2021-11-18] MEDS: Ipratropium/Albuterol Neb 3 ML IH SCH ×3 (10:56→22:45)
[2021-11-18] MEDS ORDERED: Dextrose Gel 15 GM/37.5 ML TUBE PO PRN ×2 (10:59)
[2021-11-18] MEDS ORDERED: D5% in Water 1,000 ML IVC PRN (10:59)
[2021-11-18] MEDS ORDERED: *HR* Dextrose 50 % in Water (Syg) 50 ML SYRINGE IVP PRN (10:59)
[2021-11-18] MEDS: Norepinephrine 4 MG/254 ML IV.SOLN IVC SCH ×3 (11:14→18:31)
[2021-11-18] MEDS: Artificial Tears SOLN 15 ML BOTTLE BOTH EYES SCH ×4 (11:16→23:18)
[2021-11-18] MEDS ORDERED: *HR* Midazolam HCl 2 MG/2 ML VIAL IVP ONE (11:28)
[2021-11-18] MEDS ORDERED: *HR* Etomidate 20 MG/10 ML AMPUL IVP ONE (11:28)
[2021-11-18 11:34] LABS: ABG Base Excess -5 mEq/L (-2 to 3); ABG HCO3 24 mEq/L (21-27); ABG Oxygen Saturation 99 % (95-98); ABG PCO2 65 mmHg (35-45); ABG PH 7.18 pH Units (7.32-7.45); ABG PO2 202 mmHg (85-104); ABG TCO2 26 mEq/L (20-26); Blood Gas Modality ASSIST CONTROL; Blood Gas VT 420 cc
[2021-11-18] MEDS: Insulin LISPRO 300 UNITS/3 ML VIAL SUBQ SCH ×4 (11:49→23:18)
[2021-11-18] MEDS ORDERED: Metoclopramide 10 MG/2 ML VIAL IVP ONE (12:03)
[2021-11-18] MEDS ORDERED: *HR* Alteplase (Cathflo) 2 MG VIAL IVP PRN (12:33)
[2021-11-18] MEDS: Heparin 25,000UNIT/250ML 1/2NS 25,000 UNIT/250 ML IV.SOLN IVC SCH ×2 (16:31→23:19)
[2021-11-18 16:38] LABS: ABG Base Excess -4 mEq/L (-2 to 3); ABG HCO3 25 mEq/L (21-27); ABG Oxygen Saturation 99 % (95-98); ABG PCO2 62 mmHg (35-45); ABG PH 7.21 pH Units (7.32-7.45); ABG PO2 191 mmHg (85-104); ABG TCO2 27 mEq/L (20-26); Blood Gas Modality ASSIST CONTROL; Blood Gas VT 500 cc
[2021-11-18] MEDS: PrismaSATE BGK 4/2.5 5,000 ML CRRT SCH ×4 (18:30→23:34)
[2021-11-18] MEDS: Pantoprazole 40 MG VIAL IVP SCH (18:47)
[2021-11-18] MEDS: Chlorhexidine Rinse 15 ML MOUTHWASH MM SCH (19:52)
[2021-11-18 20:17] LABS: A.calcoaceticus-baumannii cplx Not Detected (Not Detect); Bacteroides fragilis by PCR Not Detected (Not Detect); Candida albicans by PCR Not Detected (Not Detect); Candida auris by PCR Not Detected (Not Detect); Candida glabrata by PCR Not Detected (Not Detect); Candida krusei by PCR Not Detected (Not Detect); Candida parapsilosis by PCR Not Detected (Not Detect); Candida tropicalis by PCR Not Detected (Not Detect); Crypto. neoformans/gattii PCR Not Detected (Not Detect); Enterobacter cloacae Cmplx PCR Not Detected (Not Detect); Enterobacterales by PCR Not Detected (Not Detect); Enterococcus faecalis by PCR Not Detected (Not Detect); Enterococcus faecium by PCR Not Detected (Not Detect); Escherichia coli by PCR Not Detected (Not Detect); Klebs. pneumoniae group by PCR Not Detected (Not Detect); Klebsiella aerogenes by PCR Not Detected (Not Detect); Klebsiella oxytoca by PCR Not Detected (Not Detect); Proteus by PCR Not Detected (Not Detect); Pseudomonas aeruginosa by PCR Not Detected (Not Detect); Salmonella species by PCR Not Detected (Not Detect); Serratia marcescens by PCR Not Detected (Not Detect); Staph epidermidis by PCR DETECTED (Not Detect); Staph lugdunensis by PCR Not Detected (Not Detect); Staphylococcus aureus by PCR Not Detected (Not Detect); Stenotrophomonas maltophilia Not Detected (Not Detect); Streptococcus agalactiae(B)PCR Not Detected (Not Detect); Streptococcus by PCR Not Detected (Not Detect); Streptococcus pneumoniae PCR Not Detected (Not Detect); Streptococcus pyogenes (A) PCR Not Detected (Not Detect); mecA/C Methicillin-Resist Gene Not Detected (Not Detect)
[2021-11-19] MEDS: FentaNYL (PF) 1,000 MCG/100 ML IV.SOLN IVC SCH ×3 (00:34→15:30)
[2021-11-19] MEDS: PrismaSATE BGK 4/2.5 5,000 ML CRRT SCH ×5 (01:22→13:43)
[2021-11-19] MEDS: Heparin 25,000UNIT/250ML 1/2NS 25,000 UNIT/250 ML IV.SOLN IVC SCH ×3 (02:32→19:19)
[2021-11-19] MEDS: Artificial Tears SOLN 15 ML BOTTLE BOTH EYES SCH ×5 (03:13→20:19)
[2021-11-19] MEDS: Ipratropium/Albuterol Neb 3 ML IH SCH ×4 (03:30→21:06)
[2021-11-19] MEDS: Insulin LISPRO 300 UNITS/3 ML VIAL SUBQ SCH ×5 (03:30→20:19)
[2021-11-19 03:56] LABS: Basophils # 0.1 K/mcL (0.0-0.2); Basophils % 0.3 %; Eosinophils # 0.1 K/mcL (0.0-0.6); Eosinophils % 0.4 %; Hematocrit 35.7 % (37.5-50.1); Hemoglobin 11.6 g/dL (12.9-16.9); Immature Granulocytes % 0.7 % (0-4); Lymphocytes # 1.3 K/mcL (0.6-4.6); Lymphocytes % 6.8 %; Mean Corpuscular HGB Conc 32.5 g/dL (31.6-35.5); Mean Corpuscular Hemoglobin 32.6 pg (28.0-33.3); Mean Corpuscular Volume 100.3 fL (83.0-100.0); Mean Platelet Volume 9.6 fL (9.4-12.4); Monocytes # 1.6 K/mcL (0.0-1.3); Monocytes % 8.3 %; Neutrophils # 15.7 K/mcL (1.6-8.9); Platelet Count 187 K/mcL (140-400); Red Blood Count 3.56 M/mcL (4.19-5.50); Red Cell Distribution Width 13.8 % (11.5-14.5); Segmented Neutrophils % 83.5 %; White Blood Count 18.9 K/mcL (4.3-11.1)
[2021-11-19 04:00] LABS: VBG Ionized Calcium 1.08 mmol/L (1.15-1.35)
[2021-11-19 04:07] LABS: INR 1.3; Prothrombin Time 14.2 Seconds (9.4-12.1)
[2021-11-19 04:16] LABS: Troponin I 0.12 ng/mL (< 0.04)
[2021-11-19 04:17] LABS: Albumin/Globulin Ratio 0.8 (1.1-2.2); Bilirubin,Total 1.2 mg/dL (0.3-1.0); Calcium 7.9 mg/dL (8.6-10.3); Globulin 3.7 g/dL (2.4-3.5); Potassium 4.5 mEq/L (3.5-5.1); Total Protein 6.7 g/dL (6.4-8.9)
[2021-11-19 04:20] LABS: ABG Base Excess -2 mEq/L (-2 to 3); ABG HCO3 26 mEq/L (21-27); ABG Oxygen Saturation 95 % (95-98); ABG PCO2 59 mmHg (35-45); ABG PH 7.25 pH Units (7.32-7.45); ABG PO2 87 mmHg (85-104); ABG TCO2 28 mEq/L (20-26); Blood Gas Modality AF; Blood Gas VT 500 cc
[2021-11-19] MEDS: Dexmedetomidine HCl 400 MCG/100 ML MLS IVC SCH ×2 (04:31→12:47)
[2021-11-19 04:42] LABS: Estimated Average Glucose 220 mg/dl; Hemoglobin A1C 9.3 %
[2021-11-19 04:49] LABS: Hepatitis B Surface Antibody < 3.10 mIU/mL
[2021-11-19] MEDS: Calcium Gluconate 1gm/50mL 1 GM/50 ML BAG IVPB SCH ×2 (04:56→05:55)
[2021-11-19] MEDS: Piperacillin/Tazobactam 3.375 GM in 0.9 % Sodium Chloride Mini Bag 100 ML IVPB SCH ×2 (04:57→17:46)
[2021-11-19] MEDS: Pantoprazole 40 MG VIAL IVP SCH ×2 (04:57→17:46)
[2021-11-19 05:01] LABS: Hepatitis B Surface Antigen Nonreactive (Nonreactive)
[2021-11-19] MEDS ORDERED: Vancomycin 2,000 MG/520 ML IV.SOLN IVPB ONE (07:05)
[2021-11-19] MEDS: Norepinephrine 4 MG/254 ML IV.SOLN IVC SCH ×2 (07:05→20:19)
[2021-11-19] MEDS: Chlorhexidine Rinse 15 ML MOUTHWASH MM SCH ×2 (09:03→20:19)
[2021-11-19 11:20] LABS: ABG Base Excess -2 mEq/L (-2 to 3); ABG HCO3 24 mEq/L (21-27); ABG Oxygen Saturation 96 % (95-98); ABG PCO2 44 mmHg (35-45); ABG PH 7.34 pH Units (7.32-7.45); ABG PO2 90 mmHg (85-104); ABG TCO2 25 mEq/L (20-26); Blood Gas VT 500 cc
[2021-11-19] MEDS ORDERED: *HR* Midazolam HCl 2 MG/2 ML VIAL IVP PRN (14:00)
[2021-11-19] MEDS ORDERED: Midazolam HCl 50 MG/50 ML IV.SOLN IVC SCH (15:15)
[2021-11-19] MEDS ORDERED: *HR* Midazolam HCl 5 MG/5 ML VIAL IVP ONE (15:17)
[2021-11-19] MEDS: Vancomycin 1,500 MG/265 ML IV.SOLN IVPB SCH (20:21)
[2021-11-19] MEDS: Insulin DETEMIR 100 UNIT/ML X5UNITS SUBQ SCH (20:21)
[2021-11-20] MEDS: Artificial Tears SOLN 15 ML BOTTLE BOTH EYES SCH ×7 (00:38→23:26)
[2021-11-20] MEDS: Insulin LISPRO 300 UNITS/3 ML VIAL SUBQ SCH ×7 (00:48→23:26)
[2021-11-20] MEDS: Norepinephrine 4 MG/254 ML IV.SOLN IVC SCH ×4 (00:48→23:31)
[2021-11-20] MEDS: Dexmedetomidine HCl 400 MCG/100 ML MLS IVC SCH ×3 (01:52→19:42)
[2021-11-20] MEDS: Heparin 25,000UNIT/250ML 1/2NS 25,000 UNIT/250 ML IV.SOLN IVC SCH ×4 (02:41→23:58)
[2021-11-20] MEDS: Ipratropium/Albuterol Neb 3 ML IH SCH ×4 (03:20→21:30)
[2021-11-20 04:00] LABS: Basophils % 0.3 %; Eosinophils # 0.1 K/mcL (0.0-0.6); Hematocrit 28.5 % (37.5-50.1); Immature Granulocytes % 0.8 % (0-4); Lymphocytes % 8.1 %; Mean Platelet Volume 9.8 fL (9.4-12.4); Monocytes # 1.1 K/mcL (0.0-1.3); Monocytes % 9.1 %; Neutrophils # 10.1 K/mcL (1.6-8.9); Platelet Count 145 K/mcL (140-400); Red Blood Count 2.85 M/mcL (4.19-5.50); Red Cell Distribution Width 13.8 % (11.5-14.5); Segmented Neutrophils % 80.7 %; White Blood Count 12.5 K/mcL (4.3-11.1)
[2021-11-20 04:10] LABS: Hemoglobin 9.4 g/dL (12.9-16.9)
[2021-11-20 04:19] LABS: ABG Base Excess 0 mEq/L (-2 to 3); ABG HCO3 27 mEq/L (21-27); ABG Oxygen Saturation 98 % (95-98); ABG PCO2 55 mmHg (35-45); ABG PO2 121 mmHg (85-104); ABG TCO2 29 mEq/L (20-26); Blood Gas Modality NIV
[2021-11-20 04:20] LABS: Albumin 2.5 g/dL (3.5-5.7); Albumin/Globulin Ratio 0.7 (1.1-2.2); Bilirubin,Direct 0.5 mg/dL (0.0-0.2); Bilirubin,Indirect 0.3 mg/dL (0.0-1.0); Bilirubin,Total 0.8 mg/dL (0.3-1.0); Globulin 3.4 g/dL (2.4-3.5); Magnesium 1.7 mg/dL (1.6-2.6); Phosphorous 3.4 mg/dL (2.7-4.5); Total Protein 5.9 g/dL (6.4-8.9)
[2021-11-20 04:33] LABS: Alanine Aminotransferase 41 Units/L (7-52); Albumin 2.5 g/dL (3.5-5.7); Albumin/Globulin Ratio 0.7 (1.1-2.2); Alkaline Phosphatase 80 Units/L (34-104); Aspartate Amino Transferase 116 Units/L (13-39); BUN/Creatinine Ratio 30 (6-26); Bilirubin,Total 0.8 mg/dL (0.3-1.0); Blood Urea Nitrogen 35 mg/dL (8-23); Calcium 8.4 mg/dL (8.6-10.3); Carbon Dioxide 28 mEq/L (23-29); Chloride 105 mEq/L (98-107); Creatine Kinase 3547 Units/L (30-223); Globulin 3.4 g/dL (2.4-3.5); Glucose 169 mg/dL (70-105); Osmolality,Calculated 296 (280-300); Potassium 4.6 mEq/L (3.5-5.1); Sodium 137 mEq/L (136-145); Total Protein 5.9 g/dL (6.4-8.9); eGFR For African Americans > 60 (> 60); eGFR For Non-African Americans > 60 (> 60)
[2021-11-20] MEDS: Pantoprazole 40 MG VIAL IVP SCH ×2 (05:18→16:46)
[2021-11-20] MEDS: Piperacillin/Tazobactam 3.375 GM in 0.9 % Sodium Chloride Mini Bag 100 ML IVPB SCH ×3 (05:18→23:30)
[2021-11-20] MEDS: Vancomycin 1,500 MG/265 ML IV.SOLN IVPB SCH (07:36)
[2021-11-20] MEDS: Chlorhexidine Rinse 15 ML MOUTHWASH MM SCH ×2 (07:36→19:42)
[2021-11-20 09:27] LABS: Kappa Qnt Free Light Chains 173.31 mg/L (3.30-19.40); Lambda Qnt Free Light Chains 75.62 mg/L (5.71-26.30)
[2021-11-20] MEDS ORDERED: Lidocaine Viscous Oral Soln 15 ML SOLUTION MM PRN (10:10)
[2021-11-20] MEDS ORDERED: 0.9 % Sodium Chloride 500 ML IVC ONE (10:10)
[2021-11-20] MEDS: *HR* FentaNYL (PF) 100 MCG/2 ML VIAL IVP PRN ×2 (10:47→10:53)
[2021-11-20] MEDS: *HR* Midazolam HCl 5 MG/5 ML VIAL IVP PRN ×2 (10:47→10:53)
[2021-11-20 12:34] LABS: ANA IgG by ELISA NONE DETECTED (None Detected)
[2021-11-20 15:11] LABS: ABG Base Excess 1 mEq/L (-2 to 3); ABG HCO3 28 mEq/L (21-27); ABG Oxygen Saturation 92 % (95-98); ABG PCO2 52 mmHg (35-45); ABG PH 7.33 pH Units (7.32-7.45); ABG PO2 68 mmHg (85-104); ABG TCO2 29 mEq/L (20-26)
[2021-11-20 16:56] LABS: ANCA IFA Titer <1:20 (<1:20)
[2021-11-20] MEDS: *HR* LORazepam 2 MG/ML VIAL IVP PRN (17:47)
[2021-11-20] MEDS: Insulin DETEMIR 100 UNIT/ML X5UNITS SUBQ SCH (19:45)
[2021-11-21] MEDS: Artificial Tears SOLN 15 ML BOTTLE BOTH EYES SCH ×5 (03:20→20:26)
[2021-11-21] MEDS: Insulin LISPRO 300 UNITS/3 ML VIAL SUBQ SCH ×5 (03:20→20:15)
[2021-11-21] MEDS: Ipratropium/Albuterol Neb 3 ML IH SCH ×4 (03:22→21:54)
[2021-11-21] MEDS: *HR* LORazepam 2 MG/ML VIAL IVP PRN (03:59)
[2021-11-21 04:02] LABS: Basophils % 0.3 %; Eosinophils # 0.2 K/mcL (0.0-0.6); Eosinophils % 1.8 %; Hematocrit 28.6 % (37.5-50.1); Hemoglobin 9.6 g/dL (12.9-16.9); Lymphocytes # 1.2 K/mcL (0.6-4.6); Lymphocytes % 12.3 %; Mean Corpuscular HGB Conc 33.6 g/dL (31.6-35.5); Mean Corpuscular Hemoglobin 33.1 pg (28.0-33.3); Mean Corpuscular Volume 98.6 fL (83.0-100.0); Mean Platelet Volume 9.6 fL (9.4-12.4); Monocytes # 0.8 K/mcL (0.0-1.3); Monocytes % 7.7 %; Neutrophils # 7.7 K/mcL (1.6-8.9); Platelet Count 144 K/mcL (140-400); Red Cell Distribution Width 13.7 % (11.5-14.5); Segmented Neutrophils % 76.9 %
[2021-11-21] MEDS: Dexmedetomidine HCl 400 MCG/100 ML MLS IVC SCH (04:13)
[2021-11-21 04:21] LABS: Alanine Aminotransferase 38 Units/L (7-52); Albumin 2.7 g/dL (3.5-5.7); Albumin/Globulin Ratio 0.8 (1.1-2.2); Alkaline Phosphatase 111 Units/L (34-104); Aspartate Amino Transferase 81 Units/L (13-39); BUN/Creatinine Ratio 34 (6-26); Bilirubin,Total 0.8 mg/dL (0.3-1.0); Blood Urea Nitrogen 31 mg/dL (8-23); Calcium 8.8 mg/dL (8.6-10.3); Carbon Dioxide 28 mEq/L (23-29); Chloride 108 mEq/L (98-107); Creatine Kinase 1869 Units/L (30-223); Globulin 3.5 g/dL (2.4-3.5); Glucose 150 mg/dL (70-105); Osmolality,Calculated 305 (280-300); Potassium 4.4 mEq/L (3.5-5.1); Sodium 143 mEq/L (136-145); Total Protein 6.2 g/dL (6.4-8.9); eGFR For African Americans > 60 (> 60); eGFR For Non-African Americans > 60 (> 60)
[2021-11-21] MEDS: Pantoprazole 40 MG VIAL IVP SCH ×2 (05:09→18:35)
[2021-11-21] MEDS: Heparin 25,000UNIT/250ML 1/2NS 25,000 UNIT/250 ML IV.SOLN IVC SCH ×3 (07:37→22:58)
[2021-11-21] MEDS: Chlorhexidine Rinse 15 ML MOUTHWASH MM SCH ×2 (07:45→20:13)
[2021-11-21] MEDS: Piperacillin/Tazobactam 3.375 GM in 0.9 % Sodium Chloride Mini Bag 100 ML IVPB SCH (07:45)
[2021-11-21 08:16] LABS: ABG Base Excess 2 mEq/L (-2 to 3); ABG HCO3 29 mEq/L (21-27); ABG Oxygen Saturation 97 % (95-98); ABG PCO2 55 mmHg (35-45); ABG PH 7.33 pH Units (7.32-7.45); ABG PO2 102 mmHg (85-104); ABG TCO2 31 mEq/L (20-26)
[2021-11-21 08:19] LABS: ANCA IFA Pattern NONE DETECTED (None Detected); Serine Protease-3 Antibody 5 AU/mL (0-19)
[2021-11-21] MEDS: Norepinephrine 4 MG/254 ML IV.SOLN IVC SCH ×2 (10:08→20:29)
[2021-11-21] MEDS: Pregabalin 75 MG CAPSULE PO SCH ×3 (12:22→20:13)
[2021-11-21] MEDS: Ampicillin/Sulbactam 3,000 MG in 0.9 % Sodium Chloride Mini Bag 100 ML IVPB SCH ×2 (12:22→18:34)
[2021-11-21] MEDS ORDERED: Pregabalin 75 MG CAPSULE PO SCH (14:00)
[2021-11-21] MEDS: Metoprolol XL (24 HR) Succ 50 MG TAB.ER.24H PO SCH (14:51)
[2021-11-21] MEDS: Insulin DETEMIR 100 UNIT/ML X5UNITS SUBQ SCH (20:13)
[2021-11-22] MEDS: Artificial Tears SOLN 15 ML BOTTLE BOTH EYES SCH ×4 (00:23→11:45)
[2021-11-22] MEDS: Insulin LISPRO 300 UNITS/3 ML VIAL SUBQ SCH ×6 (00:23→21:08)
[2021-11-22] MEDS: Ampicillin/Sulbactam 3,000 MG in 0.9 % Sodium Chloride Mini Bag 100 ML IVPB SCH ×5 (00:29→23:48)
[2021-11-22] MEDS: Dexmedetomidine HCl 400 MCG/100 ML MLS IVC SCH ×2 (00:37→13:18)
[2021-11-22] MEDS: Norepinephrine 4 MG/254 ML IV.SOLN IVC SCH (00:38)
[2021-11-22 02:52] LABS: Alpha 2 Globulin (PEP) 1.05 g/dL (0.48-1.05); Beta Globulin (PEP) 1.08 g/dL (0.48-1.10)
[2021-11-22] MEDS: Ipratropium/Albuterol Neb 3 ML IH SCH ×4 (03:42→19:58)
[2021-11-22 04:48] LABS: Basophils # 0.1 K/mcL (0.0-0.2); Basophils % 0.7 %; Eosinophils # 0.3 K/mcL (0.0-0.6); Eosinophils % 3.4 %; Hematocrit 30.4 % (37.5-50.1); Hemoglobin 10.1 g/dL (12.9-16.9); Immature Granulocytes % 4.9 % (0-4); Lymphocytes # 1.3 K/mcL (0.6-4.6); Lymphocytes % 14.6 %; Mean Corpuscular HGB Conc 33.2 g/dL (31.6-35.5); Mean Corpuscular Hemoglobin 33.1 pg (28.0-33.3); Mean Corpuscular Volume 99.7 fL (83.0-100.0); Mean Platelet Volume 9.6 fL (9.4-12.4); Monocytes # 0.7 K/mcL (0.0-1.3); Monocytes % 7.9 %; Neutrophils # 5.9 K/mcL (1.6-8.9); Platelet Count 164 K/mcL (140-400); Red Blood Count 3.05 M/mcL (4.19-5.50); Red Cell Distribution Width 13.3 % (11.5-14.5); Segmented Neutrophils % 68.5 %; White Blood Count 8.6 K/mcL (4.3-11.1)
[2021-11-22 05:08] LABS: Alanine Aminotransferase 41 Units/L (7-52); Albumin 2.8 g/dL (3.5-5.7); Albumin/Globulin Ratio 0.8 (1.1-2.2); Alkaline Phosphatase 136 Units/L (34-104); Aspartate Amino Transferase 68 Units/L (13-39); BUN/Creatinine Ratio 28 (6-26); Bilirubin,Total 0.6 mg/dL (0.3-1.0); Blood Urea Nitrogen 22 mg/dL (8-23); Calcium 8.6 mg/dL (8.6-10.3); Carbon Dioxide 29 mEq/L (23-29); Chloride 106 mEq/L (98-107); Creatine Kinase 968 Units/L (30-223); Globulin 3.6 g/dL (2.4-3.5); Glucose 133 mg/dL (70-105); Osmolality,Calculated 297 (280-300); Potassium 3.9 mEq/L (3.5-5.1); Sodium 141 mEq/L (136-145); Total Protein 6.4 g/dL (6.4-8.9); eGFR For African Americans > 60 (> 60); eGFR For Non-African Americans > 60 (> 60)
[2021-11-22] MEDS: Pantoprazole 40 MG VIAL IVP SCH (05:35)
[2021-11-22] MEDS: Heparin 25,000UNIT/250ML 1/2NS 25,000 UNIT/250 ML IV.SOLN IVC SCH ×3 (06:01→20:33)
[2021-11-22] MEDS ORDERED: Furosemide 40 MG/4 ML VIAL IVP ONE (07:07)
[2021-11-22] MEDS: Chlorhexidine Rinse 15 ML MOUTHWASH MM SCH (08:09)
[2021-11-22] MEDS: Pregabalin 75 MG CAPSULE PO SCH ×3 (08:09→21:49)
[2021-11-22] MEDS: Metoprolol XL (24 HR) Succ 50 MG TAB.ER.24H PO SCH (08:09)
[2021-11-22 10:06] LABS: Immunoglobulin G 1170 mg/dL (768-1632); Immunoglobulin M 33 mg/dL (35-263)
[2021-11-22 10:07] LABS: IFE Reflexed IFE Done; Immunoglobulin A 285 mg/dL (68-408)
[2021-11-22] MEDS ORDERED: *HR* Dextrose 50 % in Water (Syg) 50 ML SYRINGE IVP PRN (13:08)
[2021-11-22] MEDS ORDERED: Naloxone 0.4 MG/ML INJ IVP PRN (13:08)
[2021-11-22] MEDS ORDERED: *HR* Heparin 5,000 UNIT/ML VIAL IVP PRN ×2 (13:08)
[2021-11-22] MEDS ORDERED: D5% in Water 1,000 ML IVC PRN (13:08)
[2021-11-22] MEDS ORDERED: Dextrose Gel 15 GM/37.5 ML TUBE PO PRN ×2 (13:08)
[2021-11-22] MEDS ORDERED: Ondansetron ODT 4 MG TAB.RAPDIS SL PRN (13:08)
[2021-11-22] MEDS ORDERED: Melatonin 3 MG TABLET PO PRN (13:08)
[2021-11-22] MEDS: Valsartan 160 MG TABLET PO SCH (15:37)
[2021-11-22] MEDS ORDERED: Insulin LISPRO 300 UNITS/3 ML VIAL SUBQ SCH ×2 (16:30→21:00)
[2021-11-22] MEDS: Insulin DETEMIR 100 UNIT/ML X5UNITS SUBQ SCH (21:48)
[2021-11-23] MEDS: Heparin 25,000UNIT/250ML 1/2NS 25,000 UNIT/250 ML IV.SOLN IVC SCH (02:20)
[2021-11-23] MEDS: Ipratropium/Albuterol Neb 3 ML IH SCH ×4 (03:57→20:25)
[2021-11-23 04:42] LABS: Basophils # 0.1 K/mcL (0.0-0.2); Basophils % 0.9 %; Eosinophils # 0.4 K/mcL (0.0-0.6); Eosinophils % 4.2 %; Hematocrit 30.7 % (37.5-50.1); Hemoglobin 10.3 g/dL (12.9-16.9); Immature Granulocytes % 6.1 % (0-4); Lymphocytes # 1.6 K/mcL (0.6-4.6); Lymphocytes % 17.5 %; Mean Corpuscular HGB Conc 33.6 g/dL (31.6-35.5); Mean Corpuscular Volume 98.4 fL (83.0-100.0); Mean Platelet Volume 9.4 fL (9.4-12.4); Monocytes # 0.7 K/mcL (0.0-1.3); Monocytes % 7.9 %; Neutrophils # 5.7 K/mcL (1.6-8.9); Platelet Count 158 K/mcL (140-400); Red Blood Count 3.12 M/mcL (4.19-5.50); Red Cell Distribution Width 13.2 % (11.5-14.5); Segmented Neutrophils % 63.4 %
[2021-11-23 04:58] LABS: Alanine Aminotransferase 39 Units/L (7-52); Albumin 2.7 g/dL (3.5-5.7); Albumin/Globulin Ratio 0.7 (1.1-2.2); Alkaline Phosphatase 109 Units/L (34-104); Aspartate Amino Transferase 48 Units/L (13-39); BUN/Creatinine Ratio 22 (6-26); Bilirubin,Total 0.5 mg/dL (0.3-1.0); Blood Urea Nitrogen 15 mg/dL (8-23); Calcium 8.4 mg/dL (8.6-10.3); Carbon Dioxide 29 mEq/L (23-29); Chloride 104 mEq/L (98-107); Creatine Kinase 372 Units/L (30-223); Globulin 3.7 g/dL (2.4-3.5); Glucose 128 mg/dL (70-105); Osmolality,Calculated 292 (280-300); Potassium 3.8 mEq/L (3.5-5.1); Sodium 140 mEq/L (136-145); Total Protein 6.4 g/dL (6.4-8.9); eGFR For African Americans > 60 (> 60); eGFR For Non-African Americans > 60 (> 60)
[2021-11-23] MEDS: Ampicillin/Sulbactam 3,000 MG in 0.9 % Sodium Chloride Mini Bag 100 ML IVPB SCH ×3 (05:39→16:47)
[2021-11-23] MEDS: Valsartan 160 MG TABLET PO SCH (08:08)
[2021-11-23] MEDS: Metoprolol XL (24 HR) Succ 50 MG TAB.ER.24H PO SCH (08:08)
[2021-11-23] MEDS: Pregabalin 75 MG CAPSULE PO SCH ×3 (08:08→21:06)
[2021-11-23] MEDS: Insulin LISPRO 300 UNITS/3 ML VIAL SUBQ SCH ×4 (08:08→21:06)
[2021-11-23] MEDS: *HR* Rivaroxaban 15 MG TABLET PO SCH ×2 (08:52→21:06)
[2021-11-23] MEDS ORDERED: Furosemide 40 MG/4 ML VIAL IVP ONE (10:25)
[2021-11-23] MEDS: *HR* OxyCODONE Immed Rel 5 MG TABLET PO PRN (16:46)
[2021-11-23] MEDS ORDERED: *HR* Rivaroxaban 10 MG TABLET PO SCH (17:00)
[2021-11-23] MEDS: Insulin DETEMIR 100 UNIT/ML X5UNITS SUBQ SCH (21:06)
[2021-11-24] MEDS: Ampicillin/Sulbactam 3,000 MG in 0.9 % Sodium Chloride Mini Bag 100 ML IVPB SCH ×4 (01:28→17:44)
[2021-11-24] MEDS: Ipratropium/Albuterol Neb 3 ML IH SCH ×2 (04:00→07:35)
[2021-11-24 06:35] LABS: BUN/Creatinine Ratio 14 (6-26); Blood Urea Nitrogen 10 mg/dL (8-23); Calcium 8.4 mg/dL (8.6-10.3); Carbon Dioxide 34 mEq/L (23-29); Chloride 105 mEq/L (98-107); Glucose 174 mg/dL (70-105); Osmolality,Calculated 297 (280-300); Potassium 3.6 mEq/L (3.5-5.1); Sodium 142 mEq/L (136-145); eGFR For African Americans > 60 (> 60); eGFR For Non-African Americans > 60 (> 60)
[2021-11-24] MEDS: *HR* OxyCODONE Immed Rel 5 MG TABLET PO PRN ×3 (08:34→20:04)
[2021-11-24] MEDS: Valsartan 160 MG TABLET PO SCH (08:34)
[2021-11-24] MEDS: Pregabalin 75 MG CAPSULE PO SCH ×3 (08:34→20:04)
[2021-11-24] MEDS: Metoprolol XL (24 HR) Succ 50 MG TAB.ER.24H PO SCH (08:34)
[2021-11-24] MEDS: *HR* Rivaroxaban 15 MG TABLET PO SCH ×2 (08:34→20:04)
[2021-11-24] MEDS: Insulin LISPRO 300 UNITS/3 ML VIAL SUBQ SCH ×4 (08:39→21:18)
[2021-11-24] MEDS: Furosemide 40 MG/4 ML VIAL IVP SCH ×2 (08:40→16:24)
[2021-11-24] MEDS ORDERED: Ipratropium/Albuterol Neb 3 ML IH PRN (15:47)
[2021-11-24] MEDS: Insulin DETEMIR 100 UNIT/ML X5UNITS SUBQ SCH (21:18)
[2021-11-25] MEDS: Ampicillin/Sulbactam 3,000 MG in 0.9 % Sodium Chloride Mini Bag 100 ML IVPB SCH ×2 (00:15→05:45)
[2021-11-25] MEDS: Furosemide 40 MG/4 ML VIAL IVP SCH (08:03)
[2021-11-25] MEDS: *HR* Rivaroxaban 15 MG TABLET PO SCH (08:04)
[2021-11-25] MEDS: Valsartan 160 MG TABLET PO SCH (08:04)
[2021-11-25] MEDS: Metoprolol XL (24 HR) Succ 50 MG TAB.ER.24H PO SCH (08:04)
[2021-11-25] MEDS: Pregabalin 75 MG CAPSULE PO SCH ×2 (08:04→15:32)
[2021-11-25] MEDS: Insulin LISPRO 300 UNITS/3 ML VIAL SUBQ SCH ×2 (08:04→12:35)
[2021-11-25] MEDS: *HR* OxyCODONE Immed Rel 5 MG TABLET PO PRN ×2 (08:13→15:31)
[2021-11-25 09:27] LABS: Hematocrit 33.4 % (37.5-50.1); Hemoglobin 11.3 g/dL (12.9-16.9); Mean Corpuscular HGB Conc 33.8 g/dL (31.6-35.5); Mean Corpuscular Hemoglobin 32.8 pg (28.0-33.3); Mean Corpuscular Volume 97.1 fL (83.0-100.0); Mean Platelet Volume 9.9 fL (9.4-12.4); Platelet Count 228 K/mcL (140-400); Red Blood Count 3.44 M/mcL (4.19-5.50); Red Cell Distribution Width 13.1 % (11.5-14.5); White Blood Count 11.2 K/mcL (4.3-11.1)
[2021-11-25 09:48] LABS: BUN/Creatinine Ratio 18 (6-26); Blood Urea Nitrogen 13 mg/dL (8-23); Calcium 8.3 mg/dL (8.6-10.3); Carbon Dioxide 34 mEq/L (23-29); Chloride 100 mEq/L (98-107); Glucose 230 mg/dL (70-105); Magnesium 1.1 mg/dL (1.6-2.6); Osmolality,Calculated 295 (280-300); Potassium 3.9 mEq/L (3.5-5.1); Sodium 139 mEq/L (136-145); eGFR For African Americans > 60 (> 60); eGFR For Non-African Americans > 60 (> 60)
[2021-11-25] MEDS ORDERED: CeFAZolin 2,000 MG/120 ML BAG IVPB ONE (10:50)
[2021-11-25 14:16] VITALS: BP 119/75; PULSE 83; TEMP 98.6; O2SAT 90
[2021-11-25] MEDS ORDERED: CeFAZolin 2,000 MG/120 ML BAG IVPB SCH (17:00)
== END 2021-11-25 17:07 | disposition home health service (06) | DRG 871 ==
LOC: EMEROOARM 19:07 → 3NENU 19:07 → 2NENU 11-18 04:03 → SUATTDRO 11-18 04:10 → 3BNU 11-22 14:20
PROVIDERS: ADMIT Internal Medicine; ATTEND Internal Medicine
PROC: ENDOEBX (2021-11-18 14:15)

== ENCOUNTER 2022-02-06 03:28 | Observation (INO) ==
[2022-02-06 05:19] LABS: Basophils % 0.3 %; Eosinophils # 0.3 K/mcL (0.0-0.6); Eosinophils % 2.2 %; Hematocrit 34.4 % (37.5-50.1); Hemoglobin 11.6 g/dL (12.9-16.9); Immature Granulocytes % 0.4 % (0-4); Lymphocytes # 1.4 K/mcL (0.6-4.6); Lymphocytes % 11.8 %; Mean Corpuscular HGB Conc 33.7 g/dL (31.6-35.5); Mean Corpuscular Volume 94.8 fL (83.0-100.0); Mean Platelet Volume 9.6 fL (9.4-12.4); Monocytes # 0.9 K/mcL (0.0-1.3); Platelet Count 191 K/mcL (140-400); Red Blood Count 3.63 M/mcL (4.19-5.50); Red Cell Distribution Width 12.8 % (11.5-14.5); Segmented Neutrophils % 77.3 %; White Blood Count 11.6 K/mcL (4.3-11.1)
[2022-02-06 05:38] LABS: Albumin 3.4 g/dL (3.5-5.7); Albumin/Globulin Ratio 0.9 (1.1-2.2); Bilirubin,Total 0.6 mg/dL (0.3-1.0); Calcium 8.5 mg/dL (8.6-10.3); Total Protein 7.4 g/dL (6.4-8.9)
[2022-02-06 05:44] LABS: Activated Partial Thrombo Time 34.6 Seconds (26.0-36.0); INR 1.4; Prothrombin Time 15.4 Seconds (9.4-12.1)
[2022-02-06 06:11] LABS: Bilirubin,Urine Negative (Negative); Blood,Urine Negative (Negative); Clarity,Urine Clear (Clear); Color,Urine Yellow (Yellow); Glucose,Urine (UA) Normal (Normal); Ketones,Urine Negative (Negative); Leukocyte Esterase,Urine Negative (Negative); Nitrite,Urine Negative (Negative); PH,Urine 5.5 pH Units (5.0-8.0); Protein,Urine Trace mg/dL (Neg-Trace); Specific Gravity,Urine 1.024 (1.010-1.025); Urobilinogen,Urine Normal (Normal)
[2022-02-06 06:32] LABS: Influenza A PCR Negative (Negative); Influenza B PCR Negative (Negative); Resp. Syncytial Virus PCR Negative (Negative)
[2022-02-06 06:33] LABS: SARS-CoV-2 by PCR (In House) Negative (Negative)
[2022-02-06] MEDS ORDERED: Ondansetron 4 MG/2 ML VIAL IVP PRN (07:46)
[2022-02-06] MEDS ORDERED: Naloxone 0.4 MG/ML INJ IVP PRN (07:46)
[2022-02-06] MEDS ORDERED: *HR* Dextrose 50 % in Water (Syg) 50 ML SYRINGE IVP PRN (07:55)
[2022-02-06] MEDS ORDERED: Dextrose Gel 15 GM/37.5 ML TUBE PO PRN ×2 (07:55)
[2022-02-06] MEDS ORDERED: D5% in Water 1,000 ML IVC PRN (07:55)
[2022-02-06] MEDS ORDERED: Iopamidol - 370 500 ML MLS IVP ONE (09:04)
[2022-02-06] MEDS ORDERED: Ipratropium/Albuterol Neb 3 ML IH PRN (11:12)
[2022-02-06] MEDS: Insulin LISPRO 300 UNITS/3 ML VIAL SUBQ SCH ×3 (12:50→21:01)
[2022-02-06] MEDS ORDERED: polyethylene glycoL 3350 17 GM POWD.PACK PO PRN (15:58)
[2022-02-06] MEDS: 0.9 % Sodium Chloride 1,000 ML IVC SCH (16:01)
[2022-02-06] MEDS: Pregabalin 50 MG CAPSULE PO SCH ×2 (16:04→21:54)
[2022-02-06] MEDS: Acetaminophen 325 MG TABLET PO PRN (16:05)
[2022-02-06] MEDS: Nystatin POWDER 30 GM BOTTLE TP SCH ×2 (16:05→21:01)
[2022-02-07 05:12] LABS: Basophils % 0.4 %; Eosinophils # 0.3 K/mcL (0.0-0.6); Eosinophils % 4.2 %; Hematocrit 31.2 % (37.5-50.1); Hemoglobin 10.4 g/dL (12.9-16.9); Immature Granulocytes % 0.4 % (0-4); Lymphocytes # 1.5 K/mcL (0.6-4.6); Lymphocytes % 21.6 %; Mean Corpuscular HGB Conc 33.3 g/dL (31.6-35.5); Mean Corpuscular Hemoglobin 32.2 pg (28.0-33.3); Mean Corpuscular Volume 96.6 fL (83.0-100.0); Mean Platelet Volume 9.9 fL (9.4-12.4); Monocytes # 0.7 K/mcL (0.0-1.3); Monocytes % 9.5 %; Neutrophils # 4.5 K/mcL (1.6-8.9); Platelet Count 168 K/mcL (140-400); Red Blood Count 3.23 M/mcL (4.19-5.50); Red Cell Distribution Width 12.9 % (11.5-14.5); Segmented Neutrophils % 63.9 %
[2022-02-07 05:23] LABS: BUN/Creatinine Ratio 35 (6-26); Blood Urea Nitrogen 24 mg/dL (8-23); Calcium 8.5 mg/dL (8.6-10.3); Carbon Dioxide 31 mEq/L (23-29); Chloride 104 mEq/L (98-107); Glucose 144 mg/dL (70-105); Magnesium 1.6 mg/dL (1.6-2.6); Osmolality,Calculated 293 (280-300); Potassium 3.9 mEq/L (3.5-5.1); Sodium 138 mEq/L (136-145)
[2022-02-07] MEDS: 0.9 % Sodium Chloride 1,000 ML IVC SCH (05:23)
[2022-02-07] MEDS: Acetaminophen 325 MG TABLET PO PRN ×3 (06:12→20:20)
[2022-02-07 07:12] LABS: Estimated Average Glucose 160 mg/dl; Hemoglobin A1C 7.2 %
[2022-02-07] MEDS ORDERED: Tiotropium 10 INH DOSE IH ONE (07:53)
[2022-02-07] MEDS: Insulin LISPRO 300 UNITS/3 ML VIAL SUBQ SCH ×4 (08:12→20:21)
[2022-02-07] MEDS: Tiotropium 10 INH DOSE IH SCH (08:15)
[2022-02-07] MEDS: Valsartan 160 MG TABLET PO SCH (08:19)
[2022-02-07] MEDS: Metoprolol XL (24 HR) Succ 50 MG TAB.ER.24H PO SCH (08:20)
[2022-02-07] MEDS: Pregabalin 50 MG CAPSULE PO SCH ×3 (08:20→20:21)
[2022-02-07] MEDS: *HR* Rivaroxaban 10 MG TABLET PO SCH (08:20)
[2022-02-07] MEDS: Nystatin POWDER 30 GM BOTTLE TP SCH ×3 (08:21→20:21)
[2022-02-07 12:00] LABS: Folate 11.5 ng/mL (3.0-16.0)
[2022-02-08] MEDS ORDERED: *HR* HYDROcodone/Acet 5/325 mg TABLET PO ONE (00:39)
[2022-02-08 00:53] LABS: Amphetamine Screen,Urine Negative ng/mL (Cutoff=1000); Barbiturate Screen,Urine Positive ng/mL (Cutoff=200); Benzodiazepines Screen,Urine Positive ng/mL (Cutoff=200); Cannabinoid Screen,Urine Negative ng/mL (Cutoff = 50); Cocaine Screen,Urine Negative ng/mL (Cutoff= 300); Opiate Screen,Urine Negative ng/mL (Cutoff=300); Phencyclidine Screen,Urine Negative ng/mL (Cutoff=25)
[2022-02-08 04:01] VITALS: TEMP 98.6
[2022-02-08 06:45] VITALS: BP 138/83; PULSE 49
[2022-02-08] MEDS: Tiotropium 10 INH DOSE IH SCH (07:22)
[2022-02-08 07:25] VITALS: O2SAT 99
[2022-02-08] MEDS: Insulin LISPRO 300 UNITS/3 ML VIAL SUBQ SCH (07:50)
[2022-02-08] MEDS: Metoprolol XL (24 HR) Succ 50 MG TAB.ER.24H PO SCH (07:59)
[2022-02-08] MEDS: *HR* Rivaroxaban 10 MG TABLET PO SCH (08:00)
[2022-02-08] MEDS: Pregabalin 50 MG CAPSULE PO SCH (08:00)
[2022-02-08] MEDS: Valsartan 160 MG TABLET PO SCH (08:01)
[2022-02-08] MEDS: Acetaminophen 325 MG TABLET PO PRN (08:01)
[2022-02-08] MEDS: Nystatin POWDER 30 GM BOTTLE TP SCH (08:04)
== END 2022-02-08 14:25 | disposition home health service (06) ==
LOC: 3BNU 03:28 → EMEROOARM 03:28 → SUATTDRO 12:30 → 3BNU 15:00
PROVIDERS: ADMIT Pharmacist; ATTEND Nurse Practitioner